=== PATIENT | male | born 1985 | race American Indian/Alaskan Native ===

== ENCOUNTER 2018-06-10 15:58 | Emergency (ER) | payer SELFPAY ==
[2018-06-10 16:53] VITALS: BP 135/105
[2018-06-10] MEDS ORDERED: ASPIRIN PO ONE (16:56)
--- NOTE | 2018-06-10 18:20 | Emergency Department Report ---
ED Chest Pain HPI - General Chief Complaint: Chest Pain Stated Complaint: CHEST PAIN Time Seen by Provider: 06/10/18 17:56 Source: family Mode of arrival: Ambulatory Limitations: No Limitations - History of Present Illness Initial Comments: Mr. Stockton is a 33 yo male with hx of tobacco and alcohol abuse who presents with palpitations, tremors and weight loss over 6 months. Has had intermittent palpitations. Has had LUQ pain wiht eating for the past few weeks. Now he weighs 144 pounds. Formerly weighed 192 pounds in high school. Drinks 6+ beers daily. -: Gradual, month(s) (6) Onset: during rest Pain Location: substernal Severity: moderate Quality: other (palpitations) Consistency: intermittent - Related Data Previous Rx's Medication Instructions Recorded Last Taken Type Famotidine 20 mg PO BID 30 Days #60 tablet 06/10/18 Unknown Rx Allergies Allergy/AdvReac Type Severity Reaction Status Date / Time No Known Allergies Allergy Unverified 06/10/18 16:56 Heart Score - HEART Score History: Slightly suspicious EKG: Normal Age: < 45 Risk factors: No known risk factors Troponin: < normal limit HEART Score: 0 ED Review of Systems ROS: Stated complaint: CHEST PAIN Other details as noted in HPI Comment: All other systems reviewed and negative Constitutional: malaise Cardiovascular: palpitations Gastrointestinal: abdominal pain, nausea ED Past Medical Hx - Past Medical History Previous Medical History?: No - Surgical History Past Surgical History?: No - Social History Smoking Status: Current Every Day Smoker Substance Use Type: Alcohol - Medications Home Medications: Home Medications Medication Instructions Recorded Confirmed Last Taken Type Famotidine 20 mg PO BID 30 Days #60 tablet 06/10/18 Unknown Rx ED Physical Exam - General Limitations: No Limitations General appearance: alert, in no apparent distress, other (appears chronically ill, much older than stated age) - Head Head exam: Present: atraumatic, normocephalic - Eye Eye exam: Present: normal appearance - ENT ENT exam: Present: mucous membranes moist - Neck Neck exam: Present: normal inspection. Absent: tenderness, meningismus - Respiratory Respiratory exam: Present: normal lung sounds bilaterally. Absent: respiratory distress, wheezes, rales, rhonchi - Cardiovascular Cardiovascular Exam: Present: regular rate, normal rhythm, normal heart sounds. Absent: bradycardia, tachycardia, systolic murmur, diastolic murmur, rubs, gallop - GI/Abdominal GI/Abdominal exam: Present: soft, normal bowel sounds. Absent: distended, tenderness, guarding, rebound - Rectal Rectal exam: Present: deferred - Extremities Exam Extremities exam: Present: normal inspection - Back Exam Back exam: Present: normal inspection - Neurological Exam Neurological exam: Present: alert, oriented X3 - Psychiatric Psychiatric exam: Present: depressed. Absent: suicidal ideation - Skin Skin exam: Present: warm, dry, intact, normal color. Absent: rash ED Course Vital Signs 06/10/18 16:47 Temperature 98.8 F Pulse Rate 80 Respiratory 16 Rate Blood Pressure 135/105 O2 Sat by Pulse 99 Oximetry ED Medical Decision Making - EKG Data EKG shows normal: sinus rhythm, axis, intervals, QRS complexes Rate: normal - EKG Data Interpretation: pericarditis, other (diffuse ST elevation SC depression) - Medical Decision Making Mr. Stockton presents with palpitations, weight loss. DDX: hyperthyroidism, sequalae of alcohol use disorder, electolyte abnormalities, PUD. he has started new job. He will have health insurance within 90 days. I suggested primary care full physical exam. EKG showed signs of pericarditis without stereotypical chest pain. I do not suspect acute pericarditis. rx: famotidine for presumed alcoholic gastritis for LUQ pain i strongly suggested cessation of alcohol intake, which patient resisted. He says that his alcohol use is an uncontrollable habit. Critical care attestation.: If time is entered above; I have spent that time in minutes in the direct care of this critically ill patient, excluding procedure time. ED Disposition Clinical Impression: Alcohol abuse, Palpitations, Weight loss, LUQ pain Disposition: DC-01 TO HOME OR SELFCARE Is pt being admited?: No Does the pt Need Aspirin: No Condition: Stable Instructions: Abuse of Alcohol (ED), Palpitations (ED), Gastritis (ED) Prescriptions: Famotidine 20 mg PO BID 30 Days #60 tablet Forms: Work/School Release Form(ED)
== END 2018-06-10 18:34 | disposition home or self-care (01) ==
LOC: ED 15:58
DX: R10.12 Left upper quadrant pain (principal); R00.2 Palpitations; R25.1 Tremor, unspecified; R63.4 Abnormal weight loss; F17.200 Nicotine dependence, unspecified, uncomplicated
CPT/HCPCS: 93005; 93010; 99282

== ENCOUNTER 2019-05-25 16:16 | Emergency (ER) | payer SELFPAY ==
--- NOTE | 2019-05-25 17:00 | Emergency Department Report ---
Blank Doc - Documentation Documentation: 34-year-old male that presents with bilateral ankle and feet swelling. Patient sclera is jaundice. This initial assessment/diagnostic orders/clinical plan/treatment(s) is/are subject to change based on patient's health status, clinical progression and re- assessment by fellow clinical providers in the ED. Further treatment and workup at subsequent clinical providers discretion. Patient/guardians urged not to elope from the ED as their condition may be serious if not clinically assessed and managed. Initial orders include: 1- Patient sent to [facility] for further evaluation and treatment 2- labs
[2019-05-25 18:32] LABS: Basophils % (Auto) 0.8 % (0.0-1.8); Eosinophils # (Auto) 0.1 K/mm3 (0.0-0.4); Eosinophils % (Auto) 0.9 % (0.0-4.3); Hematocrit 26.7 % (35.5-45.6); Lymphocytes # (Auto) 1.9 K/mm3 (1.2-5.4); Lymphocytes % (Auto) 29.2 % (13.4-35.0); Mean Corpuscular HGB Conc 34 % (32-34); Mean Corpuscular Volume 116 fl (84-94); Monocytes # (Auto) 0.6 K/mm3 (0.0-0.8); Monocytes % (Auto) 8.7 % (0.0-7.3); Platelet Count 214 K/mm3 (140-440); Red Cell Distribution Width 15.6 % (13.2-15.2)
[2019-05-25 18:54] LABS: Alanine Aminotransferase 86 units/L (7-56); Albumin 3.7 g/dL (3.9-5); BUN/Creatinine Ratio 8; Blood Urea Nitrogen 5 mg/dL (9-20); Calcium 8.8 mg/dL (8.4-10.2); Hemolysis Index 2
[2019-05-25 18:59] LABS: Hepatitis C Virus Antibody Non-Reactive (NonReactive)
[2019-05-25 19:16] LABS: Hepatitis B Surface Antigen Non-Reactive (Negative)
--- NOTE | 2019-05-25 20:52 | Emergency Department Report ---
HPI - General Chief Complaint: Extremity Injury, Lower Time Seen by Provider: 05/25/19 16:59 - HPI HPI: 34-year-old -[place] male presents to the emergency department with complaint of a two-week history of bilateral lower extremity swelling. Patient presents with some jaundiced eyes. He has a history of alcohol abuse but denies alcohol dependence. He says he last drank a few days ago but "I have slowed down a lot." He says he has been told that he could have liver problems if he continues drinking at the rate that he did. He does not have a primary care physician. He has not taken anything for her symptoms prior to presentation. Patient did have a trip to [place] about 2 weeks ago in which he flew there. He denies any significant abdominal pain, abdominal distention, fever, nausea, vomiting. ED Past Medical Hx - Past Medical History Previous Medical History?: No Additional medical history: cirrohsis of liver - Surgical History Past Surgical History?: No - Social History Smoking Status: Current Every Day Smoker Substance Use Type: None - Medications Home Medications: Home Medications Medication Instructions Recorded Confirmed Last Taken Type Famotidine 20 mg PO BID 30 Days #60 tablet 06/10/18 Unknown Rx ED Review of Systems ROS: Stated complaint: BI ANKLE SWOLLEN Other details as noted in HPI Comment: All other systems reviewed and negative Constitutional: denies: chills, fever Eyes: denies: eye pain, vision change ENT: denies: ear pain, throat pain Respiratory: denies: cough, shortness of breath Cardiovascular: palpitations, edema. denies: chest pain Gastrointestinal: denies: abdominal pain, vomiting Genitourinary: denies: dysuria, discharge Musculoskeletal: joint swelling, myalgia Skin: denies: rash, lesions Neurological: denies: headache, weakness Physical Exam - Physical Exam Vital Signs: Vital Signs 05/25/19 05/25/19 16:54 20:11 Temperature 98.9 F 98.5 F Pulse Rate 96 H 83 Respiratory 18 20 Rate Blood Pressure 137/79 Blood Pressure 146/82 [Right] O2 Sat by Pulse 99 100 Oximetry Physical Exam: GENERAL: The patient is well-developed well-nourished. HENT: Normocephalic. Atraumatic. Patient has moist mucous membranes. EYES: Extraocular motions are intact. Pupils equal reactive to light bilaterally. Scleral icterus. NECK: Supple. Trachea is midline. CHEST/LUNGS: Clear to auscultation. There is no respiratory distress noted. HEART/CARDIOVASCULAR: Regular. There is no tachycardia. There is no murmur. ABDOMEN: Abdomen is soft, nontender. Patient has normal bowel sounds. There is no abdominal distention. SKIN: Skin is warm and dry. 1+ pitting edema of the bilateral lower extremities from the knees down to the ankles. NEURO: The patient is awake, alert, and oriented. The patient is cooperative. The patient has no focal neurologic deficits. Normal speech. MUSCULOSKELETAL: There is no tenderness or deformity. There is no evidence of acute injury. ED Course Vital Signs 05/25/19 05/25/19 16:54 20:11 Temperature 98.9 F 98.5 F Pulse Rate 96 H 83 Respiratory 18 20 Rate Blood Pressure 137/79 Blood Pressure 146/82 [Right] O2 Sat by Pulse 99 100 Oximetry - Consultations Consultation #1: 05/26/19 03:05 I spoke to the retail presentation specialist on-call, Dr. Tracy, agrees that this appears consistent with alcoholic hepatitis and says that the patient can follow up outpatient. He recommends cessation of alcohol use. ED Medical Decision Making - Lab Data Result diagrams: 05/25/19 18:09 05/25/19 18:09 - Radiology Data Radiology results: report reviewed, image reviewed interpreted by me: Chest x-ray does not show any acute process. There are no pleural effusions, obvious pneumonia and there is no pneumothorax. ULTRASOUND ABDOMEN, LIMITED (RIGHT UPPER QUADRANT) INDICATION: Abnormal LFTs, scleral icterus, LE swelling. COMPARISON: None available. FINDINGS: Pancreas: Visualized portion shows no significant abnormality. Liver: Normal. Gallbladder: Gallstones. The wall is mildly thickened measuring 3.3 mm. Negative for wall edema. Bile ducts: Normal. Common Bile Duct measures 2.6 mm. Free fluid: None. Additional Findings: None. IMPRESSION: 1. Gallstones with mild wall thickening. 2. Negative for biliary dilatation. CTA CHEST WITH IV CONTRAST INDICATION: SOB, bilateral lower extremity edema CONTRAST: 100 cc Omnipaque 350 IV COMPARISON: Chest x-ray tonight Three-plane MIP reconstructions were produced. All CT scans at this location are performed using CT dose reduction for ALARA by means of automated exposure control. FINDINGS: No significant axillary or chest wall lesions are seen. No mediastinal or hilar masses are noted. Visualized portions of the upper abdomen show cholelithiasis without definite acute change. Mild fatty infiltration of the liver is noted. Mild chronic changes are seen in the lung baker with mild emphysematous change noted in the upper lobes, unusual at the patient's age. No areas of consolidation are seen. No pulmonary nodules or masses are noted. Aorta shows no aneurysmal dilatation or evidence of dissection. Adequate opacification of the pulmonary arterial system was achieved. I do not see evidence of pulmonary thromboembolism. IMPRESSION: 1. No acute abnormalities are seen. No evidence of pulmonary embolism. 2. Cholelithiasis without acute change seen 3. Mild upper lobe emphysematous changes - Medical Decision Making Patient presents to the emergency department with the complaint of bilateral lower extremity swelling and some discomfort that has been going on for the past 1-2 weeks. He does have some mild pitting edema of the bilateral lower extremities. The patient also has some visible scleral icterus. He has some alcohol abuse history. His labs show elevated LFTs with AST much greater than ALT, elevated total bilirubin and alkaline phosphatase. Abdominal ultrasound shows cholelithiasis without cholecystitis. The patient denies any current shortness of breath or palpitations he says that sometimes she will wake up with them in the morning. He also had a recent trip to [place]. A d-dimer was obtained that was slightly elevated an equivocal. For this reason, the patient had a CT angiography of the chest that did not show any pulmonary embolism, dissection or any other acute process and once again showed the cholelithiasis without cholecystitis. Vital signs stable throughout his ED course. The patient has been set up for an outpatient lower extremity bilateral venous Doppler ultrasound to rule out DVT as the source of the swelling. He was given a dose of Lasix to help with some diuresis. If the Doppler is positive he will be redirected to the emergency department. If negative, the patient has been given referrals for primary care and gastroenterology. He will return to the ER with any worsening of his symptoms or any acute distress. We had a long conversation regarding the need to quit drinking alcohol completely. - Differential Diagnosis liver cirrhosis, CHF, DVT, venous stasis, ascites Critical Care Time: No Critical care attestation.: If time is entered above; I have spent that time in minutes in the direct care of this critically ill patient, excluding procedure time. ED Disposition Clinical Impression: Elevated liver enzymes, Elevated bilirubin, Swelling of both lower extremities, Gallstones Anemia Qualifiers: Anemia type: unspecified type Qualified Code(s): D64.9 - Anemia, unspecified Alcoholic hepatitis Qualifiers: Ascites presence: without ascites Qualified Code(s): K70.10 - Alcoholic hepatitis without ascites Disposition: TO HOME OR SELFCARE Is pt being admited?: No Condition: Stable Instructions: Biliary Colic (ED), Abuse of Alcohol (ED), Leg Edema (ED) Additional Instructions: You would have been given an order form to return to the outpatient imaging portion of the hospital tomorrow to have a bilateral lower extremity ultrasound done to rule out blood clots as the source of your leg swelling and discomfort. If positive, you will be redirected to the emergency department. I am giving you a referral for a local retail presentation specialist, Dr. tracy, to follow up regarding your elevated liver enzymes and bilirubin consistent with your alcoholic hepatitis. Please avoid any further alcohol use. Please avoid any Tylenol/acetaminophen use. Return to the emergency Department with any worsening of your symptoms or any acute distress. Referrals: MOOK TRACY MD [Staff Physician] - 2-3 Days [facility] [Outside] - 2-3 Days Time of Disposition: 00:17
--- NOTE | 2019-05-25 21:04 | Ultrasound Report ---
ULTRASOUND ABDOMEN, LIMITED (RIGHT UPPER QUADRANT) INDICATION: Abnormal LFTs, scleral icterus, LE swelling. COMPARISON: None available. FINDINGS: Pancreas: Visualized portion shows no significant abnormality. Liver: Normal. Gallbladder: Gallstones. The wall is mildly thickened measuring 3.3 mm. Negative for wall edema. Bile ducts: Normal. Common Bile Duct measures 2.6 mm. Free fluid: None. Additional Findings: None. IMPRESSION: 1. Gallstones with mild wall thickening. 2. Negative for biliary dilatation. Signer Name: Sánchez Kemp MD Signed: 05/25/2019 9:00 PM Workstation Name: [id number]
--- NOTE | 2019-05-25 21:24 | XRay Report ---
CHEST 1 VIEW INDICATION: sob. COMPARISON: None. FINDINGS: Support devices: None. Heart: Within normal limits. Lungs/Pleura: No acute air space or interstitial disease. Additional findings: None. IMPRESSION: No acute abnormality. Signer Name: Sánchez Kemp MD Signed: 05/25/2019 9:20 PM Workstation Name: [id number]
[2019-05-25 21:32] LABS: INR 1.08 (0.87-1.13)
[2019-05-25 21:33] LABS: Partial Thromboplastin Time 30.9 Sec. (24.2-36.6)
--- NOTE | 2019-05-26 00:02 | Cat Scan Report ---
CTA CHEST WITH IV CONTRAST INDICATION: SOB, bilateral lower extremity edema CONTRAST: 100 cc Omnipaque 350 IV COMPARISON: Chest x-ray tonight Three-plane MIP reconstructions were produced. All CT scans at this location are performed using CT d ose reduction for ALARA by means of automated exposure control. FINDINGS: No significant axillary or chest wall lesions are seen. No mediastinal or hilar masses are noted. Visualized portions of the upper abdomen show cholelithiasis without definite acute change. Mi ld fatty infiltration of the liver is noted. Mild chronic changes are seen in the lung baker with mi ld emphysematous change noted in the upper lobes, unusual at the patient's age. No areas of consolida tion are seen. No pulmonary nodules or masses are noted. Aorta shows no aneurysmal dilatation or evidence of dissection. Adequate opacification of the pulmonary arterial system was achieved. I do not see evidence of pulmon teetee thromboembolism. IMPRESSION: 1. No acute abnormalities are seen. No evidence of pulmonary embolism. 2. Cholelithiasis without acute change seen 3. Mild upper lobe emphysematous changes Signer Name: Cordell Waldrop MD Signed: 05/25/2019 11:57 PM Workstation Name: [id number]
[2019-05-26] MEDS ORDERED: LASIX IV ONE (00:12)
[2019-05-26 01:40] VITALS: BP 137/82
== END 2019-05-26 00:45 | disposition home or self-care (01) ==
LOC: ED 16:16
DX: R94.5 Abnormal results of liver function studies (principal); E80.7 Disorder of bilirubin metabolism, unspecified; M79.89 Other specified soft tissue disorders; K80.20 Calculus of gallbladder without cholecystitis without obstruction; D64.9 Anemia, unspecified; K70.10 Alcoholic hepatitis without ascites; K74.60 Unspecified cirrhosis of liver; F17.200 Nicotine dependence, unspecified, uncomplicated; Z79.899 Other long term (current) drug therapy
CPT/HCPCS: 36415; 71045; 71275; 76705; 80053; 80074; 83735; 83880; 84443; 85025; 85379; 85610; 85730; 96374; 99284; J1940; Q9967

== ENCOUNTER 2019-05-26 15:26 | Emergency (ER) | payer OTHER ==
[2019-05-26 15:32] VITALS: BP 128/75
--- NOTE | 2019-05-26 15:35 | Event Note ---
ED Screening Note Date of service: 05/26/19 Time: 15:33 ED Screening Note: This is a 34 y.o. M. that presents to the ER with BLE pain and swelling. Patient seen yesterday and ordered outpatient duplex Doppler. Patient attempt to have study but unable due to insurance. States he felt better after receiving Lovenox last night. States cramping is returning. This initial assessment/diagnostic orders/clinical plan/treatment(s) is/are subject to change based on patients health status, clinical progression and re- assessment by fellow clinical providers in the ED. Further treatment and workup at subsequent clinical providers discretion. Patient/guardian urged not to elope from the ED as their condition may be serious if not clinically assessed and managed. Initial orders include: Bilateral duplex Doppler.
--- NOTE | 2019-05-26 17:42 | Vascular Lab Report ---
DUPLEX DOPPLER LOWER EXTREMITY VEINS, BILATERAL INDICATION: bilateral calf pain, r/o DVT. TECHNIQUE: Duplex doppler imaging was performed through the veins of both lower extremities using venous delores maryanne and other maneuvers. COMPARISON: None available. FINDINGS: Right Common Femoral vein: Negative. Right Superficial Femoral vein: Negative. Right Popliteal vein: Negative. Right Calf veins: Negative. Left Common Femoral vein: Negative. Left Superficial Femoral vein: Negative. Left Popliteal vein: Negative. Left Calf veins: Negative. Additional findings: None. IMPRESSION: 1. No sonographic evidence for DVT in either lower extremity. Signer Name: Toby Gardner MD Signed: 05/26/2019 5:38 PM Workstation Name: [id number]
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
== END 2019-05-26 18:43 | disposition home or self-care (01) ==
LOC: ED 15:26
DX: M79.605 Pain in left leg (principal); M79.604 Pain in right leg; F17.200 Nicotine dependence, unspecified, uncomplicated
CPT/HCPCS: 93970

== ENCOUNTER 2020-08-08 09:32 | Emergency (ER) | payer SELFPAY ==
[2020-08-08 10:35] LABS: Hematocrit 29.5 % (35.5-45.6); Hemoglobin 9.9 gm/dl (11.8-15.2); Mean Corpuscular HGB Conc 34 % (32-34); Platelet Count 259 K/mm3 (140-440); Red Blood Count 2.65 M/mm3 (3.65-5.03); Red Cell Distribution Width 14.7 % (13.2-15.2)
[2020-08-08 10:50] LABS: Mean Corpuscular Volume 111 fl (84-94)
[2020-08-08 11:06] LABS: Alanine Aminotransferase 57 units/L (7-56); Albumin 2.7 g/dL (3.9-5); Blood Urea Nitrogen 4 mg/dL (9-20); Calcium 8.1 mg/dL (8.4-10.2); Hemolysis Index 21
[2020-08-08 11:14] LABS: BUN/Creatinine Ratio 8
[2020-08-08 11:56] LABS: Basophils % (Manual) 0 % (0.0-1.8); Total Cells Counted 100
[2020-08-08 11:57] LABS: Macrocytosis 1+; Target Cells 1+
[2020-08-08 11:58] LABS: Platelet Estimate Consistent w Auto; Poikilocytosis Few
--- NOTE | 2020-08-08 13:08 | Event Note ---
ED Screening Note Date of service: 08/08/20 Time: 13:08 ED Screening Note: This initial assessment/diagnostic orders/clinical plan/treatment(s) is/are subject to change based on patients health status, clinical progression and re- assessment by fellow clinical providers in the ED. Further treatment and workup at subsequent clinical providers discretion. Patient/guardian urged not to elope from the ED as their condition may be serious if not clinically assessed and managed. Initial orders include: cbc, cmp, lipase, urinalysis
[2020-08-08] MEDS ORDERED: methylPREDNISolone Sod Succinate 125 MG/2 ML INJ IM ONE (13:49)
[2020-08-08] MEDS ORDERED: FAMOTIDINE 20 MG TAB PO ONE (13:51)
[2020-08-08] MEDS ORDERED: diphenhydrAMINE 25 MG CAP PO ONE (13:51)
--- NOTE | 2020-08-08 13:58 | Emergency Department Report ---
HPI - General Chief Complaint: Abdominal Pain Time Seen by Provider: 08/08/20 13:37 - HPI HPI: Room 19 Patient is a 35-year-old male present with a chief complaint of rash. Patient states for the past 3 weeks he has had a pruritic rash that started on bilateral lower extremities but now has progressed to all extremities and his waist and buttocks. Patient states she has used calamine lotion. The patient denies any new medications or new exposures that he is aware of including detergents. Patient states the rash is pruritic. ED Past Medical Hx - Past Medical History Previous Medical History?: Yes Hx Hypertension: Yes Hx Liver Disease: Yes (Alcohol heptitis) Additional medical history: cirrohsis of liver - Surgical History Past Surgical History?: No - Family History Family history: no significant - Social History Smoking Status: Current Every Day Smoker (1/3 pack/day) Substance Use Type: None (Denies illicit drug use) - Medications Home Medications: Home Medications Medication Instructions Recorded Confirmed Last Taken Type Famotidine [Pepcid] 40 mg PO QHS #30 tablet 04/12/20 Unknown Rx Folic Acid [Folvite] 1 mg PO QDAY #30 tablet 04/12/20 Unknown Rx Multivitamin Tab [Multiple Vitamin 1 each PO QDAY #30 tablet 04/12/20 Unknown Rx TAB (Theragran)] Thiamine [Vitamin B-1] 100 mg PO QDAY #30 tablet 04/12/20 Unknown Rx atenoloL [Tenormin] 25 mg PO QDAY #30 tablet 04/12/20 Unknown Rx Famotidine [Pepcid] 20 mg PO BID #6 tablet 08/08/20 Unknown Rx Prednisone [predniSONE 10 mg 10 mg PO .TAPER #1 tab.ds.pk 08/08/20 Unknown Rx (6-Day Pack, 21 Tabs)] diphenhydrAMINE [Benadryl CAP] 50 mg PO Q6HR #24 capsule 08/08/20 Unknown Rx ED Review of Systems ROS: Stated complaint: RASH Other details as noted in HPI Constitutional: no symptoms reported Eyes: denies: eye pain ENT: denies: throat pain Respiratory: no symptoms reported Cardiovascular: denies: chest pain Endocrine: no symptoms reported Gastrointestinal: other (Occasional loss of appetite) Genitourinary: denies: dysuria Skin: rash, pruritus Physical Exam - Physical Exam Vital Signs: Vital Signs 08/08/20 09:58 Temperature 98.4 F Pulse Rate 108 H Respiratory 18 Rate Blood Pressure 108/81 O2 Sat by Pulse 98 Oximetry Physical Exam: GENERAL: The patient is well-developed well-nourished male standing in room not appearing to be in acute distress HEENT: Normocephalic. Atraumatic. Extraocular motions are intact. Patient has moist mucous membranes. NECK: Supple. Trachea midline CHEST/LUNGS: Clear to auscultation. There is no respiratory distress noted. HEART/CARDIOVASCULAR: Regular. There is no tachycardia. There is no gallop rub or murmur. ABDOMEN: Abdomen is soft, nontender. Patient has normal bowel sounds. SKIN: There is a dry scaly rash covered with calamine lotion on the medial aspect of both legs and buttocks. There is a rash present under the left axilla and upper extremities. No petechia or purpura appreciated NEURO: The patient is awake, alert, and oriented. The patient is cooperative. The patient has no focal neurologic deficits. The patient has normal speech and gait. MUSCULOSKELETAL: There is no evidence of acute injury. ED Course Vital Signs 08/08/20 09:58 Temperature 98.4 F Pulse Rate 108 H Respiratory 18 Rate Blood Pressure 108/81 O2 Sat by Pulse 98 Oximetry ED Medical Decision Making - Lab Data Result diagrams: 08/08/20 10:18 08/08/20 10:18 Laboratory Tests 08/08/20 08/08/20 08/08/20 10:18 10:18 10:18 WBC 8.8 RBC 2.65 L Hgb 9.9 L Hct 29.5 L MCV 111 H MCH 37 H MCHC 34 RDW 14.7 Plt Count 259 Lymph # (Auto) Nanoelectronics Engineer Add Manual Diff Complete Total Counted 100 Seg Neutrophils % Nanoelectronics Engineer Seg Neuts % (Manual) 68.0 Band Neutrophils % 0 Lymphocytes % (Manual) 28.0 Reactive Lymphs % (Man) 0 Monocytes % (Manual) 2.0 Eosinophils % (Manual) 2.0 Basophils % (Manual) 0 Metamyelocytes % 0 Myelocytes % 0 Promyelocytes % 0 Blast Cells % 0 Nucleated RBC % Not Reportable Seg Neutrophils # Man 6.0 Band Neutrophils # 0.0 Lymphocytes # (Manual) 2.5 Abs React Lymphs (Man) 0.0 Monocytes # (Manual) 0.2 Eosinophils # (Manual) 0.2 Basophils # (Manual) 0.0 Metamyelocytes # 0.0 Myelocytes # 0.0 Promyelocytes # 0.0 Blast Cells # 0.0 WBC Morphology Not Reportable Hypersegmented Neuts Not Reportable Hyposegmented Neuts Not Reportable Hypogranular Neuts Not Reportable Smudge Cells Not Reportable Toxic Granulation Not Reportable Toxic Vacuolation Not Reportable Dohle Bodies Not Reportable Pelger-Huet Anomaly Not Reportable Farzad Rods Not Reportable Platelet Estimate Consistent w auto Clumped Platelets Not Reportable Plt Clumps, EDTA Not Reportable Large Platelets Not Reportable Giant Platelets Not Reportable Platelet Satelliting Not Reportable Plt Morphology Comment Not Reportable RBC Morphology Not Reportable Dimorphic RBCs Not Reportable Polychromasia 1+ Hypochromasia Not Reportable Poikilocytosis Few Anisocytosis Not Reportable Microcytosis Not Reportable Macrocytosis 1+ Spherocytes Not Reportable Pappenheimer Bodies Not Reportable Sickle Cells Not Reportable Target Cells 1+ Tear Drop Cells Not Reportable Ovalocytes Not Reportable Helmet Cells Not Reportable Singh-Haralson Bodies Not Reportable [place] Rings Not Reportable [place] Cells Not Reportable Bite Cells Not Reportable Crenated Cell Not Reportable Elliptocytes Not Reportable Acanthocytes (Spur) Not Reportable Rouleaux Not Reportable Hemoglobin C Crystals Not Reportable Schistocytes Not Reportable Malaria parasites Not Reportable Ortiz Bodies Not Reportable Hem Pathologist Commnt No Sodium 132 L Potassium 3.8 Chloride 98.8 Carbon Dioxide 24 Anion Gap 13 BUN 4 L Creatinine 0.5 L Estimated GFR > 60 BUN/Creatinine Ratio 8 Glucose 105 H Calcium 8.1 L Total Bilirubin 5.10 H AST 175 H ALT 57 H Alkaline Phosphatase 543 H Total Protein 6.4 Albumin 2.7 L Albumin/Globulin Ratio 0.7 Lipase 13 - Differential Diagnosis Allergic reaction, atopic dermatitis Critical care attestation.: If time is entered above; I have spent that time in minutes in the direct care of this critically ill patient, excluding procedure time. ED Disposition Clinical Impression: Allergic reaction Disposition: DC-01 TO HOME OR SELFCARE Is pt being admited?: No Does the pt Need Aspirin: No Condition: Stable Additional Instructions: Return to the emergency department should you develop worsening symptoms, inability to tolerate food or liquids, high fever or any other concerns Prescriptions: diphenhydrAMINE [Benadryl CAP] 50 mg PO Q6HR #24 capsule Famotidine [Pepcid] 20 mg PO BID #6 tablet Prednisone [predniSONE 10 mg (6-Day Pack, 21 Tabs)] 10 mg PO .TAPER #1 tab.ds.pk Referrals: [facility] [Provider Group] - 3-5 Days FANNY BARDALES MD [Referring] - 3-5 Days (Dr. Bardales is a bowling pin setters installer. Please follow-up with her for further evaluation) Time of Disposition: 14:03
[2020-08-08 14:35] VITALS: BP 126/91
== END 2020-08-08 14:35 | disposition home or self-care (01) ==
LOC: ED 09:32
DX: T78.40XA Allergy, unspecified, initial encounter (principal); I10 Essential (primary) hypertension; F17.200 Nicotine dependence, unspecified, uncomplicated; Z79.899 Other long term (current) drug therapy; X58.XXXA Exposure to other specified factors, initial encounter
CPT/HCPCS: 36415; 80053; 83690; 85007; 85025; 96372; 99283; J2930

== ENCOUNTER 2020-08-17 09:30 | Emergency (ER) | payer SELFPAY ==
[2020-08-17 10:59] LABS: Hematocrit 30.3 % (35.5-45.6); Hemoglobin 10.4 gm/dl (11.8-15.2); Mean Corpuscular HGB Conc 34 % (32-34); Mean Corpuscular Volume 110 fl (84-94); Platelet Count 235 K/mm3 (140-440); Red Blood Count 2.75 M/mm3 (3.65-5.03); Red Cell Distribution Width 15.9 % (13.2-15.2)
[2020-08-17 11:15] LABS: Alanine Aminotransferase 116 units/L (7-56); Albumin 2.9 g/dL (3.9-5); Blood Urea Nitrogen 15 mg/dL (9-20); Calcium 8.6 mg/dL (8.4-10.2); Hemolysis Index 0
[2020-08-17 11:20] LABS: BUN/Creatinine Ratio 21
[2020-08-17 17:49] VITALS: BP 133/85
[2020-08-17] MEDS ORDERED: PANTOPRAZOLE 40 MG INJ IV ONE (17:53)
[2020-08-17] MEDS ORDERED: SODIUM CHLORIDE 0.9% 1000 ML 1,000 ML IV ONE (17:54)
--- NOTE | 2020-08-17 18:50 | Emergency Department Report ---
HPI - General Chief Complaint: GI Bleed Time Seen by Provider: 08/17/20 17:25 - HPI HPI: This is a 35-year-old male who presents to the emergency department with a complaint of a 3-4 history of dark stool and some mild abdominal discomfort. He denies any fever, nausea, vomiting, diarrhea. Patient has a history of alcoholic cirrhosis and alcoholic hepatitis. He was here in March of this year and had an EGD that showed severe gastritis. The patient was placed on PPI and told to quit drinking alcohol, which the patient says he has done. He is a tob acco smoker. He also has a past medical history of GERD and hypertension. The patient has not been compliant with any outpatient follow-up with primary care or gastroenterology. No known aggravating or alleviating factors. He has not taken anything for his symptoms prior to presentation today. ED Past Medical Hx - Past Medical History Previous Medical History?: Yes Hx Hypertension: Yes Hx Liver Disease: Yes (Alcohol heptitis) Additional medical history: cirrohsis of liver - Social History Smoking Status: Current Every Day Smoker - Medications Home Medications: Home Medications Medication Instructions Recorded Confirmed Last Taken Type Famotidine [Pepcid] 40 mg PO QHS #30 tablet 04/12/20 Unknown Rx Folic Acid [Folvite] 1 mg PO QDAY #30 tablet 04/12/20 Unknown Rx Multivitamin Tab [Multiple Vitamin 1 each PO QDAY #30 tablet 04/12/20 Unknown Rx TAB (Theragran)] Thiamine [Vitamin B-1] 100 mg PO QDAY #30 tablet 04/12/20 Unknown Rx atenoloL [Tenormin] 25 mg PO QDAY #30 tablet 04/12/20 Unknown Rx Famotidine [Pepcid] 20 mg PO BID #6 tablet 08/08/20 Unknown Rx Prednisone [predniSONE 10 mg 10 mg PO .TAPER #1 tab.ds.pk 08/08/20 Unknown Rx (6-Day Pack, 21 Tabs)] diphenhydrAMINE [Benadryl CAP] 50 mg PO Q6HR #24 capsule 08/08/20 Unknown Rx ED Review of Systems ROS: Stated complaint: BLOOD IN STOOL, INFLAMMATION OF THE ABD Other details as noted in HPI Comment: All other systems reviewed and negative Constitutional: denies: chills, fever Eyes: denies: eye pain, vision change ENT: denies: ear pain, throat pain Respiratory: denies: cough, shortness of breath Cardiovascular: denies: chest pain, palpitations Gastrointestinal: abdominal pain, melena. denies: vomiting Genitourinary: denies: dysuria, discharge Musculoskeletal: denies: back pain, arthralgia Skin: denies: rash, lesions Neurological: denies: headache, weakness Physical Exam - Physical Exam Vital Signs: Vital Signs 08/17/20 08/17/20 08/17/20 09:48 17:42 17:46 Temperature 98.3 F Pulse Rate 85 70 Respiratory 18 17 Rate Blood Pressure 127/87 133/85 Blood Pressure [Right] O2 Sat by Pulse 98 100 99 Oximetry 08/17/20 17:48 Temperature 98.7 F Pulse Rate 77 Respiratory 17 Rate Blood Pressure Blood Pressure 133/85 [Right] O2 Sat by Pulse 100 Oximetry Physical Exam: GENERAL: The patient is well-developed well-nourished. HENT: Normocephalic. Atraumatic. Patient has moist mucous membranes. EYES: Extraocular motions are intact. Pupils equal reactive to light bilaterally. Patient has scleral icterus. NECK: Supple. Trachea is midline. CHEST/LUNGS: Clear to auscultation. There is no respiratory distress noted. HEART/CARDIOVASCULAR: Regular. There is no tachycardia. There is no murmur. ABDOMEN: Abdomen is soft, nontender. No guarding. Patient has normal bowel so unds. SKIN: Skin is warm and dry. NEURO: The patient is awake, alert, and oriented. The patient is cooperative. The patient has no focal neurologic deficits. Normal speech. MUSCULOSKELETAL: There is no tenderness or deformity. There is no limitation range of motion. ED Course Vital Signs 08/17/20 08/17/20 08/17/20 09:48 17:42 17:46 Temperature 98.3 F Pulse Rate 85 70 Respiratory 18 17 Rate Blood Pressure 127/87 133/85 Blood Pressure [Right] O2 Sat by Pulse 98 100 99 Oximetry 08/17/20 17:48 Temperature 98.7 F Pulse Rate 77 Respiratory 17 Rate Blood Pressure Blood Pressure 133/85 [Right] O2 Sat by Pulse 100 Oximetry - Consultations Consultation #1: 08/17/20 20:04 I spoke to the cell plasterer on-call, Dr. Hayes. We discussed the patient's symptoms, presentation, lab and imaging results. He agrees that the patient can be safely discharged at this time with close outpatient follow-up within the next week. The patient should continue on his PPI and avoid any alcohol or acetaminophen use. ED Medical Decision Making - Lab Data Result diagrams: 08/17/20 10:26 08/17/20 10:26 - Radiology Data Radiology results: report reviewed, image reviewed interpreted by me: Abdominal x-ray shows nonspecific nonobstructive bowel gas. ULTRASOUND ABDOMEN, LIMITED (RIGHT UPPER QUADRANT) INDICATION: abd pain, hx of alcoholic cirhosis, increased LFT. COMPARISON: CT scan dated 04/09/2020 and ultrasound dated 05/25/2019 FINDINGS: Pancreas: Visualized portion shows no significant abnormality. Liver: Normal. Gallbladder: There is cholelithiasis. The gallbladder is contracted. Bile ducts: Normal. Common Bile Duct measures 3 mm. Free fluid: None. Additional Findings: None. IMPRESSION: 1. Cholelithiasis is again noted. There is no bowel dilatation. - Medical Decision Making This patient presents to the emergency department with a complaint of a 3 to 4- day history of melanotic stools. He will occasionally have some mild abdominal discomfort but does not have any at the time of my examination with or without palpation. He does have scleral icterus. Patient's labs shows some anemia, but not at a level that requires transfusion, and it is consistent with previous visits. Patient does have elevated liver enzymes and bilirubin. Once again this is consistent with previous visits and most likely secondary to his previous alcohol abuse causing liver cirrhosis and alcoholic hepatitis. Abdominal ultrasound shows cholelithiasis without cholecystitis, choledocholithiasis, or any other acute processes. Abdominal x-ray shows nonspecific nonobstructive bowel gas. Vital signs have been reassuring throughout his ED course. I spoke with gastroenterology who agrees with the plan for discharge home and close outpatient follow-up with GI within the next week. The patient follows up with [facility] for primary care. He has been taking his medications as previously prescribed including a PPI. He has quit drinking alco hol. We discussed staying away from any acetaminophen/Tylenol and smoking cessation. He will return to the emergency department with any worsening of his symptoms or with any acute distress. Critical Care Time: No Critical care attestation.: If time is entered above; I have spent that time in minutes in the direct care of this critically ill patient, excluding procedure time. ED Disposition Clinical Impression: History of alcohol abuse, Elevated liver enzymes, Melena Alcoholic hepatitis Qualifiers: Ascites presence: without ascites Qualified Code(s): K70.10 - Alcoholic hepatitis without ascites Disposition: TO HOME OR SELFCARE Is pt being admited?: No Condition: Stable Instructions: Alcoholic Liver Disease, [id number], Gastrointestinal Bleeding, Alcoholic Hepatitis Additional Instructions: Please follow-up with gastroenterology within the next week. I have given you a referral for [facility]. Continue with your medications as previously prescribed. Do not drink any alcohol or use any acetaminophen/Tylenol. Return to the emergency department with any worsening of your symptoms, new or concerning symptoms not addressed during this current emergency department visit, or with any acute distress. Referrals: [facility] [Primary Care Provider] - 2-3 Days [facility] [Provider Group] - 3-5 Days Time of Disposition: 20:06
--- NOTE | 2020-08-17 19:25 | Ultrasound Report ---
ULTRASOUND ABDOMEN, LIMITED (RIGHT UPPER QUADRANT) INDICATION: abd pain, hx of alcoholic cirhosis, increased LFT. COMPARISON: CT scan dated 04/09/2020 and ultrasound dated 05/25/2019 FINDINGS: Pancreas: Visualized portion shows no significant abnormality. Liver: Normal. Gallbladder: There is cholelithiasis. The gallbladder is contracted. Bile ducts: Normal. Common Bile Duct measures 3 mm. Free fluid: None. Additional Findings: None. IMPRESSION: 1. Cholelithiasis is again noted. There is no bowel dilatation. Signer Name: Omega Guillen MD Signed: 08/17/2020 7:20 PM Workstation Name: [id number]
--- NOTE | 2020-08-17 20:16 | XRay Report ---
ABDOMEN 2 VIEW(S) INDICATION / CLINICAL INFORMATION: Abd pain. COMPARISON: None available. FINDINGS: TUBES / LINES: None. BOWEL GAS PATTERN/EXTRALUMINAL GAS: No significant abnormality. No free air. ADDITIONAL FINDINGS: No significant additional findings. IMPRESSION: 1. No acute abnormality. Signer Name: Omega Guillen MD Signed: 08/17/2020 8:12 PM Workstation Name: [id number]
== END 2020-08-17 22:00 | disposition home or self-care (01) ==
LOC: ED 09:30
DX: K70.10 Alcoholic hepatitis without ascites (principal); K92.1 Melena; R74.8 Abnormal levels of other serum enzymes; F10.11 Alcohol abuse, in remission; I10 Essential (primary) hypertension; F17.200 Nicotine dependence, unspecified, uncomplicated; Z79.899 Other long term (current) drug therapy
CPT/HCPCS: 36415; 74019; 76705; 80053; 85027; 86850; 86900; 86901; 96361; 96374; 99284; C9113; J7030

== ENCOUNTER 2020-08-24 22:10 | Inpatient (IN) | payer OTHER ==
[2020-08-24] MEDS ORDERED: SODIUM CHLORIDE 0.9% 1000 ML 1,000 ML IV ONE (23:51)
--- NOTE | 2020-08-24 23:52 | Emergency Department Report ---
ED Syncope HPI - General Chief Complaint: Syncope Stated Complaint: SYNCOPE Time Seen by Provider: 08/24/20 23:48 Source: patient, old records Exam Limitations: no limitations - History of Present Illness Initial Comments: Patient is a 35-year-old male who presents emergency room with complaints of syncopal episode x2 today, chills, jaundice, weakness, fatigue and melena. Ami ent states his symptoms are worsening. Patient states his symptoms started 5 days ago and are worsening. Patient states he was seen here recently. Patient brought directly from triage due to hypotension. Patient denies chest pain or shortness of breath. Patient states generally she is not feeling well. Patient denies recent travel. Patient denies recent international travel. Patient denies exposure to the novel coronavirus. Patient denies sick contacts. Patient denies fever and chills. Patient denies cough. Patient denies diarrhea. Patient denies coming in contact with anybody with symptoms of the novel coronavirus. Timing/Prior Episodes: multiple episodes today Precipitating Factors: Positive: lightheadedness Context: activity Loss of Consciousness: brief (seconds) Current Symptoms: lightheadedness, pale, weakness - Related Data Allergies/Adverse Reactions: Allergies No Known Allergies Allergy (Verified 03/29/20 23:38) Home Medications: Ambulatory Orders Famotidine [Pepcid] 40 mg PO QHS #30 tablet 04/12/20 Folic Acid [Folvite] 1 mg PO QDAY #30 tablet 04/12/20 Multivitamin Tab [Multiple Vitamin TAB (Theragran)] 1 each PO QDAY #30 tablet 04/12/20 Thiamine [Vitamin B-1] 100 mg PO QDAY #30 tablet 04/12/20 atenoloL [Tenormin] 25 mg PO QDAY #30 tablet 04/12/20 Famotidine [Pepcid] 20 mg PO BID #6 tablet 08/08/20 Prednisone [predniSONE 10 mg (6-Day Pack, 21 Tabs)] 10 mg PO .TAPER #1 tab.ds.pk 08/08/20 diphenhydrAMINE [Benadryl CAP] 50 mg PO Q6HR #24 capsule 08/08/20 ED Review of Systems ROS: Stated complaint: SYNCOPE Other details as noted in HPI Constitutional: chills, malaise, weakness. denies: fever Eyes: denies: eye pain, eye discharge, vision change ENT: denies: ear pain, throat pain Respiratory: denies: cough, shortness of breath, wheezing Cardiovascular: denies: chest pain, palpitations Endocrine: no symptoms reported Gastrointestinal: melena. denies: abdominal pain, nausea, diarrhea Genitourinary: denies: urgency, dysuria Musculoskeletal: denies: back pain, joint swelling, arthralgia Skin: as per HPI, change in color. denies: rash, lesions Neurological: weakness. denies: headache, paresthesias Psychiatric: denies: anxiety, depression Hematological/Lymphatic: denies: easy bleeding, easy bruising ED Past Medical Hx - Past Medical History Previous Medical History?: Yes Hx Hypertension: Yes Hx Liver Disease: Yes (Alcohol hepatitis) Additional medical history: cirrhosis of liver - Surgical History Past Surgical History?: No - Family History Family history: no significant - Social History Smoking Status: Current Every Day Smoker Substance Use Type: None - Medications Home Medications: Home Medications Medication Instructions Recorded Confirmed Last Taken Type Famotidine [Pepcid] 40 mg PO QHS #30 tablet 04/12/20 Unknown Rx Folic Acid [Folvite] 1 mg PO QDAY #30 tablet 04/12/20 Unknown Rx Multivitamin Tab [Multiple Vitamin 1 each PO QDAY #30 tablet 04/12/20 Unknown Rx TAB (Theragran)] Thiamine [Vitamin B-1] 100 mg PO QDAY #30 tablet 04/12/20 Unknown Rx atenoloL [Tenormin] 25 mg PO QDAY #30 tablet 04/12/20 Unknown Rx Famotidine [Pepcid] 20 mg PO BID #6 tablet 08/08/20 Unknown Rx Prednisone [predniSONE 10 mg 10 mg PO .TAPER #1 tab.ds.pk 08/08/20 Unknown Rx (6-Day Pack, 21 Tabs)] diphenhydrAMINE [Benadryl CAP] 50 mg PO Q6HR #24 capsule 08/08/20 Unknown Rx ED Physical Exam - General Limitations: Physical Limitation General appearance: alert, in no apparent distress - Head Head exam: Present: atraumatic, normocephalic - Eye Eye exam: Present: normal appearance - ENT ENT exam: Present: mucous membranes moist - Neck Neck exam: Present: normal inspection - Respiratory Respiratory exam: Present: normal lung sounds bilaterally. Absent: respiratory distress - Cardiovascular Cardiovascular Exam: Present: regular rate, normal rhythm. Absent: systolic murmur, diastolic murmur, rubs, gallop - GI/Abdominal GI/Abdominal exam: Present: soft, normal bowel sounds. Absent: tenderness - Rectal Rectal exam: Present: heme (+) stool - Extremities Exam Extremities exam: Present: normal inspection - Back Exam Back exam: Present: normal inspection - Neurological Exam Neurological exam: Present: alert, oriented X3 - Psychiatric Psychiatric exam: Present: normal affect, normal mood - Skin Skin exam: Present: warm, dry, intact, normal color. Absent: rash ED Course Vital Signs 08/24/20 08/25/20 08/25/20 23:33 00:21 00:30 Temperature 97.2 F L Pulse Rate 138 H 145 H 139 H Respiratory 22 17 15 Rate Blood Pressure 78/46 97/55 O2 Sat by Pulse 99 99 100 Oximetry 08/25/20 08/25/20 08/25/20 00:46 01:00 01:16 Temperature Pulse Rate 129 H 134 H 128 H Respiratory 16 16 17 Rate Blood Pressure 97/55 102/57 102/57 O2 Sat by Pulse 100 100 100 Oximetry 08/25/20 08/25/20 08/25/20 01:30 01:46 02:00 Temperature Pulse Rate 129 H 130 H 127 H Respiratory 18 21 20 Rate Blood Pressure 100/51 100/51 105/53 O2 Sat by Pulse 100 100 Oximetry - Reevaluation(s) Reevaluation #1: Patient is receiving fluids and his blood pressure and heart rate are improving. 08/25/20 00:20 Reevaluation #2: Patient states he is feeling a little bit better. Patient's blood pressure is improving. 08/25/20 00:50 Reevaluation #3: Patient's color is improving. Patient agrees to have transfusion. Patient will be given another liter of fluids while waiting on blood. 08/25/20 01:20 Reevaluation #4: I discussed all results with patient. I discussed plan of care with patient. Patient agrees with plan of care and admission. Patient to be admitted to the hospitalist service. 08/25/20 02:20 - Consultations Consultation #1: Hospitalist consulted for admission. Hospitalist to admit patient. 08/25/20 02:20 Consultation #2: GI paged 08/25/20 02:21 I discussed case with Dr. Hayes GI. Dr. Hayes wants patient n.p.o., octreotide drip and bolus and Protonix drip and a second unit of blood given. Dr. Hayes recommends if INR is over 1.5, patient to be given FFP. 08/25/20 02:35 ED Medical Decision Making - Lab Data Result diagrams: 08/25/20 00:22 08/25/20 00:22 - Radiology Data Radiology results: report reviewed CT head/brain wo con INDICATION: Pt complains of 2 syncopal episodes today with weakness. TECHNIQUE: Routine CT head without contrast. All CT scans at this location are performed using CT dose reduction for ALARA by means of automated exposure control. COMPARISON: None. FINDINGS: BRAIN / INTRACRANIAL CONTENTS: No acute hemorrhage, mass effect, midline shift, or hydrocephalus. No appreciable acute large territorial or lacunar infarct. There appears to be mild cerebral and cerebellar volume loss with prominent sulcal spaces, more than anticipated for patient's age. ORBITS: No significant abnormality of visualized orbits. SINUSES / MASTOIDS: No significant abnormality of visualized sinuses and mastoid air cells. ADDITIONAL FINDINGS: None. IMPRESSION: 1. No acute intracranial abnormality on noncontrast CT of the brain. 2. There appears to be mild parenchymal volume loss which appears slightly more prominent than expected for patient's age. - Medical Decision Making Patient is a 35-year-old male who presents emergency room with complaints of syncopal episode x2, weakness, jaundice, fatigue. Patient also complained of dark stool. Patient's guaiac was done and was positive for occult blood and melena noted. Patient was found to be hypotensive in triage and brought directly back and the patient was given a liter of fluid and his blood pressure responded well. Patient had labs done which shows severe anemia. Patient was typed and screened and transfused 1 unit. Patient had a head CT for the syncopal episodes and was negative for acute findings. Patient also found to have abnormal LFTs. Patient given fluids and his blood pressure dramatically improved. Patient admitted to the hospital service for further evaluation treatment. GI consulted. Recommendations from GI received. - Differential Diagnosis Anemia, melena, weakness, fatigue, hypotension, syncope Critical Care Time: Yes Critical care time in (mins) excluding proc time.: 45 Critical care attestation.: If time is entered above; I have spent that time in minutes in the direct care of this critically ill patient, excluding procedure time. Critical Care Time: 45 minutes ED Disposition Clinical Impression: Melena, Jaundice, Weakness, Abnormal LFTs (liver function tests), Upper GI bleeding, Hypovolemia, Hyperglycemia, Elevated liver enzymes GI bleed Qualifiers: GI bleed type/associated pathology: melena Qualified Code(s): K92.1 - Melena Syncope Qualifiers: Syncope type: unspecified Qualified Code(s): R55 - Syncope and collapse Hepatic failure Qualifiers: Liver failure chronicity: acute Hepatic coma status: without hepatic coma Qualified Code(s): K72.00 - Acute and subacute hepatic failure without coma Hypotension Qualifiers: Hypotension type: unspecified hypotension type Qualified Code(s): I95.9 - Hypotension, unspecified Anemia Qualifiers: Anemia type: unspecified type Qualified Code(s): D64.9 - Anemia, unspecified Disposition: DC-09 OP ADMIT IP TO THIS HOSP Is pt being admited?: Yes Does the pt Need Aspirin: No Condition: Critical Instructions: Syncope (ED) Time of Disposition: 02:22
--- NOTE | 2020-08-25 00:53 | Cat Scan Report ---
CT head/brain wo con INDICATION: Pt complains of 2 syncopal episodes today with weakness. TECHNIQUE: Routine CT head without contrast. All CT scans at this location are performed using CT dos e reduction for ALARA by means of automated exposure control. COMPARISON: None. FINDINGS: BRAIN / INTRACRANIAL CONTENTS: No acute hemorrhage, mass effect, midline shift, or hydrocephalus. No appreciable acute large territorial or lacunar infarct. There appears to be mild cerebral and cerebel lar volume loss with prominent sulcal spaces, more than anticipated for patient's age. ORBITS: No significant abnormality of visualized orbits. SINUSES / MASTOIDS: No significant abnormality of visualized sinuses and mastoid air cells. ADDITIONAL FINDINGS: None. IMPRESSION: 1. No acute intracranial abnormality on noncontrast CT of the brain. 2. There appears to be mild parenchymal volume loss which appears slightly more prominent than expect ed for patient's age. Signer Name: Valorie Thorne MD Signed: 08/25/2020 12:48 AM Workstation Name: [id number]
[2020-08-25 01:08] LABS: Mean Corpuscular HGB Conc 32 % (32-34); Platelet Count 132 K/mm3 (140-440); Red Blood Count 1.55 M/mm3 (3.65-5.03)
[2020-08-25] MEDS ORDERED: SODIUM CHLORIDE 0.9% 1000 ML 1,000 ML IV ONE (01:10)
[2020-08-25 01:14] LABS: Mean Corpuscular Volume 116 fl (84-94)
[2020-08-25 01:15] LABS: Hematocrit 17.9 % (35.5-45.6); Hemoglobin 5.7 gm/dl (11.8-15.2)
[2020-08-25 01:30] LABS: Alanine Aminotransferase 79 units/L (7-56); Albumin 2.2 g/dL (3.9-5); BUN/Creatinine Ratio 11; Blood Urea Nitrogen 9 mg/dL (9-20); Calcium 7.3 mg/dL (8.4-10.2); Hemolysis Index 0
[2020-08-25] MEDS ORDERED: SODIUM CHLORIDE 0.9% 500 ML 500 ML IV ONE ×3 (01:31→03:22)
[2020-08-25] MEDS ORDERED: OCTREOTIDE 50 MCG/1 ML INJ IV ONE (02:32)
[2020-08-25 02:51] LABS: Band Neutrophils # (Manual) 0.4 K/mm3; Basophils % (Manual) 0 % (0.0-1.8); Eosinophils % (Manual) 0 % (0.0-4.3); Macrocytosis 1+; Total Cells Counted 100
--- NOTE | 2020-08-25 02:51 | History and Physical Report ---
History of Present Illness Date of examination: 08/25/20 Date of admission: 08/25/20 Chief complaint: GI Bleed History of present illness: Patient is a 35-year-old male patient Patient seen in the ED at bedside. He has Bilateral eyes jaundiced and he admits alcohol use-but said he has quit. He reports bloody liquid stool. He presents emergency room with complaints of syncopal episode x2 today, chills, jaundice, weakness, fatigue and melena. Patient states his symptoms are worsening. Patient states his symptoms started 5 days ago and are worsening. Patient reports he was here recently and was referred to a GI doctor and when he called them out patient-he did not get help. His blood pressure was low on admission and he recieved total of 3 liters per ED record.. He denies chest pain or shortness of breath and he is on room at time of assessment. Patient appears sickly. Reviewed lab, mar, and v/s-low blood pressure improving post 3 liters of fluid and blood transfusion. ED work up Shows; INR 1.97, PLT 132, Sodium 133, potassium 4.0, C02 13, AST 206, ALT 79, serum glucose 249 CT of the head-no acute process Past History Past Medical History: other (alcohol use disorder) Past Surgical History: No surgical history Social history: smoking, alcohol abuse Family history: diabetes, hypertension Medications and Allergies Allergies Allergy/AdvReac Type Severity Reaction Status Date / Time No Known Allergies Allergy Verified 03/29/20 23:38 Home Medications Medication Instructions Recorded Confirmed Last Taken Type Famotidine [Pepcid] 40 mg PO QHS #30 tablet 04/12/20 Unknown Rx Folic Acid [Folvite] 1 mg PO QDAY #30 tablet 04/12/20 Unknown Rx Multivitamin Tab [Multiple Vitamin 1 each PO QDAY #30 tablet 04/12/20 Unknown Rx TAB (Theragran)] Thiamine [Vitamin B-1] 100 mg PO QDAY #30 tablet 04/12/20 Unknown Rx atenoloL [Tenormin] 25 mg PO QDAY #30 tablet 04/12/20 Unknown Rx Famotidine [Pepcid] 20 mg PO BID #6 tablet 08/08/20 Unknown Rx Prednisone [predniSONE 10 mg 10 mg PO .TAPER #1 tab.ds.pk 08/08/20 Unknown Rx (6-Day Pack, 21 Tabs)] diphenhydrAMINE [Benadryl CAP] 50 mg PO Q6HR #24 capsule 08/08/20 Unknown Rx Active Meds: Active Medications Octreotide Acetate 500 mcg/ (Sodium Chloride) 101 mls @ 5.05 mls/hr IV TITR JAYLON; Protocol Pantoprazole Sodium 80 mg/ (Sodium Chloride) 100 mls @ 10 mls/hr IV DIRECT JAYLON Review of Systems Constitutional: other (juandice) Ears, nose, mouth and throat: no epistaxis Cardiovascular: lightheadedness Gastrointestinal: melena, belching Genitourinary Male: no testicular pain, no testicular lump Rectal: no hemorrhoids Musculoskeletal: no neck stiffness Integumentary: no sores, no wounds Neurological: no head injury Psychiatric: anxiety, irritability, no suicidal ideation, no disorientation, no hallucinations Hematologic/Lymphatic: no lymphadenopathy Exam - Constitutional Vitals: Temp Pulse Resp BP Pulse Ox 98.9 F 126 H 17 87/45 100 08/25/20 02:35 08/25/20 02:40 08/25/20 02:40 08/25/20 02:40 08/25/20 02:40 General appearance: Present: mild distress, other (jaundice) - EENT Eyes: Present: scleral icterus (jaundice bilateral eyes) ENT: hearing intact, clear oral mucosa - Neck Neck: Present: supple, normal ROM - Respiratory Respiratory effort: normal, other (room air) Respiratory: bilateral: CTA - Cardiovascular Heart rate: 121 Heart Sounds: Present: S1 & S2. Absent: rub, click - Extremities Extremities: pulses symmetrical, No edema Peripheral Pulses: within normal limits - Abdominal General gastrointestinal: Present: soft, non-tender, non-distended, normal bowel sounds Male genitourinary: Present: normal - Rectal Rectal Exam: stool dark, stool bloody - Integumentary Integumentary: Present: clear, warm, dry - Musculoskeletal Musculoskeletal: strength equal bilaterally - Psychiatric Psychiatric: appropriate mood/affect, intact judgment & insight - Neurologic Neurologic: moves all extremities - Allied Health Allied health notes reviewed: nursing Results - Labs CBC & Chem 7: 08/25/20 00:22 08/25/20 00:22 Labs: Abnormal lab results 08/25/20 08/25/20 08/25/20 Range/Units 00:22 00:22 00:25 WBC 17.9 H (4.5-11.0) K/mm3 RBC 1.55 L (3.65-5.03) M/mm3 Hgb 5.7 L* (11.8-15.2) gm/dl Hct 17.9 L* (35.5-45.6) % MCV 116 H (84-94) fl MCH 37 H (28-32) pg RDW 19.0 H (13.2-15.2) % Plt Count 132 L (140-440) K/mm3 Sodium 133 L (137-145) mmol/L Carbon Dioxide 13 L (22-30) mmol/L Glucose 249 H (75-100) mg/dL Calcium 7.3 L (8.4-10.2) mg/dL Total Bilirubin 7.20 H (0.1-1.2) mg/dL AST 206 H (5-40) units/L ALT 79 H (7-56) units/L Alkaline Phosphatase 289 H (35-129) units/L Total Protein 4.2 L (6.3-8.2) g/dL Albumin 2.2 L (3.9-5) g/dL Crossmatch See Detail Assessment and Plan - Patient Problems (1) GI bleed Current Visit: No Status: Acute Qualifiers: GI bleed type/associated pathology: melena Qualified Code(s): K92.1 - Melena Plan to address problem: GI consult-f/u with recommendation Blood trasfusion times 2 units CBC inbetween transfusion Monitor H/h Protonix and octreotide gtt (2) Abnormal LFTs (liver function tests) Current Visit: No Status: Acute Plan to address problem: 2/2 to alcohol use disorder Moniotr liver function Discussed alcohol use cessation (3) Alcoholic hepatitis Current Visit: No Status: Acute Qualifiers: Ascites presence: without ascites Qualified Code(s): K70.10 - Alcoholic hepatitis without ascites Plan to address problem: discussed alcohol cessation Gi Consulted (4) Anemia Current Visit: No Status: Acute Qualifiers: Anemia type: unspecified type Qualified Code(s): D64.9 - Anemia, unspecified Plan to address problem: Transfuse PRBCs times 2 Moniotr H/H F/U GI recommendation (5) Elevated INR Current Visit: Yes Status: Acute Plan to address problem: INR 1.9 GI recommend to transfuse FFP if INR > 1.5 Transfuse 1 unit of FFP Monitor PT/INR (6) Hypotension Current Visit: Yes Status: Acute Plan to address problem: likely 2/2 to dehydration Pt given 3liters of fluid in ED 2 units PRBCs and 1 unit FFP ordered Moniotor BP level (7) DVT prophylaxis Current Visit: Yes Status: Acute Plan to address problem: scd
[2020-08-25 02:52] LABS: Ovalocytes Rare; Tear Drop Cells Rare
[2020-08-25 02:53] LABS: Anisocytosis Few; Platelet Estimate Consistent w Auto
[2020-08-25] MEDS: PANTOPRAZOLE 80 MG in SODIUM CHLORIDE 0.9% 100 ML IV SCH ×2 (02:57→21:23)
[2020-08-25] MEDS: OCTREOTIDE 500 MCG in SODIUM CHLORIDE 0.9% 100 ML IV SCH ×2 (02:57→21:22)
[2020-08-25 03:03] LABS: INR 1.97 (0.87-1.13)
[2020-08-25 03:15] LABS: Partial Thromboplastin Time 132.3 Sec. (24.2-36.6)
[2020-08-25] MEDS ORDERED: SODIUM CHLORIDE 0.9% 500 ML 500 ML ONE (07:38)
[2020-08-25] MEDS ORDERED: SODIUM CHLORIDE 0.9% 1000 ML 1,000 ML ONE (10:23)
[2020-08-25 10:39] LABS: Hematocrit 20.3 % (35.5-45.6); Mean Corpuscular HGB Conc 35 % (32-34); Mean Corpuscular Volume 97 fl (84-94)
[2020-08-25] MEDS: FERROUS SULFATE 325 MG TAB PO SCH ×2 (10:43→22:21)
[2020-08-25] MEDS: MULTIVITAMINS ,THERAPEUTIC TAB PO SCH (10:44)
[2020-08-25] MEDS: FOLIC ACID 1 MG TAB PO SCH (10:44)
[2020-08-25 10:48] LABS: Platelet Count 81 K/mm3 (140-440); Red Cell Distribution Width 21.8 % (13.2-15.2)
[2020-08-25 10:54] LABS: BUN/Creatinine Ratio 10; Blood Urea Nitrogen 10 mg/dL (9-20); Calcium 6.3 mg/dL (8.4-10.2); Hemolysis Index 0
[2020-08-25 11:35] LABS: Eosinophils % (Auto) 0.1 % (0.0-4.3); Monocytes # (Auto) 1.3 K/mm3 (0.0-0.8); Monocytes % (Auto) 9.3 % (0.0-7.3)
[2020-08-25 11:36] LABS: Basophils % (Auto) 0.2 % (0.0-1.8); Lymphocytes # (Auto) 2.8 K/mm3 (1.2-5.4); Lymphocytes % (Auto) 19.1 % (13.4-35.0)
--- NOTE | 2020-08-25 11:38 | Progress Note ---
Assessment and Plan Assessment and plan: GI bleed GI consult-f/u with recommendation Blood trasfusion times 2 units CBC inbetween transfusion Monitor H/h Protonix and octreotide gtt Abnormal LFTs (liver function tests) 2/2 to alcohol use disorder Moniotr liver function Discussed alcohol use cessation Alcoholic hepatitis discussed alcohol cessation Gi Consulted Anemia Transfuse PRBCs Moniotr H/H F/U GI recommendation Coagulopathy/elevated INR Etiology secondary to likely alcoholic liver disease/liver cirrhosis. INR 1.9 s/p 1 unit FFP vitamin k x 1 Monitor PT/INR Hypovolemia likely 2/2 to dehydration Pt given 3 liters of fluid in ED 2 units PRBCs and 1 unit FFP ordered Moniotor BP level DVT prophylaxis scd History Interval history: Pt with rectal bleeding Hospitalist Physical - Constitutional Vitals: Temp Pulse Resp BP Pulse Ox 98.8 F 112 H 28 H 108/57 100 08/25/20 07:26 08/25/20 10:30 08/25/20 10:30 08/25/20 10:30 08/25/20 10:30 General appearance: Present: mild distress, other (jaundice) - EENT Eyes: Present: PERRL, EOM intact ENT: hearing intact, clear oral mucosa, dentition normal - Neck Neck: Present: supple, normal ROM - Respiratory Respiratory effort: normal Respiratory: bilateral: CTA - Cardiovascular Rhythm: regular Heart Sounds: Present: S1 & S2. Absent: gallop, rub - Extremities Extremities: no ischemia, No edema, Full ROM - Abdominal General gastrointestinal: soft, non-tender, non-distended, normal bowel sounds - Integumentary Integumentary: Present: clear, warm, dry - Neurologic Neurologic: CNII-XII intact, moves all extremities Results - Labs CBC & Chem 7: 08/25/20 10:09 08/25/20 10:09 Labs: Laboratory Last Values WBC 14.1 K/mm3 (4.5-11.0) H 08/25/20 10:09 RBC 2.10 M/mm3 (3.65-5.03) L 08/25/20 10:09 Hgb 7.0 gm/dl (11.8-15.2) L 08/25/20 10:09 Hct 20.3 % (35.5-45.6) L 08/25/20 10:09 MCV 97 fl (84-94) H 08/25/20 10:09 MCH 33 pg (28-32) H 08/25/20 10:09 MCHC 35 % (32-34) H 08/25/20 10:09 RDW 21.8 % (13.2-15.2) H 08/25/20 10:09 Plt Count 81 K/mm3 (140-440) L 08/25/20 10:09 Lymph % (Auto) Forming Tube Selector 08/25/20 10:09 Lymph # (Auto) Forming Tube Selector 08/25/20 10:09 Add Manual Diff Complete 08/25/20 00:22 Total Counted 100 08/25/20 00:22 Seg Neuts % (Manual) 85.0 % (40.0-70.0) H 08/25/20 00:22 Band Neutrophils % 2.0 % 08/25/20 00:22 Lymphocytes % (Manual) 11.0 % (13.4-35.0) L 08/25/20 00:22 Reactive Lymphs % (Man) 0 % 08/25/20 00:22 Monocytes % (Manual) 2.0 % (0.0-7.3) 08/25/20 00:22 Eosinophils % (Manual) 0 % (0.0-4.3) 08/25/20 00:22 Basophils % (Manual) 0 % (0.0-1.8) 08/25/20 00:22 Metamyelocytes % 0 % 08/25/20 00:22 Myelocytes % 0 % 08/25/20 00:22 Promyelocytes % 0 % 08/25/20 00:22 Blast Cells % 0 % 08/25/20 00:22 Nucleated RBC % Not Reportable 08/25/20 00:22 Seg Neutrophils # Man 15.2 K/mm3 (1.8-7.7) H 08/25/20 00:22 Band Neutrophils # 0.4 K/mm3 08/25/20 00:22 Lymphocytes # (Manual) 2.0 K/mm3 (1.2-5.4) 08/25/20 00:22 Abs React Lymphs (Man) 0.0 K/mm3 08/25/20 00:22 Monocytes # (Manual) 0.4 K/mm3 (0.0-0.8) 08/25/20 00:22 Eosinophils # (Manual) 0.0 K/mm3 (0.0-0.4) 08/25/20 00:22 Basophils # (Manual) 0.0 K/mm3 (0.0-0.1) 08/25/20 00:22 Metamyelocytes # 0.0 K/mm3 08/25/20 00:22 Myelocytes # 0.0 K/mm3 08/25/20 00:22 Promyelocytes # 0.0 K/mm3 08/25/20 00:22 Blast Cells # 0.0 K/mm3 08/25/20 00:22 WBC Morphology Not Reportable 08/25/20 00:22 Hypersegmented Neuts Not Reportable 08/25/20 00:22 Hyposegmented Neuts Not Reportable 08/25/20 00:22 Hypogranular Neuts Not Reportable 08/25/20 00:22 Smudge Cells Not Reportable 08/25/20 00:22 Toxic Granulation Not Reportable 08/25/20 00:22 Toxic Vacuolation Not Reportable 08/25/20 00:22 Dohle Bodies Not Reportable 08/25/20 00:22 Pelger-Huet Anomaly Not Reportable 08/25/20 00:22 Farzad Rods Not Reportable 08/25/20 00:22 Platelet Estimate Consistent w auto 08/25/20 00:22 Clumped Platelets Not Reportable 08/25/20 00:22 Plt Clumps, EDTA Not Reportable 08/25/20 00:22 Large Platelets Not Reportable 08/25/20 00:22 Giant Platelets Not Reportable 08/25/20 00:22 Platelet Satelliting Not Reportable 08/25/20 00:22 Plt Morphology Comment Not Reportable 08/25/20 00:22 RBC Morphology Not Reportable 08/25/20 00:22 Dimorphic RBCs Not Reportable 08/25/20 00:22 Polychromasia Rare 08/25/20 00:22 Hypochromasia Not Reportable 08/25/20 00:22 Poikilocytosis Not Reportable 08/25/20 00:22 Anisocytosis Few 08/25/20 00:22 Microcytosis Not Reportable 08/25/20 00:22 Macrocytosis 1+ 08/25/20 00:22 Spherocytes Not Reportable 08/25/20 00:22 Pappenheimer Bodies Not Reportable 08/25/20 00:22 Sickle Cells Not Reportable 08/25/20 00:22 Target Cells Not Reportable 08/25/20 00:22 Tear Drop Cells Rare 08/25/20 00:22 Ovalocytes Rare 08/25/20 00:22 Helmet Cells Not Reportable 08/25/20 00:22 Singh-[place] Bodies Not Reportable 08/25/20 00:22 [place] Rings Not Reportable 08/25/20 00:22 Register Cells Not Reportable 08/25/20 00:22 Bite Cells Not Reportable 08/25/20 00:22 Crenated Cell Not Reportable 08/25/20 00:22 Elliptocytes Not Reportable 08/25/20 00:22 Acanthocytes (Spur) Not Reportable 08/25/20 00:22 Rouleaux Not Reportable 08/25/20 00:22 Hemoglobin C Crystals Not Reportable 08/25/20 00:22 Schistocytes Not Reportable 08/25/20 00:22 Malaria parasites Not Reportable 08/25/20 00:22 Ortiz Bodies Not Reportable 08/25/20 00:22 Hem Pathologist Commnt No 08/25/20 00:22 PT 22.5 Sec. (12.2-14.9) H 08/25/20 02:36 INR 1.97 (0.87-1.13) H 08/25/20 02:36 APTT 132.3 Sec. (24.2-36.6) H* 08/25/20 02:36 Sodium 137 mmol/L (137-145) 08/25/20 10:09 Potassium 4.5 mmol/L (3.6-5.0) 08/25/20 10:09 Chloride 108.0 mmol/L (98-107) H 08/25/20 10:09 Carbon Dioxide 21 mmol/L (22-30) L D 08/25/20 10:09 Anion Gap 13 mmol/L 08/25/20 10:09 BUN 10 mg/dL (9-20) 08/25/20 10:09 Creatinine 1.0 mg/dL (0.8-1.3) 08/25/20 10:09 Estimated GFR > 60 ml/min 08/25/20 10:09 BUN/Creatinine Ratio 10 % 08/25/20 10:09 Glucose 171 mg/dL (75-100) H 08/25/20 10:09 Calcium 6.3 mg/dL (8.4-10.2) L 08/25/20 10:09 Total Bilirubin 7.20 mg/dL (0.1-1.2) H 08/25/20 00:22 AST 206 units/L (5-40) H 08/25/20 00:22 ALT 79 units/L (7-56) H 08/25/20 00:22 Alkaline Phosphatase 289 units/L (35-129) H 08/25/20 00:22 Ammonia 40.0 umol/L (25-60) 08/25/20 02:28 Total Protein 4.2 g/dL (6.3-8.2) L 08/25/20 00:22 Albumin 2.2 g/dL (3.9-5) L 08/25/20 00:22 Albumin/Globulin Ratio 1.1 % 08/25/20 00:22 Blood Type A POSITIVE 08/25/20 00:25 Antibody Screen Negative 08/25/20 00:25 Crossmatch See Detail 08/25/20 00:25 Pelayo/IV: IV Catheter Type [right hand] Peripheral IV IV Catheter Type [right wrist] Peripheral IV Active Medications - Current Medications Current Medications: Generic Name Dose Route Start Last Admin Trade Name Dmitry PRN Reason Stop Dose Admin Ferrous Sulfate 325 mg 08/25/20 10:00 08/25/20 10:43 Feosol PO 325 mg BID JAYLON Administration Folic Acid 1 mg 08/25/20 10:00 08/25/20 10:44 Folvite PO 1 mg QDAY JAYLON Administration Octreotide Acetate 500 mcg/ 101 mls @ 5.05 mls/hr 08/25/20 03:00 08/25/20 02:57 Sodium Chloride IV 25 mcg/hr TITR JAYLON 5.05 mls/hr Administration Protocol 25 MCG/HR Pantoprazole Sodium 80 mg/ 100 mls @ 10 mls/hr 08/25/20 03:00 08/25/20 02:57 Sodium Chloride IV 8 mg/hr DIRECT JAYLON 10 mls/hr Administration 8 MG/HR Multivitamins 1 each 08/25/20 10:00 08/25/20 10:44 Theragran Tab PO 1 each QDAY JAYLON Administration
[2020-08-25] MEDS ORDERED: PHYTONADIONE(ADULT ONLY) 10 MG in SODIUM CHLORIDE 0.9% 50 ML IV ONE (12:00)
--- NOTE | 2020-08-25 17:21 | Consultation ---
History of Present Illness Consult date: 08/25/20 Requesting physician: YANCY ARIAS Past History Past Medical History: other (alcohol use disorder) Past Surgical History: No surgical history Social history: smoking, alcohol abuse Family history: diabetes, hypertension Medications and Allergies Allergies Allergy/AdvReac Type Severity Reaction Status Date / Time No Known Allergies Allergy Verified 03/29/20 23:38 Home Medications Medication Instructions Recorded Confirmed Last Taken Type Famotidine [Pepcid] 40 mg PO QHS #30 tablet 04/12/20 Unknown Rx Folic Acid [Folvite] 1 mg PO QDAY #30 tablet 04/12/20 Unknown Rx Multivitamin Tab [Multiple Vitamin 1 each PO QDAY #30 tablet 04/12/20 Unknown Rx TAB (Theragran)] Thiamine [Vitamin B-1] 100 mg PO QDAY #30 tablet 04/12/20 Unknown Rx atenoloL [Tenormin] 25 mg PO QDAY #30 tablet 04/12/20 Unknown Rx Famotidine [Pepcid] 20 mg PO BID #6 tablet 08/08/20 Unknown Rx Prednisone [predniSONE 10 mg 10 mg PO .TAPER #1 tab.ds.pk 08/08/20 Unknown Rx (6-Day Pack, 21 Tabs)] diphenhydrAMINE [Benadryl CAP] 50 mg PO Q6HR #24 capsule 08/08/20 Unknown Rx Active Meds: Active Medications Ferrous Sulfate (Feosol) 325 mg PO BID [facility] Last Admin: 08/25/20 10:43 Dose: 325 mg Documented by: Folic Acid (Folvite) 1 mg PO QDAY JAYLON Last Admin: 08/25/20 10:44 Dose: 1 mg Documented by: Octreotide Acetate 500 mcg/ (Sodium Chloride) 101 mls @ 5.05 mls/hr IV TITR JAYLON; Protocol Last Admin: 08/25/20 02:57 Dose: 25 mcg/hr, 5.05 mls/hr Documented by: Pantoprazole Sodium 80 mg/ (Sodium Chloride) 100 mls @ 10 mls/hr IV DIRECT JAYLON Last Admin: 08/25/20 02:57 Dose: 8 mg/hr, 10 mls/hr Documented by: Multivitamins (Theragran Tab) 1 each PO QDAY JAYLON Last Admin: 08/25/20 10:44 Dose: 1 each Documented by: Physical Examination Vital signs: Vital Signs Temp Pulse Resp BP Pulse Ox 97.2 F L 138 H 22 78/46 99 08/24/20 23:33 08/24/20 23:33 08/24/20 23:33 08/24/20 23:33 08/24/20 23:33 Results - Laboratory Findings CBC and BMP: 08/25/20 10:09 08/25/20 10:09 PT/INR, D-dimer PT 22.5 Sec. (12.2-14.9) H 08/25/20 02:36 INR 1.97 (0.87-1.13) H 08/25/20 02:36 Abnormal lab findings: Abnormal Labs 08/25/20 08/25/20 08/25/20 00:22 00:22 00:25 WBC 17.9 H RBC 1.55 L Hgb 5.7 L* Hct 17.9 L* MCV 116 H MCH 37 H MCHC RDW 19.0 H Plt Count 132 L [place] % (Auto) [place] # (Auto) Seg Neutrophils % Seg Neuts % (Manual) 85.0 H Lymphocytes % (Manual) 11.0 L Seg Neutrophils # Seg Neutrophils # Man 15.2 H PT INR APTT Sodium 133 L Chloride Carbon Dioxide 13 L Glucose 249 H Calcium 7.3 L Total Bilirubin 7.20 H AST 206 H ALT 79 H Alkaline Phosphatase 289 H Total Protein 4.2 L Albumin 2.2 L Crossmatch See Detail 08/25/20 08/25/20 08/25/20 02:36 10:09 10:09 WBC 14.1 H RBC 2.10 L Hgb 7.0 L Hct 20.3 L MCV 97 H MCH 33 H MCHC 35 H RDW 21.8 H Plt Count 81 L [place] % (Auto) 9.3 H [place] # (Auto) 1.3 H Seg Neutrophils % 71.3 H Seg Neuts % (Manual) Lymphocytes % (Manual) Seg Neutrophils # 10.3 H Seg Neutrophils # Man PT 22.5 H INR 1.97 H APTT 132.3 H* Sodium Chloride 108.0 H Carbon Dioxide 21 L D Glucose 171 H Calcium 6.3 L Total Bilirubin AST ALT Alkaline Phosphatase Total Protein Albumin Crossmatch
[2020-08-25] MEDS ORDERED: MORPHINE 2 MG/1 ML INJ IV ONE (23:50)
[2020-08-26] MEDS: PANTOPRAZOLE 80 MG in SODIUM CHLORIDE 0.9% 100 ML IV SCH (05:03)
[2020-08-26] MEDS: FERROUS SULFATE 325 MG TAB PO SCH ×2 (10:00→22:40)
[2020-08-26] MEDS: MULTIVITAMINS ,THERAPEUTIC TAB PO SCH (10:00)
[2020-08-26] MEDS: FOLIC ACID 1 MG TAB PO SCH (10:00)
[2020-08-26] MEDS ORDERED: SODIUM CHLORIDE 0.9% 500 ML 500 ML IV NR (10:21)
[2020-08-26] MEDS ORDERED: SODIUM CHLORIDE 0.9% 500 ML 500 ML IV ONE (10:23)
--- NOTE | 2020-08-26 10:25 | Progress Note ---
Assessment and Plan Assessment and plan: GI bleed GI consult-f/u with recommendation Blood trasfusion times 2 units CBC inbetween transfusion Monitor H/h Protonix and octreotide gtt Abnormal LFTs (liver function tests) 2/2 to alcohol use disorder Moniotr liver function Discussed alcohol use cessation EtOH abuse [facility] protocol alcoholic hepatitis discussed alcohol cessation Gi Consulted Anemia Transfuse PRBCs Moniotr H/H F/U GI recommendation Coagulopathy/elevated INR Etiology secondary to likely alcoholic liver disease/liver cirrhosis. INR 1.9 s/p 1 unit FFP vitamin k x 1 Monitor PT/INR Hypovolemia likely 2/2 to dehydration Pt given 3 liters of fluid in ED 2 units PRBCs and 1 unit FFP ordered Moniotor BP level DVT prophylaxis scd 08/26/2020. Continue octreotide and Protonix drip. Await GI consultation. [facility] protocol. Check CBC and INR. Transfuse FFP and PRBCs as needed. History Interval history: Pt with rectal bleeding Hospitalist Physical - Constitutional Vitals: Temp Pulse Resp BP Pulse Ox 98.5 F 119 H 18 98/51 100 08/26/20 08:31 08/26/20 08:31 08/26/20 08:31 08/26/20 08:31 08/26/20 08:31 General appearance: Present: mild distress, other (jaundice) - EENT Eyes: Present: PERRL, EOM intact ENT: hearing intact, clear oral mucosa, dentition normal - Neck Neck: Present: supple, normal ROM - Respiratory Respiratory effort: normal Respiratory: bilateral: CTA - Cardiovascular Rhythm: regular Heart Sounds: Present: S1 & S2. Absent: gallop, rub - Extremities Extremities: no ischemia, No edema, Full ROM - Abdominal General gastrointestinal: soft, non-tender, non-distended, normal bowel sounds - Integumentary Integumentary: Present: clear, warm, dry - Neurologic Neurologic: CNII-XII intact, moves all extremities Results - Labs CBC & Chem 7: 08/25/20 10:09 08/25/20 10:09 Labs: Laboratory Last Values WBC 14.1 K/mm3 (4.5-11.0) H 08/25/20 10:09 RBC 2.10 M/mm3 (3.65-5.03) L 08/25/20 10:09 Hgb 7.0 gm/dl (11.8-15.2) L 08/25/20 10:09 Hct 20.3 % (35.5-45.6) L 08/25/20 10:09 MCV 97 fl (84-94) H 08/25/20 10:09 MCH 33 pg (28-32) H 08/25/20 10:09 MCHC 35 % (32-34) H 08/25/20 10:09 RDW 21.8 % (13.2-15.2) H 08/25/20 10:09 Plt Count 81 K/mm3 (140-440) L 08/25/20 10:09 Lymph % (Auto) 19.1 % (13.4-35.0) 08/25/20 10:09 [place] % (Auto) 9.3 % (0.0-7.3) H 08/25/20 10:09 Eos % (Auto) 0.1 % (0.0-4.3) 08/25/20 10:09 Baso % (Auto) 0.2 % (0.0-1.8) 08/25/20 10:09 Lymph # (Auto) 2.8 K/mm3 (1.2-5.4) 08/25/20 10:09 [place] # (Auto) 1.3 K/mm3 (0.0-0.8) H 08/25/20 10:09 Eos # (Auto) 0.0 K/mm3 (0.0-0.4) 08/25/20 10:09 Baso # (Auto) 0.0 K/mm3 (0.0-0.1) 08/25/20 10:09 Add Manual Diff Complete 08/25/20 10:09 Total Counted 100 08/25/20 00:22 Seg Neutrophils % 71.3 % (40.0-70.0) H 08/25/20 10:09 Seg Neuts % (Manual) 85.0 % (40.0-70.0) H 08/25/20 00:22 Band Neutrophils % 2.0 % 08/25/20 00:22 Lymphocytes % (Manual) 11.0 % (13.4-35.0) L 08/25/20 00:22 Reactive Lymphs % (Man) 0 % 08/25/20 00:22 Monocytes % (Manual) 2.0 % (0.0-7.3) 08/25/20 00:22 Eosinophils % (Manual) 0 % (0.0-4.3) 08/25/20 00:22 Basophils % (Manual) 0 % (0.0-1.8) 08/25/20 00:22 Metamyelocytes % 0 % 08/25/20 00:22 Myelocytes % 0 % 08/25/20 00:22 Promyelocytes % 0 % 08/25/20 00:22 Blast Cells % 0 % 08/25/20 00:22 Nucleated RBC % Not Reportable 08/25/20 10:09 Seg Neutrophils # 10.3 K/mm3 (1.8-7.7) H 08/25/20 10:09 Seg Neutrophils # Man 15.2 K/mm3 (1.8-7.7) H 08/25/20 00:22 Band Neutrophils # 0.4 K/mm3 08/25/20 00:22 Lymphocytes # (Manual) 2.0 K/mm3 (1.2-5.4) 08/25/20 00:22 Abs React Lymphs (Man) 0.0 K/mm3 08/25/20 00:22 Monocytes # (Manual) 0.4 K/mm3 (0.0-0.8) 08/25/20 00:22 Eosinophils # (Manual) 0.0 K/mm3 (0.0-0.4) 08/25/20 00:22 Basophils # (Manual) 0.0 K/mm3 (0.0-0.1) 08/25/20 00:22 Metamyelocytes # 0.0 K/mm3 08/25/20 00:22 Myelocytes # 0.0 K/mm3 08/25/20 00:22 Promyelocytes # 0.0 K/mm3 08/25/20 00:22 Blast Cells # 0.0 K/mm3 08/25/20 00:22 WBC Morphology Not Reportable 08/25/20 10:09 Hypersegmented Neuts Not Reportable 08/25/20 10:09 Hyposegmented Neuts Not Reportable 08/25/20 10:09 Hypogranular Neuts Not Reportable 08/25/20 10:09 Smudge Cells Not Reportable 08/25/20 10:09 Toxic Granulation Not Reportable 08/25/20 10:09 Toxic Vacuolation Not Reportable 08/25/20 10:09 Dohle Bodies Not Reportable 08/25/20 10:09 Pelger-Huet Anomaly Not Reportable 08/25/20 10:09 Farzad Rods Not Reportable 08/25/20 10:09 Platelet Estimate Not Reportable 08/25/20 10:09 Clumped Platelets Not Reportable 08/25/20 10:09 Plt Clumps, EDTA Not Reportable 08/25/20 10:09 Large Platelets Not Reportable 08/25/20 10:09 Giant Platelets Not Reportable 08/25/20 10:09 Platelet Satelliting Not Reportable 08/25/20 10:09 Plt Morphology Comment Not Reportable 08/25/20 10:09 RBC Morphology Not Reportable 08/25/20 10:09 Dimorphic RBCs Not Reportable 08/25/20 10:09 Polychromasia Not Reportable 08/25/20 10:09 Hypochromasia Not Reportable 08/25/20 10:09 Poikilocytosis Not Reportable 08/25/20 10:09 Anisocytosis Not Reportable 08/25/20 10:09 Microcytosis Not Reportable 08/25/20 10:09 Macrocytosis Not Reportable 08/25/20 10:09 Spherocytes Not Reportable 08/25/20 10:09 Pappenheimer Bodies Not Reportable 08/25/20 10:09 Sickle Cells Not Reportable 08/25/20 10:09 Target Cells Not Reportable 08/25/20 10:09 Tear Drop Cells Not Reportable 08/25/20 10:09 Ovalocytes Not Reportable 08/25/20 10:09 Helmet Cells Not Reportable 08/25/20 10:09 Singh-[place] Bodies Not Reportable 08/25/20 10:09 [place] Rings Not Reportable 08/25/20 10:09 Nathen Cells Not Reportable 08/25/20 10:09 Bite Cells Not Reportable 08/25/20 10:09 Crenated Cell Not Reportable 08/25/20 10:09 Elliptocytes Not Reportable 08/25/20 10:09 Acanthocytes (Spur) Not Reportable 08/25/20 10:09 Rouleaux Not Reportable 08/25/20 10:09 Hemoglobin C Crystals Not Reportable 08/25/20 10:09 Schistocytes Not Reportable 08/25/20 10:09 Malaria parasites Not Reportable 08/25/20 10:09 Ortiz Bodies Not Reportable 08/25/20 10:09 Hem Pathologist Commnt Not Reportable 08/25/20 10:09 PT 22.5 Sec. (12.2-14.9) H 08/25/20 02:36 INR 1.97 (0.87-1.13) H 08/25/20 02:36 APTT 132.3 Sec. (24.2-36.6) H* 08/25/20 02:36 Sodium 137 mmol/L (137-145) 08/25/20 10:09 Potassium 4.5 mmol/L (3.6-5.0) 08/25/20 10:09 Chloride 108.0 mmol/L (98-107) H 08/25/20 10:09 Carbon Dioxide 21 mmol/L (22-30) L D 08/25/20 10:09 Anion Gap 13 mmol/L 08/25/20 10:09 BUN 10 mg/dL (9-20) 08/25/20 10:09 Creatinine 1.0 mg/dL (0.8-1.3) 08/25/20 10:09 Estimated GFR > 60 ml/min 08/25/20 10:09 BUN/Creatinine Ratio 10 % 08/25/20 10:09 Glucose 171 mg/dL (75-100) H 08/25/20 10:09 Calcium 6.3 mg/dL (8.4-10.2) L 08/25/20 10:09 Total Bilirubin 7.20 mg/dL (0.1-1.2) H 08/25/20 00:22 AST 206 units/L (5-40) H 08/25/20 00:22 ALT 79 units/L (7-56) H 08/25/20 00:22 Alkaline Phosphatase 289 units/L (35-129) H 08/25/20 00:22 Ammonia 40.0 umol/L (25-60) 08/25/20 02:28 Total Protein 4.2 g/dL (6.3-8.2) L 08/25/20 00:22 Albumin 2.2 g/dL (3.9-5) L 08/25/20 00:22 Albumin/Globulin Ratio 1.1 % 08/25/20 00:22 Blood Type A POSITIVE 08/25/20 00:25 Antibody Screen Negative 08/25/20 00:25 Crossmatch See Detail 08/25/20 00:25 Pelayo/IV: IV Catheter Type [right hand] Peripheral IV IV Catheter Type [right wrist] Peripheral IV Active Medications - Current Medications Current Medications: Generic Name Dose Route Start Last Admin Trade Name Wmq PRN Reason Stop Dose Admin Ferrous Sulfate 325 mg 08/25/20 10:00 08/25/20 22:21 Feosol PO 325 mg BID JAYLON Administration Folic Acid 1 mg 08/25/20 10:00 08/25/20 10:44 Folvite PO 1 mg QDAY JAYLON Administration Octreotide Acetate 500 mcg/ 101 mls @ 5.05 mls/hr 08/25/20 03:00 08/25/20 21:22 Sodium Chloride IV 25 mcg/hr TITR JAYLON 5.05 mls/hr Administration Protocol 25 MCG/HR Pantoprazole Sodium 80 mg/ 100 mls @ 10 mls/hr 08/25/20 03:00 08/26/20 05:03 Sodium Chloride IV 8 mg/hr DIRECT JAYLON 10 mls/hr Administration 8 MG/HR Multivitamins 1 each 08/25/20 10:00 08/25/20 10:44 Theragran Tab PO 1 each QDAY JAYLON Administration
[2020-08-26] MEDS ORDERED: LORazepam 2 MG/ML VIAL IV PRN ×3 (11:00)
--- NOTE | 2020-08-26 14:01 | Progress Note ---
Subjective Date of service: 08/26/20 Objective Vital Signs - 12hr 08/26/20 08/26/20 08/26/20 03:51 08:31 11:38 Temperature 99.5 F 98.5 F 98.7 F Pulse Rate 127 H 119 H 116 H Respiratory 20 18 Rate Blood Pressure 94/64 98/51 100/44 O2 Sat by Pulse 100 100 96 Oximetry CBC and BMP: 08/25/20 10:09 08/25/20 10:09 ABG, PT/INR, D-dimer: PT/INR, D-dimer PT 22.5 Sec. (12.2-14.9) H 08/25/20 02:36 INR 1.97 (0.87-1.13) H 08/25/20 02:36 Abnormal lab findings: Abnormal Labs 08/25/20 08/25/20 08/25/20 00:22 00:22 00:25 WBC 17.9 H RBC 1.55 L Hgb 5.7 L* Hct 17.9 L* MCV 116 H MCH 37 H MCHC RDW 19.0 H Plt Count 132 L [place] % (Auto) [place] # (Auto) Seg Neutrophils % Seg Neuts % (Manual) 85.0 H Lymphocytes % (Manual) 11.0 L Seg Neutrophils # Seg Neutrophils # Man 15.2 H PT INR APTT Sodium 133 L Chloride Carbon Dioxide 13 L Glucose 249 H Calcium 7.3 L Total Bilirubin 7.20 H AST 206 H ALT 79 H Alkaline Phosphatase 289 H Total Protein 4.2 L Albumin 2.2 L Crossmatch See Detail 08/25/20 08/25/20 08/25/20 02:36 10:09 10:09 WBC 14.1 H RBC 2.10 L Hgb 7.0 L Hct 20.3 L MCV 97 H MCH 33 H MCHC 35 H RDW 21.8 H Plt Count 81 L [place] % (Auto) 9.3 H [place] # (Auto) 1.3 H Seg Neutrophils % 71.3 H Seg Neuts % (Manual) Lymphocytes % (Manual) Seg Neutrophils # 10.3 H Seg Neutrophils # Man PT 22.5 H INR 1.97 H APTT 132.3 H* Sodium Chloride 108.0 H Carbon Dioxide 21 L D Glucose 171 H Calcium 6.3 L Total Bilirubin AST ALT Alkaline Phosphatase Total Protein Albumin Crossmatch
--- NOTE | 2020-08-26 14:46 | Anesthesia Consultation ---
Anesthesia Consult and Med Hx Date of service: 08/26/20 - Airway Anesthetic Teeth Evaluation: Good ROM Head & Neck: Adequate Mental/Hyoid Distance: Adequate Mallampati Class: Class II Intubation Access Assessment: Probably Good - Pre-Operative Health Status ASA Pre-Surgery Classification: ASA3 Proposed Anesthetic Plan: MAC - Pulmonary Hx Smoking: Yes (3-4 Cigs/day) Hx Asthma: No Hx Respiratory Symptoms: No SOB: No COPD: No Home Oxygen Therapy: No Hx Pneumonia: No Hx Sleep Apnea: No - Cardiovascular System Hx Hypertension: Yes Hx Coronary Artery Disease: No Hx Heart Attack/AMI: No Hx Angina: Yes Hx Percutaneous Transluminal Coronary Angioplasty (PTCA): No Hx Cardia Arrhythmia: No Hx Pacemaker: No Hx Internal Defibrillator: No Hx Valvular Heart Disease: No Hx Heart Murmur: No Hx Peripheral Vascular Disease: No - Central Nervous System Hx Neuromuscular Disorder: No Hx Seizures: Yes (08/24/20) CVA: No Hx Back Pain: Yes Hx Psychiatric Problems: No - Gastrointestinal Hx Ulcer: Yes Hx Gastroesophageal Reflux Disease: No - Endocrine Hx Renal Disease: No Hx End Stage Renal Disease: No Hx Cirrhosis: Yes Hx Liver Disease: Yes (Alcohol hepatitis) Hx Insulin Dependent Diabetes: No (pre-diabetic) Hx Non-Insulin Dependent Diabetes: No Hx Thyroid Disease: No Hx Hypothyroidism: No Hx Hyperthyroidism: No - Hematic Hx Anemia: Yes Hx Sickle Cell Disease: No - Other Systems Hx Alcohol Use: Yes Hx Substance Use: No Hx Cancer: No Hx Obesity: No
--- NOTE | 2020-08-26 14:47 | Anesthesia Day of Surgery ---
Anesthesia Day of Surgery - Day of Surgery Patient Examined: Yes Patient H&P Reviewed: Yes Patient is NPO: Yes
[2020-08-26] MEDS ORDERED: propofoL 200 MG/20 ML VIAL IV ONE ×3 (15:26→15:48)
[2020-08-26] MEDS ORDERED: EPINEPHrine 1 MG/10 ML SYRINGE ONE (16:12)
--- NOTE | 2020-08-26 16:48 | Post Anesthesia Evaluation ---
- Post Anesthesia Evaluation Patient Participated: Yes Airway Patent: Yes Stable Respiratory Function: Yes Nausea/Vomiting: No Temp > 96.8F: Yes Pain Manageable: Yes Adequeate Hydration: Yes Anesthesia Complications: No
--- NOTE | 2020-08-26 17:34 | Post Operative Note ---
Pre-op diagnosis: gi bleed Post-op diagnosis: same Findings: EGD: old blood stomach and proximal small bowel - noted clot w/in probable ulcer 2-3rd portion (Epi :5 cc/heater probe applied with good results) - negative varices - negative other Procedure: EGD Anesthesia: MAC Surgeon: ANGELLA CARMICHAEL Estimated blood loss: none Pathology: list Specimen disposition: to lab Condition: stable Disposition: floor
--- NOTE | 2020-08-26 18:44 | Operative Report ---
PROCEDURE: EGD with bleeding therapy. INDICATIONS: 1. Anemia. 2. Upper gastrointestinal bleed. MEDICATIONS: Propofol per MARKETING PROJECT SPECIALIST. COMPLICATIONS: None. DESCRIPTION OF PROCEDURE: The patient brought to procedure suite. The patient had the procedure discussed with him at length. All risks, complications, and benefits discussed after which the patient signed for the procedure performed. The patient was placed in left lateral decubitus position. Mouth block was placed in the patient's oral cavity. After adequate sedation with medication as above, endoscope placed in the mouth and brought to level of the second portion of duodenum. Retroflexion view performed. The patient's vital signs remained stable throughout the procedure. FINDINGS: There were no obvious varices noted along the length of the esophagus. Small hiatal hernia at GE junction at 38 cm from the gums. Esophagus otherwise appeared to be normal. There was old blood that was suctioned and removed from the stomach. No significant stigmata was noted in the stomach. It otherwise appeared normal. There was noted in the second to third portion of duodenum a clot, which was indented into an ulcer-like area. There was mild oozing noted from that area. Epinephrine 1:10,000 dilution total of 5 mL and heater probe was applied to that area with good result. No other interventions were performed. The patient otherwise tolerated the procedure well. No complications during the procedure. IMPRESSION: 1. No significant varices. 2. Benign esophagus. 3. Old blood in the stomach suctioned and removed. 4. Old blood in the proximal duodenum suctioned and removed. 5. Clot within what was felt to be an ulcer, status post bleeding therapy as noted above. 6. Negative workup. RECOMMENDATIONS: 1. Follow hematocrit and transfuse as needed. 2. PPI IV drip. 3. Okay to discontinue octreotide. 4. Clear liquid diet. 5. Watch for signs of withdrawal from alcohol. 6. We will follow up in a.m. JOB# [id number] [facility]
--- NOTE | 2020-08-26 23:22 | Consultation ---
REFERRING PHYSICIAN: Nish Waldrop MD INDICATIONS: 1. Anemia. 2. Gastrointestinal bleed. HISTORY OF PRESENT ILLNESS: The patient is a 35-year-old male being seen for possible GI bleed. The patient reports history of chronic alcohol abuse, though he reports he has stopped recently. The patient reports over recent days, he has had bloody liquid stools, which were dark. Also, reports some yellowing of his eyes. The patient subsequently came to the Emergency Room with that complaint. He was noted to be anemic, heme positive. Subsequently, admitted and GI consulted. The patient reports he has not had a GI evaluation in the past. He denies significant NSAID use. Denies any other lower or upper GI symptoms. No other specific complaints. PAST MEDICAL HISTORY: Alcohol abuse. MEDICATIONS: Reviewed and updated in chart. ALLERGIES: No known drug allergies. SOCIAL HISTORY: Reports positive alcohol, positive smoker. FAMILY HISTORY: Negative for colon cancer, IBD, or liver disease. REVIEW OF SYSTEMS: GENERAL: Reports some weakness. HEENT: No visual complaints or tinnitus. PULMONARY: No shortness of breath. No cough. No chest pain. GASTROINTESTINAL: Reports rectal bleeding. All points of 13-point review of systems otherwise negative. PHYSICAL EXAMINATION: VITAL SIGNS: Temperature of 98.5, pulse 116, respirations 18, blood pressure 105/70. GENERAL: Fairly nourished male in no acute distress. HEENT: Pupils equal, round and reactive. PULMONARY: Clear to auscultation bilaterally. CARDIOVASCULAR: Regular rhythm. Normal S1, S2. ABDOMEN: Positive bowel sounds, soft. SKIN: No obvious rashes. LABORATORY DATA: Pertinent for white count of 14.1, hemoglobin and hematocrit of 7 and 20.3 with platelet count of 81. Chem-7 within normal limits. LFTs: AST and ALT of 206 and 79 with a total bilirubin of 7.2 and ammonia of 40. ASSESSMENT: A 35-year-old male with a chronic history of alcohol abuse, now presents with anemia and signs of upper gastrointestinal bleed. Possibility of varices versus other. Of note, the patient was admitted on 08/25/2020, but GI was only consulted today. PLAN: 1. Follow hematocrit and transfuse as needed. 2. Reverse coagulopathy. I discussed with primary team. 3. N.p.o. 4. PPI IV b.i.d. and recommend octreotide at this time. 5. We will plan for EGD today with further recommendation based on the above. 6. It should be noted that the patient's labs are consistent with acute alcoholic hepatitis and would watch for signs of withdrawal. 7. We will follow. JOB# [id number] [facility]/NTS
[2020-08-27] MEDS: SODIUM CHLORIDE 0.9% 1000 ML 1,000 ML IV SCH ×3 (01:52→22:32)
--- NOTE | 2020-08-27 02:46 | Cat Scan Report ---
Examination: CT of the head without contrast Clinical information: Fall. Trauma. Comparison: CT of the head without contrast, 08/25/2020 Technical: Multiple axial CT images of the head were obtained without intravenous contrast. Sagittal and coronal reformats were obtained. All CTs at this facility utilize dose reduction techniques inc luding automated exposure control, iterative reconstruction and weight based dosing when appropriate to reduce patient radiation dose to as low as reasonable achievable. Findings: Intracranial contents: There is no CT evidence of acute intracranial hemorrhage or large territorial infarct. Mild generalized parenchymal volume loss is again noted. There is no evidence of extra-axial fluid collection. ORBITS: The bilateral orbits and globes appear normal SOFT TISSUES: No significant abnormality. SKULL: No significant abnormality. PARANASAL SINUSES / MASTOID AIR CELLS: Paranasal sinuses and mastoid air cells appear clear. Impression: 1. No CT evidence of acute intracranial process. 2. Mild generalized parenchymal atrophy. Signer Name: Daxa Alas MD Signed: 08/27/2020 2:42 AM Workstation Name: [id number]
[2020-08-27] MEDS: FERROUS SULFATE 325 MG TAB PO SCH ×2 (10:23→22:32)
[2020-08-27] MEDS: FOLIC ACID 1 MG TAB PO SCH (10:23)
[2020-08-27] MEDS: MULTIVITAMINS ,THERAPEUTIC TAB PO SCH (10:23)
--- NOTE | 2020-08-27 10:37 | Progress Note ---
Assessment and Plan Assessment and plan: GI bleed GI consult-f/u with recommendation Blood trasfusion times 2 units CBC inbetween transfusion Monitor H/h Protonix and octreotide gtt Abnormal LFTs (liver function tests) 2/2 to alcohol use disorder Moniotr liver function Discussed alcohol use cessation EtOH abuse CIWY protocol alcoholic hepatitis discussed alcohol cessation Gi Consulted Anemia Transfuse PRBCs Moniotr H/H F/U GI recommendation Coagulopathy/elevated INR Etiology secondary to likely alcoholic liver disease/liver cirrhosis. INR 1.9 s/p 1 unit FFP vitamin k x 1 Monitor PT/INR Hypovolemia likely 2/2 to dehydration Pt given 3 liters of fluid in ED 2 units PRBCs and 1 unit FFP ordered Moniotor BP level DVT prophylaxis scd 08/26/2020. Continue octreotide and Protonix drip. Await GI consultation. [facility] protocol. Check CBC and INR. Transfuse FFP and PRBCs as needed. 08/27/2020. Patient is s/p EGD which revealed old blood in stomach and proximal small bowel. A clot was noted with an probable ulcer 23rd portion s/p epi/heater probe. No evidence of varices. Octreotide discontinued. Follow-up H&H and transfuse for hemoglobin less than 7. Continue Protonix drip. Continue CIWA protocol. History Interval history: Pt with rectal bleeding Hospitalist Physical - Constitutional Vitals: Temp Pulse Resp BP Pulse Ox 100.6 F H 121 H 20 99/41 99 08/27/20 07:52 08/27/20 07:52 08/27/20 07:52 08/27/20 07:52 08/27/20 07:52 General appearance: Present: no acute distress, other (jaundice) - EENT Eyes: Present: PERRL, EOM intact ENT: hearing intact, clear oral mucosa, dentition normal - Neck Neck: Present: supple, normal ROM - Respiratory Respiratory effort: normal Respiratory: bilateral: CTA - Cardiovascular Rhythm: regular Heart Sounds: Present: S1 & S2. Absent: gallop, rub - Extremities Extremities: no ischemia, No edema, Full ROM - Abdominal General gastrointestinal: soft, non-tender, non-distended, normal bowel sounds - Integumentary Integumentary: Present: clear, warm, dry - Neurologic Neurologic: CNII-XII intact, moves all extremities Results - Labs CBC & Chem 7: 08/25/20 10:09 08/25/20 10:09 Labs: Laboratory Last Values WBC 14.1 K/mm3 (4.5-11.0) H 08/25/20 10:09 RBC 2.10 M/mm3 (3.65-5.03) L 08/25/20 10:09 Hgb 7.0 gm/dl (11.8-15.2) L 08/25/20 10:09 Hct 20.3 % (35.5-45.6) L 08/25/20 10:09 MCV 97 fl (84-94) H 08/25/20 10:09 MCH 33 pg (28-32) H 08/25/20 10:09 MCHC 35 % (32-34) H 08/25/20 10:09 RDW 21.8 % (13.2-15.2) H 08/25/20 10:09 Plt Count 81 K/mm3 (140-440) L 08/25/20 10:09 Lymph % (Auto) 19.1 % (13.4-35.0) 08/25/20 10:09 [place] % (Auto) 9.3 % (0.0-7.3) H 08/25/20 10:09 Eos % (Auto) 0.1 % (0.0-4.3) 08/25/20 10:09 Baso % (Auto) 0.2 % (0.0-1.8) 08/25/20 10:09 Lymph # (Auto) 2.8 K/mm3 (1.2-5.4) 08/25/20 10:09 [place] # (Auto) 1.3 K/mm3 (0.0-0.8) H 08/25/20 10:09 Eos # (Auto) 0.0 K/mm3 (0.0-0.4) 08/25/20 10:09 Baso # (Auto) 0.0 K/mm3 (0.0-0.1) 08/25/20 10:09 Add Manual Diff Complete 08/25/20 10:09 Total Counted 100 08/25/20 00:22 Seg Neutrophils % 71.3 % (40.0-70.0) H 08/25/20 10:09 Seg Neuts % (Manual) 85.0 % (40.0-70.0) H 08/25/20 00:22 Band Neutrophils % 2.0 % 08/25/20 00:22 Lymphocytes % (Manual) 11.0 % (13.4-35.0) L 08/25/20 00:22 Reactive Lymphs % (Man) 0 % 08/25/20 00:22 Monocytes % (Manual) 2.0 % (0.0-7.3) 08/25/20 00:22 Eosinophils % (Manual) 0 % (0.0-4.3) 08/25/20 00:22 Basophils % (Manual) 0 % (0.0-1.8) 08/25/20 00:22 Metamyelocytes % 0 % 08/25/20 00:22 Myelocytes % 0 % 08/25/20 00:22 Promyelocytes % 0 % 08/25/20 00:22 Blast Cells % 0 % 08/25/20 00:22 Nucleated RBC % Not Reportable 08/25/20 10:09 Seg Neutrophils # 10.3 K/mm3 (1.8-7.7) H 08/25/20 10:09 Seg Neutrophils # Man 15.2 K/mm3 (1.8-7.7) H 08/25/20 00:22 Band Neutrophils # 0.4 K/mm3 08/25/20 00:22 Lymphocytes # (Manual) 2.0 K/mm3 (1.2-5.4) 08/25/20 00:22 Abs React Lymphs (Man) 0.0 K/mm3 08/25/20 00:22 Monocytes # (Manual) 0.4 K/mm3 (0.0-0.8) 08/25/20 00:22 Eosinophils # (Manual) 0.0 K/mm3 (0.0-0.4) 08/25/20 00:22 Basophils # (Manual) 0.0 K/mm3 (0.0-0.1) 08/25/20 00:22 Metamyelocytes # 0.0 K/mm3 08/25/20 00:22 Myelocytes # 0.0 K/mm3 08/25/20 00:22 Promyelocytes # 0.0 K/mm3 08/25/20 00:22 Blast Cells # 0.0 K/mm3 08/25/20 00:22 WBC Morphology Not Reportable 08/25/20 10:09 Hypersegmented Neuts Not Reportable 08/25/20 10:09 Hyposegmented Neuts Not Reportable 08/25/20 10:09 Hypogranular Neuts Not Reportable 08/25/20 10:09 Smudge Cells Not Reportable 08/25/20 10:09 Toxic Granulation Not Reportable 08/25/20 10:09 Toxic Vacuolation Not Reportable 08/25/20 10:09 Dohle Bodies Not Reportable 08/25/20 10:09 Pelger-Huet Anomaly Not Reportable 08/25/20 10:09 Farzad Rods Not Reportable 08/25/20 10:09 Platelet Estimate Not Reportable 08/25/20 10:09 Clumped Platelets Not Reportable 08/25/20 10:09 Plt Clumps, EDTA Not Reportable 08/25/20 10:09 Large Platelets Not Reportable 08/25/20 10:09 Giant Platelets Not Reportable 08/25/20 10:09 Platelet Satelliting Not Reportable 08/25/20 10:09 Plt Morphology Comment Not Reportable 08/25/20 10:09 RBC Morphology Not Reportable 08/25/20 10:09 Dimorphic RBCs Not Reportable 08/25/20 10:09 Polychromasia Not Reportable 08/25/20 10:09 Hypochromasia Not Reportable 08/25/20 10:09 Poikilocytosis Not Reportable 08/25/20 10:09 Anisocytosis Not Reportable 08/25/20 10:09 Microcytosis Not Reportable 08/25/20 10:09 Macrocytosis Not Reportable 08/25/20 10:09 Spherocytes Not Reportable 08/25/20 10:09 Pappenheimer Bodies Not Reportable 08/25/20 10:09 Sickle Cells Not Reportable 08/25/20 10:09 Target Cells Not Reportable 08/25/20 10:09 Tear Drop Cells Not Reportable 08/25/20 10:09 Ovalocytes Not Reportable 08/25/20 10:09 Helmet Cells Not Reportable 08/25/20 10:09 [place] Bodies Not Reportable 08/25/20 10:09 [place] Rings Not Reportable 08/25/20 10:09 Nathen Cells Not Reportable 08/25/20 10:09 Bite Cells Not Reportable 08/25/20 10:09 Crenated Cell Not Reportable 08/25/20 10:09 Elliptocytes Not Reportable 08/25/20 10:09 Acanthocytes (Spur) Not Reportable 08/25/20 10:09 Rouleaux Not Reportable 08/25/20 10:09 Hemoglobin C Crystals Not Reportable 08/25/20 10:09 Schistocytes Not Reportable 08/25/20 10:09 Malaria parasites Not Reportable 08/25/20 10:09 Ortiz Bodies Not Reportable 08/25/20 10:09 Hem Pathologist Commnt Not Reportable 08/25/20 10:09 PT 22.5 Sec. (12.2-14.9) H 08/25/20 02:36 INR 1.97 (0.87-1.13) H 08/25/20 02:36 APTT 132.3 Sec. (24.2-36.6) H* 08/25/20 02:36 Sodium 137 mmol/L (137-145) 08/25/20 10:09 Potassium 4.5 mmol/L (3.6-5.0) 08/25/20 10:09 Chloride 108.0 mmol/L (98-107) H 08/25/20 10:09 Carbon Dioxide 21 mmol/L (22-30) L D 08/25/20 10:09 Anion Gap 13 mmol/L 08/25/20 10:09 BUN 10 mg/dL (9-20) 08/25/20 10:09 Creatinine 1.0 mg/dL (0.8-1.3) 08/25/20 10:09 Estimated GFR > 60 ml/min 08/25/20 10:09 BUN/Creatinine Ratio 10 % 08/25/20 10:09 Glucose 171 mg/dL (75-100) H 08/25/20 10:09 POC Glucose 122 mg/dL (70-105) H 08/27/20 01:26 Calcium 6.3 mg/dL (8.4-10.2) L 08/25/20 10:09 Total Bilirubin 7.20 mg/dL (0.1-1.2) H 08/25/20 00:22 AST 206 units/L (5-40) H 08/25/20 00:22 ALT 79 units/L (7-56) H 08/25/20 00:22 Alkaline Phosphatase 289 units/L (35-129) H 08/25/20 00:22 Ammonia 40.0 umol/L (25-60) 08/25/20 02:28 Total Protein 4.2 g/dL (6.3-8.2) L 08/25/20 00:22 Albumin 2.2 g/dL (3.9-5) L 08/25/20 00:22 Albumin/Globulin Ratio 1.1 % 08/25/20 00:22 Blood Type A POSITIVE 08/25/20 00:25 Antibody Screen Negative 08/25/20 00:25 Crossmatch See Detail 08/25/20 00:25 Pelayo/IV: Voiding Method Bedside Commode IV Catheter Type [Left] Peripheral IV IV Catheter Type [right hand] Peripheral IV IV Catheter Type [right wrist] Peripheral IV Active Medications - Current Medications Current Medications: Generic Name Dose Route Start Last Admin Trade Name Freq PRN Reason Stop Dose Admin Ferrous Sulfate 325 mg 08/25/20 10:00 08/27/20 10:23 Feosol PO 325 mg BID JAYLON Administration Folic Acid 1 mg 08/25/20 10:00 08/27/20 10:23 Folvite PO 1 mg QDAY JAYLON Administration Pantoprazole Sodium 80 mg/ 100 mls @ 10 mls/hr 08/25/20 03:00 08/26/20 05:03 Sodium Chloride IV 8 mg/hr DIRECT JAYLON 10 mls/hr Administration 8 MG/HR Sodium Chloride 1,000 mls @ 50 mls/hr 08/26/20 13:45 08/27/20 01:52 Nacl 0.9% 1000 Ml IV 50 mls/hr DIRECT JAYLON Administration Lorazepam 2 mg 08/26/20 11:00 08/26/20 22:57 Lorazepam 2 Mg/Ml Vial IV 2 mg Q1H PRN Administration CIWA-Ar 8-15 Lorazepam 4 mg 08/26/20 11:00 Lorazepam 2 Mg/Ml Vial IV Q1H PRN CIWA-Ar 16-25 Lorazepam 4 mg 08/26/20 11:00 Lorazepam 2 Mg/Ml Vial IV Q15MIN PRN CIWA-Ar >25 Multivitamins 1 each 08/25/20 10:00 08/27/20 10:23 Theragran Tab PO 1 each QDAY JAYLON Administration
[2020-08-27 11:17] LABS: INR 1.44 (0.87-1.13)
[2020-08-27 11:18] LABS: Mean Corpuscular HGB Conc 33 % (32-34); Mean Corpuscular Volume 109 fl (84-94); Platelet Count 114 K/mm3 (140-440); Red Blood Count 0.89 M/mm3 (3.65-5.03)
[2020-08-27 11:21] LABS: Hemoglobin 3.2 gm/dl (11.8-15.2)
[2020-08-27 11:22] LABS: Hematocrit 9.7 % (35.5-45.6); Red Cell Distribution Width 27.3 % (13.2-15.2)
[2020-08-27] MEDS ORDERED: SODIUM CHLORIDE 0.9% 500 ML 500 ML IV ONE (13:00)
[2020-08-27 13:31] LABS: Band Neutrophils # (Manual) 0.5 K/mm3; Total Cells Counted 100
[2020-08-27] MEDS: PANTOPRAZOLE 80 MG in SODIUM CHLORIDE 0.9% 100 ML IV SCH ×2 (13:31→22:53)
[2020-08-27 13:34] LABS: Anisocytosis 3+
[2020-08-27 13:35] LABS: Platelet Estimate Consistent w Auto; Target Cells Few
--- NOTE | 2020-08-27 17:19 | Progress Note ---
Assessment and Plan 1. UGI bleed - likely duodenal ulcer with clot, treated with Heater probe and Epi injection. Pt had Hgb down to 3.2 this AM, and has been given blood. Hemodynamically stable. No evidence of severe ongoing bleed. - continue PPI drip - monitor H/H and transfuse as needed - if acute rebleed, IR evaluation Subjective Date of service: 08/27/20 Interval history: Pt denies complaints. States he had no BM, but RN relates that pt had melena today on cleaning him up x 1. History disjointed, but o/w seems oriented. RN states he is confused at times. Objective - Constitutional Vitals: Vital Signs - 12hr 08/27/20 08/27/20 08/27/20 07:47 07:52 10:00 Temperature 100.6 F H 100.6 F H Pulse Rate 136 H 121 H 127 H Respiratory 20 20 Rate Blood Pressure 86/30 99/41 O2 Sat by Pulse 100 99 Oximetry 08/27/20 08/27/20 08/27/20 11:26 12:00 12:04 Temperature 99.4 F Pulse Rate 114 H 109 H 114 H Respiratory 16 17 Rate Blood Pressure 99/48 101/52 101/52 O2 Sat by Pulse 96 100 100 Oximetry 08/27/20 08/27/20 08/27/20 12:15 12:16 12:45 Temperature 98.6 F 98.6 F Pulse Rate 104 H 104 H 112 H Respiratory 17 17 17 Rate Blood Pressure 102/52 102/52 86/46 O2 Sat by Pulse 100 100 100 Oximetry 08/27/20 08/27/20 08/27/20 12:50 13:15 13:45 Temperature 96.5 F L 98.6 F Pulse Rate 109 H 105 H 103 H Respiratory 17 17 17 Rate Blood Pressure 86/46 97/52 104/53 O2 Sat by Pulse 100 Oximetry 08/27/20 08/27/20 08/27/20 14:00 14:27 14:30 Temperature 98.6 F 98.1 F 98 F Pulse Rate 100 H 96 H 98 H Respiratory 17 16 17 Rate Blood Pressure 101/60 105/58 104/50 O2 Sat by Pulse 100 100 100 Oximetry 08/27/20 15:30 Temperature Pulse Rate 97 H Respiratory 16 Rate Blood Pressure 108/63 O2 Sat by Pulse 100 Oximetry General appearance: Present: no acute distress - EENT Eyes: PERRL, EOM intact ENT: hearing intact - Respiratory Respiratory effort: normal - Gastrointestinal General gastrointestinal: Present: soft, non-tender - Labs CBC & Chem 7: 08/27/20 10:39 08/25/20 10:09 Labs: Abnormal lab results 08/25/20 08/27/20 08/27/20 Range/Units 00:25 01:26 10:39 RBC 0.89 L (3.65-5.03) M/mm3 Hgb 3.2 L* D (11.8-15.2) gm/dl Hct 9.7 L* D (35.5-45.6) % MCV 109 H (84-94) fl MCH 36 H (28-32) pg RDW 27.3 H (13.2-15.2) % Plt Count 114 L (140-440) K/mm3 Seg Neuts % (Manual) 71.0 H (40.0-70.0) % Nucleated RBC % 11.0 H (0.0-0.9) % Seg Neutrophils # Man 8.4 H (1.8-7.7) K/mm3 PT (12.2-14.9) Sec. INR (0.87-1.13) POC Glucose 122 H (70-105) mg/dL Crossmatch See Detail 08/27/20 Range/Units 10:39 RBC (3.65-5.03) M/mm3 Hgb (11.8-15.2) gm/dl Hct (35.5-45.6) % MCV (84-94) fl MCH (28-32) pg RDW (13.2-15.2) % Plt Count (140-440) K/mm3 Seg Neuts % (Manual) (40.0-70.0) % Nucleated RBC % (0.0-0.9) % Seg Neutrophils # Man (1.8-7.7) K/mm3 PT 17.4 H (12.2-14.9) Sec. INR 1.44 H (0.87-1.13) POC Glucose (70-105) mg/dL Crossmatch Medications & Allergies - Medications Allergies/Adverse Reactions: Allergies No Known Allergies Allergy (Verified 03/29/20 23:38) Home Medications: Home Medications Medication Instructions Recorded Confirmed Last Taken Type Folic Acid [Folvite] 1 mg PO QDAY #30 tablet 04/12/20 08/25/20 Unknown Rx Multivitamin Tab [Multiple Vitamin 1 each PO QDAY #30 tablet 04/12/20 08/25/20 Unknown Rx TAB (Theragran)] Thiamine [Vitamin B-1] 100 mg PO QDAY #30 tablet 04/12/20 08/25/20 Unknown Rx atenoloL [Tenormin] 25 mg PO QDAY #30 tablet 04/12/20 08/25/20 Unknown Rx Famotidine [Pepcid] 20 mg PO BID #6 tablet 08/08/20 08/25/20 Unknown Rx diphenhydrAMINE [Benadryl CAP] 50 mg PO Q6HR #24 capsule 08/08/20 08/25/20 Unknown Rx Active Medications: Generic Name Dose Route Start Last Admin Trade Name Freq PRN Reason Stop Dose Admin Ferrous Sulfate 325 mg 08/25/20 10:00 08/27/20 10:23 Feosol PO 325 mg BID JAYLON Administration Folic Acid 1 mg 08/25/20 10:00 08/27/20 10:23 Folvite PO 1 mg QDAY JAYLON Administration Pantoprazole Sodium 80 mg/ 100 mls @ 10 mls/hr 08/25/20 03:00 08/27/20 13:31 Sodium Chloride IV 8 mg/hr DIRECT JAYLON 10 mls/hr Administration 8 MG/HR Sodium Chloride 1,000 mls @ 50 mls/hr 08/26/20 13:45 08/27/20 01:52 Nacl 0.9% 1000 Ml IV 50 mls/hr DIRECT JAYLON Administration Lorazepam 2 mg 08/26/20 11:00 08/26/20 22:57 Lorazepam 2 Mg/Ml Vial IV 2 mg Q1H PRN Administration CIWA-Ar 8-15 Lorazepam 4 mg 08/26/20 11:00 Lorazepam 2 Mg/Ml Vial IV Q1H PRN CIWA-Ar 16-25 Lorazepam 4 mg 08/26/20 11:00 Lorazepam 2 Mg/Ml Vial IV Q15MIN PRN CIWA-Ar >25 Multivitamins 1 each 08/25/20 10:00 08/27/20 10:23 Theragran Tab PO 1 each QDAY JAYLON Administration
[2020-08-27 17:51] LABS: Hemoglobin 6.7 gm/dl (11.8-15.2); Mean Corpuscular HGB Conc 34 % (32-34); Mean Corpuscular Volume 103 fl (84-94); Platelet Count 100 K/mm3 (140-440); Red Blood Count 1.91 M/mm3 (3.65-5.03); Red Cell Distribution Width 16.8 % (13.2-15.2)
[2020-08-27 17:55] LABS: Hematocrit 19.7 % (35.5-45.6)
[2020-08-27 18:49] LABS: Anisocytosis 3+; Total Cells Counted 100
[2020-08-27 18:50] LABS: Target Cells Few
--- NOTE | 2020-08-27 21:59 | Progress Note ---
Assessment and Plan - Patient Problems (1) Hypotension Current Visit: Yes Status: Acute (2) Alcoholic hepatitis Current Visit: No Status: Acute Qualifiers: Ascites presence: without ascites Qualified Code(s): K70.10 - Alcoholic hepatitis without ascites (3) GI bleed Current Visit: No Status: Acute Qualifiers: GI bleed type/associated pathology: melena Qualified Code(s): K92.1 - Melena (4) History of alcohol abuse Current Visit: No Status: Acute Subjective Date of service: 08/27/20 Interval history: Not seen the patient to day. Objective Vital Signs - 12hr 08/27/20 08/27/20 08/27/20 10:00 11:26 12:00 Temperature 99.4 F Pulse Rate 127 H 114 H 109 H Respiratory 16 17 Rate Blood Pressure 99/48 101/52 Blood Pressure [Left] O2 Sat by Pulse 96 100 Oximetry 08/27/20 08/27/20 08/27/20 12:04 12:15 12:16 Temperature 98.6 F Pulse Rate 114 H 104 H 104 H Respiratory 17 17 Rate Blood Pressure 101/52 102/52 102/52 Blood Pressure [Left] O2 Sat by Pulse 100 100 100 Oximetry 08/27/20 08/27/20 08/27/20 12:45 12:50 13:15 Temperature 98.6 F 96.5 F L Pulse Rate 112 H 109 H 105 H Respiratory 17 17 17 Rate Blood Pressure 86/46 86/46 97/52 Blood Pressure [Left] O2 Sat by Pulse 100 100 Oximetry 08/27/20 08/27/20 08/27/20 13:18 13:45 13:47 Temperature 98.6 F Pulse Rate 107 H 103 H 102 H Respiratory 17 17 17 Rate Blood Pressure 97/52 104/53 104/53 Blood Pressure [Left] O2 Sat by Pulse 100 100 Oximetry 08/27/20 08/27/20 08/27/20 14:00 14:02 14:25 Temperature 98.6 F Pulse Rate 100 H 104 H 95 H Respiratory 17 17 Rate Blood Pressure 101/60 101/60 Blood Pressure [Left] O2 Sat by Pulse 100 100 100 Oximetry 08/27/20 08/27/20 08/27/20 14:27 14:30 15:30 Temperature 98.1 F 98 F Pulse Rate 96 H 98 H 97 H Respiratory 16 17 16 Rate Blood Pressure 105/58 104/50 108/63 Blood Pressure [Left] O2 Sat by Pulse 100 100 100 Oximetry 08/27/20 08/27/20 08/27/20 15:40 16:10 18:44 Temperature Pulse Rate 92 H 97 H Respiratory 17 17 Rate Blood Pressure 102/49 102/60 102/49 Blood Pressure [Left] O2 Sat by Pulse 100 100 Oximetry 08/27/20 08/27/20 08/27/20 18:45 19:19 19:42 Temperature 98.2 F 98.2 F Pulse Rate 92 H 92 H 92 H Respiratory 17 20 16 Rate Blood Pressure 102/49 92/47 97/47 Blood Pressure [Left] O2 Sat by Pulse 99 99 100 Oximetry 08/27/20 08/27/20 08/27/20 20:00 20:15 20:17 Temperature 98.9 F 98.6 F 98.6 F Pulse Rate 82 83 84 Respiratory 18 18 18 Rate Blood Pressure 106/68 96/59 Blood Pressure 96/59 [Left] O2 Sat by Pulse 100 100 100 Oximetry 08/27/20 08/27/20 08/27/20 20:30 21:07 21:30 Temperature 98.4 F 98.6 F Pulse Rate 85 85 82 Respiratory 18 20 Rate Blood Pressure 100/55 99/65 Blood Pressure 96/60 [Left] O2 Sat by Pulse 100 100 100 Oximetry 08/27/20 21:53 Temperature 98.6 F Pulse Rate 83 Respiratory 20 Rate Blood Pressure 104/65 Blood Pressure [Left] O2 Sat by Pulse 100 Oximetry CBC and BMP: 08/28/20 16:19 08/25/20 10:09 ABG, PT/INR, D-dimer: PT/INR, D-dimer PT 17.4 Sec. (12.2-14.9) H 08/27/20 10:39 INR 1.44 (0.87-1.13) H 08/27/20 10:39 Abnormal lab findings: Abnormal Labs 08/25/20 08/25/20 08/25/20 00:22 00:22 00:25 WBC 17.9 H RBC 1.55 L Hgb 5.7 L* Hct 17.9 L* MCV 116 H MCH 37 H MCHC RDW 19.0 H Plt Count 132 L [place] % (Auto) [place] # (Auto) Seg Neutrophils % Seg Neuts % (Manual) 85.0 H Lymphocytes % (Manual) 11.0 L Monocytes % (Manual) Nucleated RBC % Seg Neutrophils # Seg Neutrophils # Man 15.2 H Monocytes # (Manual) PT INR APTT Sodium 133 L Chloride Carbon Dioxide 13 L Glucose 249 H POC Glucose Calcium 7.3 L Total Bilirubin 7.20 H AST 206 H ALT 79 H Alkaline Phosphatase 289 H Total Protein 4.2 L Albumin 2.2 L Crossmatch See Detail 08/25/20 08/25/20 08/25/20 02:36 10:09 10:09 WBC 14.1 H RBC 2.10 L Hgb 7.0 L Hct 20.3 L MCV 97 H MCH 33 H MCHC 35 H RDW 21.8 H Plt Count 81 L [place] % (Auto) 9.3 H [place] # (Auto) 1.3 H Seg Neutrophils % 71.3 H Seg Neuts % (Manual) Lymphocytes % (Manual) Monocytes % (Manual) Nucleated RBC % Seg Neutrophils # 10.3 H Seg Neutrophils # Man Monocytes # (Manual) PT 22.5 H INR 1.97 H APTT 132.3 H* Sodium Chloride 108.0 H Carbon Dioxide 21 L D Glucose 171 H POC Glucose Calcium 6.3 L Total Bilirubin AST ALT Alkaline Phosphatase Total Protein Albumin Crossmatch 08/27/20 08/27/20 08/27/20 01:26 10:39 10:39 WBC RBC 0.89 L Hgb 3.2 L* D Hct 9.7 L* D MCV 109 H MCH 36 H MCHC RDW 27.3 H Plt Count 114 L [place] % (Auto) [place] # (Auto) Seg Neutrophils % Seg Neuts % (Manual) 71.0 H Lymphocytes % (Manual) Monocytes % (Manual) Nucleated RBC % 11.0 H Seg Neutrophils # Seg Neutrophils # Man 8.4 H Monocytes # (Manual) PT 17.4 H INR 1.44 H APTT Sodium Chloride Carbon Dioxide Glucose POC Glucose 122 H Calcium Total Bilirubin AST ALT Alkaline Phosphatase Total Protein Albumin Crossmatch 08/27/20 17:31 WBC 11.7 H RBC 1.91 L Hgb 6.7 L D Hct 19.7 L* D MCV 103 H MCH 35 H MCHC RDW 16.8 H Plt Count 100 L [place] % (Auto) [place] # (Auto) Seg Neutrophils % Seg Neuts % (Manual) Lymphocytes % (Manual) Monocytes % (Manual) 15.0 H Nucleated RBC % Seg Neutrophils # Seg Neutrophils # Man Monocytes # (Manual) 1.8 H PT INR APTT Sodium Chloride Carbon Dioxide Glucose POC Glucose Calcium Total Bilirubin AST ALT Alkaline Phosphatase Total Protein Albumin Crossmatch
[2020-08-27] MEDS ORDERED: SODIUM CHLORIDE 0.9% 500 ML 500 ML IV SCH (23:00)
[2020-08-28] MEDS ORDERED: SODIUM CHLORIDE 0.9% 500 ML 500 ML IV SCH (08:00)
[2020-08-28] MEDS: MULTIVITAMINS ,THERAPEUTIC TAB PO SCH (09:39)
[2020-08-28] MEDS: FOLIC ACID 1 MG TAB PO SCH (09:39)
[2020-08-28] MEDS: FERROUS SULFATE 325 MG TAB PO SCH ×2 (09:39→21:24)
[2020-08-28] MEDS: PANTOPRAZOLE 80 MG in SODIUM CHLORIDE 0.9% 100 ML IV SCH ×2 (09:39→18:33)
--- NOTE | 2020-08-28 09:51 | Progress Note ---
Assessment and Plan Assessment and plan: GI bleed GI consult-f/u with recommendation Blood trasfusion times 2 units CBC inbetween transfusion Monitor H/h Protonix and octreotide gtt Abnormal LFTs (liver function tests) 2/2 to alcohol use disorder Moniotr liver function Discussed alcohol use cessation EtOH abuse [facility] protocol alcoholic hepatitis discussed alcohol cessation Gi Consulted Anemia Transfuse PRBCs Moniotr H/H F/U GI recommendation Coagulopathy/elevated INR Etiology secondary to likely alcoholic liver disease/liver cirrhosis. INR 1.9 s/p 1 unit FFP vitamin k x 1 Monitor PT/INR Hypovolemia likely 2/2 to dehydration Pt given 3 liters of fluid in ED 2 units PRBCs and 1 unit FFP ordered Moniotor BP level DVT prophylaxis scd 08/26/2020. Continue octreotide and Protonix drip. Await GI consultation. [facility] protocol. Check CBC and INR. Transfuse FFP and PRBCs as needed. 08/27/2020. Patient is s/p EGD which revealed old blood in stomach and proximal small bowel. A clot was noted with an probable ulcer 23rd portion s/p epi/heater probe. No evidence of varices. Octreotide discontinued. Follow-up H&H and transfuse for hemoglobin less than 7. Continue Protonix drip. Continue CIWA protocol. 08/28/2020. Patient remains anemic with hemoglobin of 6.7 after total of 6 units of PRBCs transfused. Continue with PRBCs to maintain hemoglobin greater than 7. Patient continues to have melena. Await GI decision to perform endoscopy. Continue PPI drip. History Interval history: Pt with rectal bleeding Hospitalist Physical - Constitutional Vitals: Temp Pulse Resp BP Pulse Ox 98.6 F 88 18 115/71 100 08/28/20 07:16 08/28/20 07:16 08/28/20 07:16 08/28/20 07:16 08/28/20 07:16 General appearance: Present: no acute distress - EENT Eyes: Present: PERRL, EOM intact ENT: hearing intact, clear oral mucosa, dentition normal - Neck Neck: Present: supple, normal ROM - Respiratory Respiratory effort: normal Respiratory: bilateral: CTA - Cardiovascular Rhythm: regular Heart Sounds: Present: S1 & S2. Absent: gallop, rub - Extremities Extremities: no ischemia, No edema, Full ROM - Abdominal General gastrointestinal: soft, non-tender, non-distended, normal bowel sounds - Integumentary Integumentary: Present: clear, warm, dry - Neurologic Neurologic: CNII-XII intact, moves all extremities Results - Labs CBC & Chem 7: 08/27/20 17:31 08/25/20 10:09 Labs: Laboratory Last Values WBC 11.7 K/mm3 (4.5-11.0) H 08/27/20 17:31 RBC 1.91 M/mm3 (3.65-5.03) L 08/27/20 17:31 Hgb 6.7 gm/dl (11.8-15.2) L D 08/27/20 17:31 Hct 19.7 % (35.5-45.6) L* D 08/27/20 17: MCV 103 fl (84-94) H 08/27/20 17:31 MCH 35 pg (28-32) H 08/27/20 17:31 MCHC 34 % (32-34) 08/27/20 17:31 RDW 16.8 % (13.2-15.2) H 08/27/20 17:31 Plt Count 100 K/mm3 (140-440) L 08/27/20 17:31 Lymph % (Auto) 19.1 % (13.4-35.0) 08/25/20 10:09 [place] % (Auto) 9.3 % (0.0-7.3) H 08/25/20 10:09 Eos % (Auto) 0.1 % (0.0-4.3) 08/25/20 10:09 Baso % (Auto) 0.2 % (0.0-1.8) 08/25/20 10:09 Lymph # (Auto) 2.8 K/mm3 (1.2-5.4) 08/25/20 10:09 [place] # (Auto) 1.3 K/mm3 (0.0-0.8) H 08/25/20 10:09 Eos # (Auto) 0.0 K/mm3 (0.0-0.4) 08/25/20 10:09 Baso # (Auto) 0.0 K/mm3 (0.0-0.1) 08/25/20 10:09 Add Manual Diff Complete 08/27/20 17:31 Total Counted 100 12/12/20 17:31 Seg Neutrophils % 71.3 % (40.0-70.0) H 08/25/20 10:09 Seg Neuts % (Manual) 57.0 % (40.0-70.0) 08/27/20 17:31 Band Neutrophils % 4.0 % 08/27/20 10:39 Lymphocytes % (Manual) 26.0 % (13.4-35.0) 08/27/20 17:31 Reactive Lymphs % (Man) 0 % 08/25/20 00:22 Monocytes % (Manual) 15.0 % (0.0-7.3) H 08/27/20 17:31 Eosinophils % (Manual) 1.0 % (0.0-4.3) 08/27/20 17:31 Basophils % (Manual) 1.0 % (0.0-1.8) 08/27/20 17:31 Metamyelocytes % 1.0 % 08/27/20 10:39 Myelocytes % 0 % 08/25/20 00:22 Promyelocytes % 0 % 08/25/20 00:22 Blast Cells % 0 % 08/25/20 00:22 Nucleated RBC % Not Reportable 08/27/20 17:31 Seg Neutrophils # 10.3 K/mm3 (1.8-7.7) H 08/25/20 10:09 Seg Neutrophils # Man 6.7 K/mm3 (1.8-7.7) 08/27/20 17:31 Band Neutrophils # 0.0 K/mm3 08/27/20 17:31 Lymphocytes # (Manual) 3.0 K/mm3 (1.2-5.4) 08/27/20 17:31 Abs React Lymphs (Man) 0.0 K/mm3 08/27/20 17:31 Monocytes # (Manual) 1.8 K/mm3 (0.0-0.8) H 08/27/20 17:31 Eosinophils # (Manual) 0.1 K/mm3 (0.0-0.4) 08/27/20 17:31 Basophils # (Manual) 0.1 K/mm3 (0.0-0.1) 08/27/20 17:31 Metamyelocytes # 0.0 K/mm3 08/27/20 17:31 Myelocytes # 0.0 K/mm3 08/27/20 17:31 Promyelocytes # 0.0 K/mm3 08/27/20 17:31 Blast Cells # 0.0 K/mm3 08/27/20 17:31 WBC Morphology Not Reportable 08/27/20 17:31 Hypersegmented Neuts Not Reportable 08/27/20 17:31 Hyposegmented Neuts Not Reportable 08/27/20 17:31 Hypogranular Neuts Not Reportable 08/27/20 17:31 Smudge Cells Not Reportable 08/27/20 17:31 Toxic Granulation Not Reportable 08/27/20 17:31 Toxic Vacuolation Not Reportable 08/27/20 17:31 Dohle Bodies Not Reportable 08/27/20 17:31 Pelger-Huet Anomaly Not Reportable 08/27/20 17:31 Farzad Rods Not Reportable 08/27/20 17:31 Platelet Estimate Not Reportable 08/27/20 17:31 Clumped Platelets Not Reportable 08/27/20 17:31 Plt Clumps, EDTA Not Reportable 08/27/20 17:31 Large Platelets Not Reportable 08/27/20 17:31 Giant Platelets Not Reportable 08/27/20 17:31 Platelet Satelliting Not Reportable 08/27/20 17:31 Plt Morphology Comment Not Reportable 08/27/20 17:31 RBC Morphology Not Reportable 08/27/20 17:31 Dimorphic RBCs Not Reportable 08/27/20 17:31 Polychromasia 1+ 08/27/20 17:31 Hypochromasia Not Reportable 08/27/20 17:31 Poikilocytosis Not Reportable 08/27/20 17:31 Anisocytosis 3+ 08/27/20 17:31 Microcytosis Few 08/27/20 17:31 Macrocytosis Not Reportable 08/27/20 17:31 Spherocytes Not Reportable 08/27/20 17:31 Pappenheimer Bodies Not Reportable 08/27/20 17:31 Sickle Cells Not Reportable 08/27/20 17:31 Target Cells Few 08/27/20 17:31 Tear Drop Cells Not Reportable 08/27/20 17:31 Ovalocytes Not Reportable 08/27/20 17:31 Helmet Cells Not Reportable 08/27/20 17:31 [place] Bodies Not Reportable 08/27/20 17:31 [place] Rings Not Reportable 08/27/20 17:31 Bradford Cells Not Reportable 08/27/20 17:31 Bite Cells Not Reportable 08/27/20 17:31 Crenated Cell Not Reportable 08/27/20 17:31 Elliptocytes Not Reportable 08/27/20 17:31 Acanthocytes (Spur) Not Reportable 08/27/20 17:31 Rouleaux Not Reportable 08/27/20 17:31 Hemoglobin C Crystals Not Reportable 08/27/20 17:31 Schistocytes Not Reportable 08/27/20 17:31 Malaria parasites Not Reportable 08/27/20 17:31 Ortiz Bodies Not Reportable 08/27/20 17:31 Hem Pathologist Commnt No 08/27/20 17:31 PT 17.4 Sec. (12.2-14.9) H 08/27/20 10:39 INR 1.44 (0.87-1.13) H 08/27/20 10:39 APTT 132.3 Sec. (24.2-36.6) H* 08/25/20 02:36 Sodium 137 mmol/L (137-145) 08/25/20 10:09 Potassium 4.5 mmol/L (3.6-5.0) 08/25/20 10:09 Chloride 108.0 mmol/L (98-107) H 08/25/20 10:09 Carbon Dioxide 21 mmol/L (22-30) L D 08/25/20 10:09 Anion Gap 13 mmol/L 08/25/20 10:09 BUN 10 mg/dL (9-20) 08/25/20 10:09 Creatinine 1.0 mg/dL (0.8-1.3) 08/25/20 10:09 Estimated GFR > 60 ml/min 08/25/20 10:09 BUN/Creatinine Ratio 10 % 08/25/20 10:09 Glucose 171 mg/dL (75-100) H 08/25/20 10:09 POC Glucose 122 mg/dL (70-105) H 08/27/20 01:26 Calcium 6.3 mg/dL (8.4-10.2) L 08/25/20 10:09 Total Bilirubin 7.20 mg/dL (0.1-1.2) H 08/25/20 00:22 AST 206 units/L (5-40) H 08/25/20 00:22 ALT 79 units/L (7-56) H 08/25/20 00:22 Alkaline Phosphatase 289 units/L (35-129) H 08/25/20 00:22 Ammonia 40.0 umol/L (25-60) 08/25/20 02:28 Total Protein 4.2 g/dL (6.3-8.2) L 08/25/20 00:22 Albumin 2.2 g/dL (3.9-5) L 08/25/20 00:22 Albumin/Globulin Ratio 1.1 % 08/25/20 00:22 Blood Type A POSITIVE 08/25/20 00:25 Antibody Screen Negative 08/25/20 00:25 Crossmatch See Detail 08/25/20 00:25 [place]/IV: Voiding Method Incontinent IV Catheter Type [Left] Peripheral IV IV Catheter Type [right hand] Peripheral IV IV Catheter Type [right wrist] Peripheral IV IV Catheter Type [Right INT / Saline Lock Forearm] Active Medications - Current Medications Current Medications: Generic Name Dose Route Start Last Admin Trade Name Freq PRN Reason Stop Dose Admin Ferrous Sulfate 325 mg 08/25/20 10:00 08/28/20 09:39 Feosol PO 325 mg BID JAYLON Administration Folic Acid 1 mg 08/25/20 10:00 08/28/20 09:39 Folvite PO 1 mg QDAY JAYLON Administration Pantoprazole Sodium 80 mg/ 100 mls @ 10 mls/hr 08/25/20 03:00 08/28/20 09:39 Sodium Chloride IV 8 mg/hr DIRECT JAYLON 10 mls/hr Administration 8 MG/HR Sodium Chloride 1,000 mls @ 50 mls/hr 08/26/20 13:45 08/27/20 22:32 Nacl 0.9% 1000 Ml IV 50 mls/hr DIRECT JAYLON Administration Sodium Chloride 500 mls @ 0 mls/hr 08/28/20 08:00 Nacl 0.9% 500 Ml IV 08/28/20 16:00 ONCE JAYLON As Directed Lorazepam 2 mg 08/26/20 11:00 08/26/20 22:57 Lorazepam 2 Mg/Ml Vial IV 2 mg Q1H PRN Administration CIWA-Ar 8-15 Lorazepam 4 mg 08/26/20 11:00 Lorazepam 2 Mg/Ml Vial IV Q1H PRN CIWA-Ar 16-25 Lorazepam 4 mg 08/26/20 11:00 Lorazepam 2 Mg/Ml Vial IV Q15MIN PRN CIWA-Ar >25 Multivitamins 1 each 08/25/20 10:00 08/28/20 09:39 Theragran Tab PO 1 each QDAY JAYLON Administration
--- NOTE | 2020-08-28 15:44 | Progress Note ---
Assessment and Plan 1. UGI bleed - likely duodenal ulcer with clot, treated with Heater probe and Epi injection. Pt had Hgb up to 6.7 yesterday, after 2 units of blood. Since then, got 2 more units pRBC as well as FFP. Labs pending. Hemodynamically stable. No evidence of severe ongoing bleed. - continue PPI drip - monitor H/H and transfuse as needed - if acute rebleed, IR evaluation Subjective Date of service: 08/28/20 Interval history: Pt denies complaints. He had 1 black BM today. Otherwise, doing better than yesterday. Objective - Constitutional Vitals: Vital Signs - 12hr 08/28/20 08/28/20 08/28/20 04:00 04:30 04:49 Temperature 99.6 F 98.8 F 98.5 F Pulse Rate 85 72 86 Respiratory 16 16 18 Rate Blood Pressure 107/64 Blood Pressure 112/73 113/72 [Left] O2 Sat by Pulse 100 100 100 Oximetry 08/28/20 08/28/20 08/28/20 07:16 10:00 12:20 Temperature 98.6 F 98.9 F Pulse Rate 88 90 91 H Respiratory 18 18 Rate Blood Pressure 115/71 Blood Pressure 105/63 [Left] O2 Sat by Pulse 100 99 Oximetry General appearance: Present: no acute distress - EENT Eyes: PERRL, EOM intact - Gastrointestinal General gastrointestinal: Present: soft, non-tender - Labs CBC & Chem 7: 08/27/20 17:31 08/25/20 10:09 Labs: Abnormal lab results 08/25/20 08/27/20 Range/Units 00:25 17:31 WBC 11.7 H (4.5-11.0) K/mm3 RBC 1.91 L (3.65-5.03) M/mm3 Hgb 6.7 L D (11.8-15.2) gm/dl Hct 19.7 L* D (35.5-45.6) % MCV 103 H (84-94) fl MCH 35 H (28-32) pg RDW 16.8 H (13.2-15.2) % Plt Count 100 L (140-440) K/mm3 Monocytes % (Manual) 15.0 H (0.0-7.3) % Monocytes # (Manual) 1.8 H (0.0-0.8) K/mm3 Crossmatch See Detail Medications & Allergies - Medications Allergies/Adverse Reactions: Allergies No Known Allergies Allergy (Verified 03/29/20 23:38) Home Medications: Home Medications Medication Instructions Recorded Confirmed Last Taken Type Folic Acid [Folvite] 1 mg PO QDAY #30 tablet 04/12/20 08/25/20 Unknown Rx Multivitamin Tab [Multiple Vitamin 1 each PO QDAY #30 tablet 04/12/20 08/25/20 Unknown Rx TAB (Theragran)] Thiamine [Vitamin B-1] 100 mg PO QDAY #30 tablet 04/12/20 08/25/20 Unknown Rx atenoloL [Tenormin] 25 mg PO QDAY #30 tablet 04/12/20 08/25/20 Unknown Rx Famotidine [Pepcid] 20 mg PO BID #6 tablet 08/08/20 08/25/20 Unknown Rx diphenhydrAMINE [Benadryl CAP] 50 mg PO Q6HR #24 capsule 08/08/20 08/25/20 Unknown Rx Active Medications: Generic Name Dose Route Start Last Admin Trade Name Freq PRN Reason Stop Dose Admin Ferrous Sulfate 325 mg 08/25/20 10:00 08/28/20 09:39 Feosol PO 325 mg BID JAYLON Administration Folic Acid 1 mg 08/25/20 10:00 08/28/20 09:39 Folvite PO 1 mg QDAY JAYLON Administration Pantoprazole Sodium 80 mg/ 100 mls @ 10 mls/hr 08/25/20 03:00 08/28/20 09:39 Sodium Chloride IV 8 mg/hr DIRECT JAYLON 10 mls/hr Administration 8 MG/HR Sodium Chloride 1,000 mls @ 50 mls/hr 08/26/20 13:45 08/27/20 22:32 Nacl 0.9% 1000 Ml IV 50 mls/hr DIRECT JAYLON Administration Sodium Chloride 500 mls @ 0 mls/hr 08/28/20 08:00 Nacl 0.9% 500 Ml IV 08/28/20 16:00 ONCE JAYLON As Directed Lorazepam 2 mg 08/26/20 11:00 08/26/20 22:57 Lorazepam 2 Mg/Ml Vial IV 2 mg Q1H PRN Administration [facility] 8-15 Lorazepam 4 mg 12/11/20 11:00 Lorazepam 2 Mg/Ml Vial IV Q1H PRN CIWA-Ar 16-25 Lorazepam 4 mg 08/26/20 11:00 Lorazepam 2 Mg/Ml Vial IV Q15MIN PRN CIWA-Ar >25 Multivitamins 1 each 08/25/20 10:00 08/28/20 09:39 Theragran Tab PO 1 each QDAY JAYLON Administration
[2020-08-28 16:51] LABS: Hematocrit 26.5 % (35.5-45.6); Hemoglobin 9.4 gm/dl (11.8-15.2); Mean Corpuscular HGB Conc 35 % (32-34); Mean Corpuscular Volume 95 fl (84-94); Red Blood Count 2.78 M/mm3 (3.65-5.03); Red Cell Distribution Width 17.7 % (13.2-15.2)
[2020-08-28 16:54] LABS: Platelet Count 94 K/mm3 (140-440)
[2020-08-28 17:09] LABS: INR 1.11 (0.87-1.13)
[2020-08-28 18:15] LABS: Anisocytosis Few; Total Cells Counted 100
[2020-08-28] MEDS: SODIUM CHLORIDE 0.9% 1000 ML 1,000 ML IV SCH (18:22)
--- NOTE | 2020-08-28 19:02 | Progress Note ---
Assessment and Plan Patient alert, awake. Resting on room air. O2 saturation 100%. No complaint of chest pain or shortness of breath.Patient anemic. Corrected to days HGB 9.7. Patient afebrile. No leukocytosis. No chest xray done. Obtaining chest xray. - Patient Problems (1) Hypotension Current Visit: Yes Status: Acute Plan to address problem: Patients blood pressure improved. Recent blood pressure 118/76. (2) Alcoholic hepatitis Current Visit: No Status: Acute Qualifiers: Ascites presence: without ascites Qualified Code(s): K70.10 - Alcoholic hepatitis without ascites Plan to address problem: Management as per gastroenterology. (3) GI bleed Current Visit: No Status: Acute Qualifiers: GI bleed type/associated pathology: melena Qualified Code(s): K92.1 - Melen a Plan to address problem: Management as per gastroenterology. (4) History of alcohol abuse Current Visit: No Status: Acute Plan to address problem: Counseled to stop drinking alcohol. Subjective Date of service: 08/28/20 Interval history: Patient alert, awake. Resting on room air. O2 saturation 100%. No complaint of chest pain or shortness of breath.Patient anemic. Corrected to days HGB 9.7. Patient afebrile. No leukocytosis. No chest xray done. Obtaining chest xray. Objective Vital Signs - 12hr 08/28/20 08/28/20 08/28/20 07:16 10:00 12:02 Temperature 98.6 F Pulse Rate 88 90 87 Respiratory 18 Rate Blood Pressure 115/71 Blood Pressure [Left] O2 Sat by Pulse 100 100 Oximetry 08/28/20 08/28/20 12:20 16:41 Temperature 98.9 F 98.4 F Pulse Rate 91 H 86 Respiratory 18 18 Rate Blood Pressure Blood Pressure 105/63 118/76 [Left] O2 Sat by Pulse 99 99 Oximetry Constitutional: no acute distress, alert Eyes: non-icteric Neck: supple Effort: normal Ascultation: Bilateral: clear Cardiovascular: regular rate and rhythm Gastrointestinal: normoactive bowel sounds, soft, non-tender Integumentary: normal Extremities: no cyanosis, no edema Neurologic: normal mental status, non-focal exam, pupils equal and round Psychiatric: mood appropriate CBC and BMP: 08/28/20 19:01 08/25/20 10:09 ABG, PT/INR, D-dimer: PT/INR, D-dimer PT 14.2 Sec. (12.2-14.9) 08/28/20 16:19 INR 1.11 (0.87-1.13) 08/28/20 16:19 Abnormal lab findings: Abnormal Labs 08/25/20 08/25/20 08/25/20 00:22 00:22 00:25 WBC 17.9 H RBC 1.55 L Hgb 5.7 L* Hct 17.9 L* MCV 116 H MCH 37 H MCHC RDW 19.0 H Plt Count 132 L [place] % (Auto) [place] # (Auto) Seg Neutrophils % Seg Neuts % (Manual) 85.0 H Lymphocytes % (Manual) 11.0 L Monocytes % (Manual) Nucleated RBC % Seg Neutrophils # Seg Neutrophils # Man 15.2 H Lymphocytes # (Manual) Monocytes # (Manual) PT INR APTT Sodium 133 L Chloride Carbon Dioxide 13 L Glucose 249 H POC Glucose Calcium 7.3 L Total Bilirubin 7.20 H AST 206 H ALT 79 H Alkaline Phosphatase 289 H Total Protein 4.2 L Albumin 2.2 L Crossmatch See Detail 08/25/20 08/25/20 08/25/20 02:36 10:09 10:09 WBC 14.1 H RBC 2.10 L Hgb 7.0 L Hct 20.3 L MCV 97 H MCH 33 H MCHC 35 H RDW 21.8 H Plt Count 81 L [place] % (Auto) 9.3 H [place] # (Auto) 1.3 H Seg Neutrophils % 71.3 H Seg Neuts % (Manual) Lymphocytes % (Manual) Monocytes % (Manual) Nucleated RBC % Seg Neutrophils # 10.3 H Seg Neutrophils # Man Lymphocytes # (Manual) Monocytes # (Manual) PT 22.5 H INR 1.97 H APTT 132.3 H* Sodium Chloride 108.0 H Carbon Dioxide 21 L D Glucose 171 H POC Glucose Calcium 6.3 L Total Bilirubin AST ALT Alkaline Phosphatase Total Protein Albumin Crossmatch 08/27/20 08/27/20 08/27/20 01:26 10:39 10:39 WBC RBC 0.89 L Hgb 3.2 L* D Hct 9.7 L* D MCV 109 H MCH 36 H MCHC RDW 27.3 H Plt Count 114 L [place] % (Auto) [place] # (Auto) Seg Neutrophils % Seg Neuts % (Manual) 71.0 H Lymphocytes % (Manual) Monocytes % (Manual) Nucleated RBC % 11.0 H Seg Neutrophils # Seg Neutrophils # Man 8.4 H Lymphocytes # (Manual) Monocytes # (Manual) PT 17.4 H INR 1.44 H APTT Sodium Chloride Carbon Dioxide Glucose POC Glucose 122 H Calcium Total Bilirubin AST ALT Alkaline Phosphatase Total Protein Albumin Crossmatch 08/27/20 08/28/20 08/28/20 17:31 16:19 16:19 WBC 11.7 H RBC 1.91 L 2.78 L Hgb 6.7 L D 9.4 L Hct 19.7 L* D 26.5 L D MCV 103 H 95 H MCH 35 H 34 H MCHC 35 H RDW 16.8 H 17.7 H Plt Count 100 L 94 L [place] % (Auto) [place] # (Auto) Seg Neutrophils % Seg Neuts % (Manual) 75.0 H Lymphocytes % (Manual) Monocytes % (Manual) 15.0 H 9.0 H Nucleated RBC % Seg Neutrophils # Seg Neutrophils # Man Lymphocytes # (Manual) 1.1 L Monocytes # (Manual) 1.8 H PT INR APTT Sodium Chloride Carbon Dioxide Glucose POC Glucose Calcium Total Bilirubin AST ALT Alkaline Phosphatase Total Protein Albumin Crossmatch See Detail
[2020-08-28 20:36] LABS: Hematocrit 26.3 % (35.5-45.6); Hemoglobin 9.1 gm/dl (11.8-15.2); Mean Corpuscular HGB Conc 35 % (32-34); Mean Corpuscular Volume 98 fl (84-94); Red Blood Count 2.69 M/mm3 (3.65-5.03); Red Cell Distribution Width 18.4 % (13.2-15.2)
[2020-08-28 20:57] LABS: Platelet Count 91 K/mm3 (140-440)
[2020-08-28 22:09] LABS: Anisocytosis Few; Hypochromasia Rare; Total Cells Counted 100
[2020-08-29] MEDS: PANTOPRAZOLE 80 MG in SODIUM CHLORIDE 0.9% 100 ML IV SCH (05:04)
[2020-08-29 06:18] LABS: Basophils % (Auto) 0.6 % (0.0-1.8); Eosinophils # (Auto) 0.1 K/mm3 (0.0-0.4); Eosinophils % (Auto) 1.8 % (0.0-4.3); Hematocrit 24.8 % (35.5-45.6); Hemoglobin 8.7 gm/dl (11.8-15.2); Lymphocytes # (Auto) 1.4 K/mm3 (1.2-5.4); Lymphocytes % (Auto) 17.4 % (13.4-35.0); Mean Corpuscular HGB Conc 35 % (32-34); Mean Corpuscular Volume 98 fl (84-94); Monocytes # (Auto) 0.8 K/mm3 (0.0-0.8); Monocytes % (Auto) 9.8 % (0.0-7.3); Platelet Count 100 K/mm3 (140-440); Red Blood Count 2.54 M/mm3 (3.65-5.03); Red Cell Distribution Width 17.7 % (13.2-15.2)
--- NOTE | 2020-08-29 08:34 | XRay Report ---
XR chest routine 2V INDICATION / CLINICAL INFORMATION: Possible aspiration COMPARISON: None available. FINDINGS: SUPPORT DEVICES: None. HEART / MEDIASTINUM: No significant abnormality. LUNGS / PLEURA: Lungs are clear. Costophrenic sulci are sharp. No pneumothorax. ADDITIONAL FINDINGS: No significant additional findings. IMPRESSION: 1. No acute findings. Signer Name: Pete Bhatti MD Signed: 08/29/2020 8:29 AM Workstation Name: [id number]
--- NOTE | 2020-08-29 09:16 | Progress Note ---
Assessment and Plan Assessment and plan: GI bleed GI consult-f/u with recommendation Blood trasfusion times 2 units CBC inbetween transfusion Monitor H/h Protonix and octreotide gtt Abnormal LFTs (liver function tests) 2/2 to alcohol use disorder Moniotr liver function Discussed alcohol use cessation EtOH abuse [facility] protocol alcoholic hepatitis discussed alcohol cessation Gi Consulted Anemia Transfuse PRBCs Moniotr H/H F/U GI recommendation Coagulopathy/elevated INR Etiology secondary to likely alcoholic liver disease/liver cirrhosis. INR 1.9 s/p 1 unit FFP vitamin k x 1 Monitor PT/INR Hypovolemia likely 2/2 to dehydration Pt given 3 liters of fluid in ED 2 units PRBCs and 1 unit FFP ordered Moniotor BP level DVT prophylaxis scd 08/26/2020. Continue octreotide and Protonix drip. Await GI consultation. [facility] protocol. Check CBC and INR. Transfuse FFP and PRBCs as needed. 08/27/2020. Patient is s/p EGD which revealed old blood in stomach and proximal small bowel. A clot was noted with an probable ulcer 23rd portion s/p epi/heater probe. No evidence of varices. Octreotide discontinued. Follow-up H&H and transfuse for hemoglobin less than 7. Continue Protonix drip. Continue CIWA protocol. 08/28/2020. Patient remains anemic with hemoglobin of 6.7 after total of 6 units of PRBCs transfused. Continue with PRBCs to maintain hemoglobin greater than 7. Patient continues to have melena. Await GI decision to perform endoscopy. Continue PPI drip. 08/29/2020. Patient with no active signs of bleeding. Hemoglobin is stable at 8.7. We will continue to monitor x24 hours and anticipate discharge in a.m. if hemodynamically stable and no bleeding. Continue Protonix drip. Consider further endoscopy per GI. History Interval history: No active bleeding. Hospitalist Physical - Constitutional Vitals: Temp Pulse Resp BP Pulse Ox 99.8 F H 104 H 17 104/53 99 08/29/20 03:30 08/29/20 03:30 08/29/20 03:30 08/29/20 03:30 08/29/20 03:30 General appearance: Present: no acute distress - EENT Eyes: Present: PERRL, EOM intact ENT: hearing intact, clear oral mucosa, dentition normal - Neck Neck: Present: supple, normal ROM - Respiratory Respiratory effort: normal Respiratory: bilateral: CTA - Cardiovascular Rhythm: regular Heart Sounds: Present: S1 & S2. Absent: gallop, rub - Extremities Extremities: no ischemia, No edema, Full ROM - Abdominal General gastrointestinal: soft, non-tender, non-distended, normal bowel sounds - Integumentary Integumentary: Present: clear, warm, dry - Neurologic Neurologic: CNII-XII intact, moves all extremities Results - Labs CBC & Chem 7: 08/29/20 05:37 08/25/20 10:09 Labs: Laboratory Last Values WBC 8.2 K/mm3 (4.5-11.0) 08/29/20 05:37 RBC 2.54 M/mm3 (3.65-5.03) L 08/29/20 05:37 Hgb 8.7 gm/dl (11.8-15.2) L 08/29/20 05:37 Hct 24.8 % (35.5-45.6) L 08/29/20 05:37 MCV 98 fl (84-94) H 08/29/20 05:37 MCH 34 pg (28-32) H 08/29/20 05:37 MCHC 35 % (32-34) H 08/29/20 05:37 RDW 17.7 % (13.2-15.2) H 08/29/20 05:37 Plt Count 100 K/mm3 (140-440) L 08/29/20 05:37 Lymph % (Auto) 17.4 % (13.4-35.0) 08/29/20 05:37 [place] % (Auto) 9.8 % (0.0-7.3) H 08/29/20 05:37 Eos % (Auto) 1.8 % (0.0-4.3) 08/29/20 05:37 Baso % (Auto) 0.6 % (0.0-1.8) 08/29/20 05:37 Lymph # (Auto) 1.4 K/mm3 (1.2-5.4) 08/29/20 05:37 [place] # (Auto) 0.8 K/mm3 (0.0-0.8) 08/29/20 05:37 Eos # (Auto) 0.1 K/mm3 (0.0-0.4) 08/29/20 05:37 Baso # (Auto) 0.0 K/mm3 (0.0-0.1) 08/29/20 05:37 Add Manual Diff Complete 08/28/20 19:01 Total Counted 100 08/28/20 19:01 Seg Neutrophils % 70.4 % (40.0-70.0) H 08/29/20 05:37 Seg Neuts % (Manual) 72.0 % (40.0-70.0) H 08/28/20 19:01 Band Neutrophils % 4.0 % 08/27/20 10:39 Lymphocytes % (Manual) 18.0 % (13.4-35.0) 08/28/20 19:01 Reactive Lymphs % (Man) 0 % 08/25/20 00:22 Monocytes % (Manual) 10.0 % (0.0-7.3) H 08/28/20 19:01 Eosinophils % (Manual) 1.0 % (0.0-4.3) 08/28/20 16:19 Basophils % (Manual) 1.0 % (0.0-1.8) 08/28/20 16:19 Metamyelocytes % 1.0 % 08/27/20 10:39 Myelocytes % 0 % 08/25/20 00:22 Promyelocytes % 0 % 08/25/20 00:22 Blast Cells % 0 % 08/25/20 00:22 Nucleated RBC % Not Reportable 08/28/20 19:01 Seg Neutrophils # 5.8 K/mm3 (1.8-7.7) 08/29/20 05:37 Seg Neutrophils # Man 6.0 K/mm3 (1.8-7.7) 08/28/20 19:01 Band Neutrophils # 0.0 K/mm3 08/28/20 19:01 Lymphocytes # (Manual) 1.5 K/mm3 (1.2-5.4) 08/28/20 19:01 Abs React Lymphs (Man) 0.0 K/mm3 08/28/20 19:01 Monocytes # (Manual) 0.8 K/mm3 (0.0-0.8) 08/28/20 19:01 Eosinophils # (Manual) 0.0 K/mm3 (0.0-0.4) 08/28/20 19:01 Basophils # (Manual) 0.0 K/mm3 (0.0-0.1) 08/28/20 19:01 Metamyelocytes # 0.0 K/mm3 08/28/20 19:01 Myelocytes # 0.0 K/mm3 08/28/20 19:01 Promyelocytes # 0.0 K/mm3 08/28/20 19:01 Blast Cells # 0.0 K/mm3 08/28/20 19:01 WBC Morphology Not Reportable 08/28/20 19:01 Hypersegmented Neuts Not Reportable 08/28/20 19:01 Hyposegmented Neuts Not Reportable 08/28/20 19:01 Hypogranular Neuts Not Reportable 08/28/20 19:01 Smudge Cells Not Reportable 08/28/20 19:01 Toxic Granulation Not Reportable 08/28/20 19:01 Toxic Vacuolation Not Reportable 08/28/20 19:01 Dohle Bodies Not Reportable 08/28/20 19:01 Pelger-Huet Anomaly Not Reportable 08/28/20 19:01 Farzad Rods Not Reportable 08/28/20 19:01 Platelet Estimate Not Reportable 08/28/20 19:01 Clumped Platelets Not Reportable 08/28/20 19:01 Plt Clumps, EDTA Not Reportable 08/28/20 19:01 Large Platelets Not Reportable 08/28/20 19:01 Giant Platelets Not Reportable 08/28/20 19:01 Platelet Satelliting Not Reportable 08/28/20 19:01 Plt Morphology Comment Not Reportable 08/28/20 19:01 RBC Morphology Not Reportable 08/28/20 19:01 Dimorphic RBCs Not Reportable 08/28/20 19:01 Polychromasia Not Reportable 08/28/20 19:01 Hypochromasia Rare 08/28/20 19:01 Poikilocytosis Not Reportable 08/28/20 19:01 Anisocytosis Few 08/28/20 19:01 Microcytosis Few 08/28/20 19:01 Macrocytosis Not Reportable 08/28/20 19:01 Spherocytes Not Reportable 08/28/20 19:01 Pappenheimer Bodies Not Reportable 08/28/20 19:01 Sickle Cells Not Reportable 08/28/20 19:01 Target Cells Not Reportable 08/28/20 19:01 Tear Drop Cells Not Reportable 08/28/20 19:01 Ovalocytes Not Reportable 08/28/20 19:01 Helmet Cells Not Reportable 08/28/20 19:01 Singh-Christiana Bodies Not Reportable 08/28/20 19:01 Lyons Rings Not Reportable 08/28/20 19:01 [place] Cells Not Reportable 08/28/20 19:01 Bite Cells Not Reportable 08/28/20 19:01 Crenated Cell Not Reportable 08/28/20 19:01 Elliptocytes Not Reportable 08/28/20 19:01 Acanthocytes (Spur) Not Reportable 08/28/20 19:01 Rouleaux Not Reportable 08/28/20 19:01 Hemoglobin C Crystals Not Reportable 08/28/20 19:01 Schistocytes Not Reportable 08/28/20 19:01 Malaria parasites Not Reportable 08/28/20 19:01 Ortiz Bodies Not Reportable 08/28/20 19:01 Hem Pathologist Commnt No 08/28/20 19:01 PT 14.2 Sec. (12.2-14.9) 08/28/20 16:19 INR 1.11 (0.87-1.13) 08/28/20 16:19 APTT 132.3 Sec. (24.2-36.6) H* 08/25/20 02:36 Sodium 137 mmol/L (137-145) 08/25/20 10:09 Potassium 4.5 mmol/L (3.6-5.0) 08/25/20 10:09 Chloride 108.0 mmol/L (98-107) H 08/25/20 10:09 Carbon Dioxide 21 mmol/L (22-30) L D 08/25/20 10:09 Anion Gap 13 mmol/L 08/25/20 10:09 BUN 10 mg/dL (9-20) 08/25/20 10:09 Creatinine 1.0 mg/dL (0.8-1.3) 08/25/20 10:09 Estimated GFR > 60 ml/min 08/25/20 10:09 BUN/Creatinine Ratio 10 % 08/25/20 10:09 Glucose 171 mg/dL (75-100) H 08/25/20 10:09 POC Glucose 122 mg/dL (70-105) H 08/27/20 01:26 Calcium 6.3 mg/dL (8.4-10.2) L 08/25/20 10:09 Total Bilirubin 7.20 mg/dL (0.1-1.2) H 08/25/20 00:22 AST 206 units/L (5-40) H 08/25/20 00:22 ALT 79 units/L (7-56) H 08/25/20 00:22 Alkaline Phosphatase 289 units/L (35-129) H 08/25/20 00:22 Ammonia 40.0 umol/L (25-60) 08/25/20 02:28 Total Protein 4.2 g/dL (6.3-8.2) L 08/25/20 00:22 Albumin 2.2 g/dL (3.9-5) L 08/25/20 00:22 Albumin/Globulin Ratio 1.1 % 08/25/20 00:22 Blood Type A POSITIVE 08/28/20 16:19 Antibody Screen Negative 08/28/20 16:19 Crossmatch See Detail 08/28/20 16:19 Pelayo/IV: Voiding Method Incontinent IV Catheter Type [Left] Peripheral IV IV Catheter Type [right hand] Peripheral IV IV Catheter Type [right wrist] Peripheral IV IV Catheter Type [Right INT / Saline Lock Forearm] Active Medications - Current Medications Current Medications: Generic Name Dose Route Start Last Admin Trade Name Freq PRN Reason Stop Dose Admin Ferrous Sulfate 325 mg 08/25/20 10:00 08/28/20 21:24 Feosol PO 325 mg BID JAYLON Administration Folic Acid 1 mg 08/25/20 10:00 08/28/20 09:39 Folvite PO 1 mg QDAY JAYLON Administration Pantoprazole Sodium 80 mg/ 100 mls @ 10 mls/hr 08/25/20 03:00 08/29/20 05:04 Sodium Chloride IV 8 mg/hr DIRECT JAYLON 10 mls/hr Administration 8 MG/HR Sodium Chloride 1,000 mls @ 50 mls/hr 08/26/20 13:45 08/28/20 18:22 Nacl 0.9% 1000 Ml IV 50 mls/hr DIRECT JAYLON Administration Lorazepam 2 mg 08/26/20 11:00 08/26/20 22:57 Lorazepam 2 Mg/Ml Vial IV 2 mg Q1H PRN Administration CIWA-Ar 8-15 Lorazepam 4 mg 08/26/20 11:00 Lorazepam 2 Mg/Ml Vial IV Q1H PRN CIWA-Ar 16-25 Lorazepam 4 mg 08/26/20 11:00 Lorazepam 2 Mg/Ml Vial IV Q15MIN PRN CIWA-Ar >25 Multivitamins 1 each 08/25/20 10:00 08/28/20 09:39 Theragran Tab PO 1 each QDAY JAYLON Administration
[2020-08-29] MEDS: FERROUS SULFATE 325 MG TAB PO SCH (11:07)
[2020-08-29] MEDS: MULTIVITAMINS ,THERAPEUTIC TAB PO SCH (11:07)
[2020-08-29] MEDS: FOLIC ACID 1 MG TAB PO SCH (11:07)
[2020-08-29 12:50] VITALS: BP 104/58
--- NOTE | 2020-08-29 13:18 | Progress Note ---
Assessment and Plan 1. UGI bleed - likely duodenal ulcer with clot, treated with Heater probe and Epi injection. Pt had Hgb up to 8.7 yesterday, after total of 4 units of blood. Hemodynamically stable. No evidence of ongoing bleed. - okay to D/C on chronic PPI - f/u as outpatient. Will sign off. Thanks. Subjective Date of service: 08/29/20 Interval history: Pt denies complaints. He had 1 small black BM today. Objective - Constitutional Vitals: Vital Signs - 12hr 08/29/20 08/29/20 08/29/20 03:30 08:37 12:28 Temperature 99.8 F H 98.9 F 98.6 F Pulse Rate 104 H 94 H 94 H Respiratory 17 20 Rate Blood Pressure 104/53 113/64 104/58 O2 Sat by Pulse 99 99 100 Oximetry General appearance: Present: no acute distress - EENT Eyes: PERRL, EOM intact ENT: hearing intact - Respiratory Respiratory effort: normal - Gastrointestinal General gastrointestinal: Present: soft, non-tender - Labs CBC & Chem 7: 08/29/20 05:37 08/25/20 10:09 Labs: Abnormal lab results 08/28/20 08/28/20 08/28/20 Range/Units 16:19 16:19 19:01 RBC 2.78 L 2.69 L (3.65-5.03) M/mm3 Hgb 9.4 L 9.1 L (11.8-15.2) gm/dl Hct 26.5 L D 26.3 L (35.5-45.6) % MCV 95 H 98 H (84-94) fl MCH 34 H 34 H (28-32) pg MCHC 35 H 35 H (32-34) % RDW 17.7 H 18.4 H (13.2-15.2) % Plt Count 94 L 91 L (140-440) K/mm3 [place] % (Auto) (0.0-7.3) % Seg Neutrophils % (40.0-70.0) % Seg Neuts % (Manual) 75.0 H 72.0 H (40.0-70.0) % Monocytes % (Manual) 9.0 H 10.0 H (0.0-7.3) % Lymphocytes # (Manual) 1.1 L (1.2-5.4) K/mm3 Crossmatch See Detail 08/29/20 Range/Units 05:37 RBC 2.54 L (3.65-5.03) M/mm3 Hgb 8.7 L (11.8-15.2) gm/dl Hct 24.8 L (35.5-45.6) % MCV 98 H (84-94) fl MCH 34 H (28-32) pg MCHC 35 H (32-34) % RDW 17.7 H (13.2-15.2) % Plt Count 100 L (140-440) K/mm3 [place] % (Auto) 9.8 H (0.0-7.3) % Seg Neutrophils % 70.4 H (40.0-70.0) % Seg Neuts % (Manual) (40.0-70.0) % Monocytes % (Manual) (0.0-7.3) % Lymphocytes # (Manual) (1.2-5.4) K/mm3 Crossmatch Medications & Allergies - Medications Allergies/Adverse Reactions: Allergies No Known Allergies Allergy (Verified 03/29/20 23:38) Home Medications: Home Medications Medication Instructions Recorded Confirmed Last Taken Type Folic Acid [Folvite] 1 mg PO QDAY #30 tablet 04/12/20 08/25/20 Unknown Rx Multivitamin Tab [Multiple Vitamin 1 each PO QDAY #30 tablet 04/12/20 08/25/20 Unknown Rx TAB (Theragran)] Thiamine [Vitamin B-1] 100 mg PO QDAY #30 tablet 04/12/20 08/25/20 Unknown Rx atenoloL [Tenormin] 25 mg PO QDAY #30 tablet 04/12/20 08/25/20 Unknown Rx Famotidine [Pepcid] 20 mg PO BID #6 tablet 08/08/20 08/25/20 Unknown Rx diphenhydrAMINE [Benadryl CAP] 50 mg PO Q6HR #24 capsule 08/08/20 08/25/20 Unknown Rx Active Medications: Generic Name Dose Route Start Last Admin Trade Name Freq PRN Reason Stop Dose Admin Ferrous Sulfate 325 mg 08/25/20 10:00 08/29/20 11:07 Feosol PO 325 mg BID JAYLON Administration Folic Acid 1 mg 08/25/20 10:00 08/29/20 11:07 Folvite PO 1 mg QDAY JAYLON Administration Pantoprazole Sodium 80 mg/ 100 mls @ 10 mls/hr 08/25/20 03:00 08/29/20 05:04 Sodium Chloride IV 8 mg/hr DIRECT JAYLON 10 mls/hr Administration 8 MG/HR Sodium Chloride 1,000 mls @ 50 mls/hr 08/26/20 13:45 08/28/20 18:22 Nacl 0.9% 1000 Ml IV 50 mls/hr DIRECT JAYLON Administration Lorazepam 2 mg 08/26/20 11:00 08/26/20 22:57 Lorazepam 2 Mg/Ml Vial IV 2 mg Q1H PRN Administration CIWA-Ar 8-15 Lorazepam 4 mg 08/26/20 11:00 Lorazepam 2 Mg/Ml Vial IV Q1H PRN CIWA-Ar 16-25 Lorazepam 4 mg 08/26/20 11:00 Lorazepam 2 Mg/Ml Vial IV Q15MIN PRN CIWA-Ar >25 Multivitamins 1 each 08/25/20 10:00 08/29/20 11:07 Theragran Tab PO 1 each QDAY JAYLON Administration
== END 2020-08-29 13:12 | disposition left against medical advice (07) | DRG 377 ==
LOC: ED 22:10 → CC1 08-25 02:36 → 4A 08-25 20:03
PROVIDERS: ADMIT Internal Medicine Geriatric Medicine; ATTEND Hospitalist
PROC: 30233N1 Transfusion of Nonautologous Red Blood Cells into Peripheral Vein, Percutaneous Approach (ICD-10-PCS; principal; 2020-08-25)
PROC: 0W3P8ZZ Control Bleeding in Gastrointestinal Tract, Via Natural or Artificial Opening Endoscopic (ICD-10-PCS; 2020-08-26)
PROC: 30233K1 Transfusion of Nonautologous Frozen Plasma into Peripheral Vein, Percutaneous Approach (ICD-10-PCS; 2020-08-27)
DX: K26.4 Chronic or unspecified duodenal ulcer with hemorrhage (principal); K72.00 Acute and subacute hepatic failure without coma; D68.9 Coagulation defect, unspecified; K70.10 Alcoholic hepatitis without ascites; D64.9 Anemia, unspecified; I95.9 Hypotension, unspecified; E86.1 Hypovolemia; K74.60 Unspecified cirrhosis of liver; I10 Essential (primary) hypertension; R73.9 Hyperglycemia, unspecified; F10.10 Alcohol abuse, uncomplicated; F17.210 Nicotine dependence, cigarettes, uncomplicated
CPT/HCPCS: 36415; 70450; 71046; 80048; 80053; 82140; 82962; 85007; 85025; 85610; 85730; 86850; 86900; 86901; 86920; 96365; 96375; 99406; G0378; C9113; J0171; J2060; J2354; J2704; J3430; J7030; J7040; P9016; P9017

== ENCOUNTER 2021-11-15 12:44 | Emergency (ER) | payer OTHER, SELFPAY ==
[2021-11-15 14:14] LABS: Basophils % (Auto) 0.9 % (0.0-1.8); Eosinophils % (Auto) 0.7 % (0.0-4.3); Hemoglobin 13.8 gm/dl (11.8-15.2); Lymphocytes # (Auto) 1.2 K/mm3 (1.2-5.4); Lymphocytes % (Auto) 28.9 % (13.4-35.0); Mean Corpuscular HGB Conc 35 % (32-34); Mean Corpuscular Volume 111 fl (84-94); Monocytes # (Auto) 0.2 K/mm3 (0.0-0.8); Monocytes % (Auto) 4.9 % (0.0-7.3); Platelet Count 190 K/mm3 (140-440); Red Blood Count 3.61 M/mm3 (3.65-5.03); Red Cell Distribution Width 15.1 % (13.2-15.2)
[2021-11-15 14:30] LABS: INR 0.96 (0.87-1.13)
[2021-11-15 14:31] LABS: Partial Thromboplastin Time 29.4 Sec. (24.2-36.6)
[2021-11-15 14:40] LABS: Alanine Aminotransferase 47 units/L (7-56); Albumin 4.5 g/dL (3.9-5); Blood Urea Nitrogen 6 mg/dL (9-20); Hemolysis Index 19
[2021-11-15 15:44] LABS: BUN/Creatinine Ratio 10
--- NOTE | 2021-11-15 16:40 | Emergency Department Report ---
ED Chest Pain HPI - General Chief Complaint: Chest Pain Stated Complaint: HEART RACING/CP Time Seen by Provider: 11/15/21 16:07 Source: patient Mode of arrival: Ambulatory Limitations: No Limitations - History of Present Illness Initial Comments: 36-year-old -[place] male presents to the emergency department with complaint of a 5-day history of "my left side just feels weird." At first he started saying that it was a numbness, but it seems more consistent with the complaint of some weakness. He denies any headache, vision change, slurred s peech, facial asymmetry. The patient also complains of a 3-day history of some intermittent palpitations. He denies any actual chest pain, shortness of breath, lower extremity swelling. He has not taken anything for symptoms prior to presentation. He has a past medical history of hypertension, gastritis, GERD, ulcers causing GI bleeding and requiring blood transfusions. He is a tobacco smoker. No recent travel or sick contacts at home. He has an appointment in a few days for [facility]. - Related Data Previous Rx's Medication Instructions Recorded Last Taken Type Folic Acid [Folvite] 1 mg PO QDAY #30 tablet 04/12/20 Unknown Rx Multivitamin Tab [Multiple Vitamin 1 each PO QDAY #30 tablet 04/12/20 Unknown Rx TAB (Theragran)] Thiamine [Vitamin B-1] 100 mg PO QDAY #30 tablet 04/12/20 Unknown Rx atenoloL [Tenormin] 25 mg PO QDAY #30 tablet 04/12/20 Unknown Rx Famotidine [Pepcid] 20 mg PO BID #6 tablet 08/08/20 Unknown Rx diphenhydrAMINE [Benadryl CAP] 50 mg PO Q6HR #24 capsule 08/08/20 Unknown Rx Allergies Allergy/AdvReac Type Severity Reaction Status Date / Time No Known Allergies Allergy Verified 03/29/20 23:38 Heart Score - HEART Score History: Slightly suspicious EKG: Normal Age: < 45 Risk factors: 1-2 risk factors Troponin: < normal limit HEART Score: 1 - EKG Read Time Time EKG Completed: 13:12 EKG Read Time: 13:13 - Critical Actions Critical Actions: 0-3 pts:0.9-1.7%risk of adverse cardiac event.Candidate for discharge ED Review of Systems ROS: Stated complaint: HEART RACING/CP Other details as noted in HPI Comment: All other systems reviewed and negative Constitutional: denies: chills, fever Eyes: denies: eye pain, vision change ENT: denies: ear pain, throat pain Respiratory: denies: cough, shortness of breath Cardiovascular: palpitations. denies: chest pain, edema Gastrointestinal: denies: abdominal pain, vomiting Genitourinary: denies: dysuria, discharge Musculoskeletal: denies: back pain, arthralgia Skin: denies: rash, lesions Neurological: weakness. denies: headache ED Past Medical Hx - Past Medical History Hx Hypertension: Yes Hx Heart Attack/AMI: No Hx GERD: Yes Hx Liver Disease: Yes (Alcohol hepatitis) Hx Renal Disease: No Hx Sickle Cell Disease: No Hx Seizures: Yes (08/24/20) Hx Asthma: No Hx COPD: No Additional medical history: cirrhosis of liver - Surgical History Hx Pacemaker: No Hx Internal Defibrillator: No - Social History Smoking Status: Current Every Day Smoker - Medications Home Medications: Home Medications Medication Instructions Recorded Confirmed Last Taken Type Folic Acid [Folvite] 1 mg PO QDAY #30 tablet 04/12/20 08/25/20 Unknown Rx Multivitamin Tab [Multiple Vitamin 1 each PO QDAY #30 tablet 04/12/20 08/25/20 Unknown Rx TAB (Theragran)] Thiamine [Vitamin B-1] 100 mg PO QDAY #30 tablet 04/12/20 08/25/20 Unknown Rx atenoloL [Tenormin] 25 mg PO QDAY #30 tablet 04/12/20 08/25/20 Unknown Rx Famotidine [Pepcid] 20 mg PO BID #6 tablet 08/08/20 08/25/20 Unknown Rx diphenhydrAMINE [Benadryl CAP] 50 mg PO Q6HR #24 capsule 08/08/20 08/25/20 Unknown Rx ED Physical Exam - General Limitations: No Limitations - Other Other exam information: GENERAL: The patient is well-developed well-nourished. HENT: Normocephalic. Atraumatic. Patient has moist mucous membranes. EYES: Extraocular motions are intact. Pupils equal reactive to light bilaterally. No nystagmus. NECK: Supple. Trachea is midline. CHEST/LUNGS: Clear to auscultation. There is no respiratory distress noted. HEART/CARDIOVASCULAR: Regular. There is no tachycardia. There is no murmur. ABDOMEN: Abdomen is soft, nontender. Patient has normal bowel sounds. There is no abdominal distention. SKIN: Skin is warm and dry. NEURO: The patient is awake, alert, and oriented. The patient is cooperative. The patient has no focal neurologic deficits. Normal speech. Cranial nerves II through XII grossly intact. No facial asymmetry. No pronator drift or dy smetria. MUSCULOSKELETAL: There is no tenderness or deformity. There is no limitation range of motion. ED Course Vital Signs 11/15/21 11/15/21 13:07 17:32 Temperature 98.4 F Pulse Rate 121 H 85 Respiratory 16 16 Rate Blood Pressure 154/95 126/86 [Left] O2 Sat by Pulse 95 100 Oximetry YANIRA score - Yanira Score Age > 65: (0) No Aspirin use within the Past 7 Days: (0) No 3 or more CAD Risk Factors: (0) No 2 or more Angina events in past 24 hrs: (0) No Known CAD with more than 50% Stenosis: (0) No Elevated Cardiac Markers: (0) No ST Deviation Greater than 0.5mm: (0) No YANIRA Score: 0 ED Medical Decision Making - Lab Data Result diagrams: 11/15/21 13:50 11/15/21 13:50 Lab Results 11/15/21 11/15/21 11/15/21 Range/Units 13:50 13:50 13:50 WBC 4.1 L (4.5-11.0) K/mm3 RBC 3.61 L (3.65-5.03) M/mm3 Hgb 13.8 (11.8-15.2) gm/dl Hct 40.0 (35.5-45.6) % MCV 111 H (84-94) fl MCH 38 H (28-32) pg MCHC 35 H (32-34) % RDW 15.1 (13.2-15.2) % Plt Count 190 (140-440) K/mm3 Lymph % (Auto) 28.9 (13.4-35.0) % [place] % (Auto) 4.9 (0.0-7.3) % Eos % (Auto) 0.7 (0.0-4.3) % Baso % (Auto) 0.9 (0.0-1.8) % Lymph # (Auto) 1.2 (1.2-5.4) K/mm3 [place] # (Auto) 0.2 (0.0-0.8) K/mm3 Eos # (Auto) 0.0 (0.0-0.4) K/mm3 Baso # (Auto) 0.0 (0.0-0.1) K/mm3 Seg Neutrophils % 64.6 (40.0-70.0) % Seg Neutrophils # 2.7 (1.8-7.7) K/mm3 PT 13.8 (12.2-14.9) Sec. INR 0.96 (0.87-1.13) APTT 29.4 (24.2-36.6) Sec. Sodium 139 (137-145) mmol/L Potassium 4.2 (3.6-5.0) mmol/L Chloride 99.9 (98-107) mmol/L Carbon Dioxide 22 (22-30) mmol/L Anion Gap 21 mmol/L BUN 6 L (9-20) mg/dL Creatinine 0.6 L (0.8-1.3) mg/dL Estimated GFR > 60 ml/min BUN/Creatinine Ratio 10 % Glucose 123 H (75-100) mg/dL Calcium 9.0 (8.4-10.2) mg/dL Phosphorus (2.5-4.5) mg/dL Magnesium (1.7-2.3) mg/dL Total Bilirubin 0.90 (0.1-1.2) mg/dL AST 210 H (5-40) units/L ALT 47 (7-56) units/L Alkaline Phosphatase 112 (35-129) units/L Troponin T < 0.010 (0.00-0.029) ng/mL Total Protein 7.5 (6.3-8.2) g/dL Albumin 4.5 (3.9-5) g/dL Albumin/Globulin Ratio 1.5 % Lipase 35 (13-60) units/L /11/07 Range/Units 13:50 WBC (4.5-11.0) K/mm3 RBC (3.65-5.03) M/mm3 Hgb (11.8-15.2) gm/dl Hct (35.5-45.6) % MCV (84-94) fl MCH (28-32) pg MCHC (32-34) % RDW (13.2-15.2) % Plt Count (140-440) K/mm3 Lymph % (Auto) (13.4-35.0) % [place] % (Auto) (0.0-7.3) % Eos % (Auto) (0.0-4.3) % Baso % (Auto) (0.0-1.8) % Lymph # (Auto) (1.2-5.4) K/mm3 [place] # (Auto) (0.0-0.8) K/mm3 Eos # (Auto) (0.0-0.4) K/mm3 Baso # (Auto) (0.0-0.1) K/mm3 Seg Neutrophils % (40.0-70.0) % Seg Neutrophils # (1.8-7.7) K/mm3 PT (12.2-14.9) Sec. INR (0.87-1.13) APTT (24.2-36.6) Sec. Sodium (137-145) mmol/L Potassium (3.6-5.0) mmol/L Chloride (98-107) mmol/L Carbon Dioxide (22-30) mmol/L Anion Gap mmol/L BUN (9-20) mg/dL Creatinine (0.8-1.3) mg/dL Estimated GFR ml/min BUN/Creatinine Ratio % Glucose (75-100) mg/dL Calcium (8.4-10.2) mg/dL Phosphorus 3.70 (2.5-4.5) mg/dL Magnesium 2.30 (1.7-2.3) mg/dL Total Bilirubin (0.1-1.2) mg/dL AST (5-40) units/L ALT (7-56) units/L Alkaline Phosphatase (35-129) units/L Troponin T (0.00-0.029) ng/mL Total Protein (6.3-8.2) g/dL Albumin (3.9-5) g/dL Albumin/Globulin Ratio % Lipase (13-60) units/L - EKG Data -: EKG Interpreted by Mi EKG shows normal: sinus rhythm, axis, intervals, QRS complexes, ST-T waves Rate: normal - EKG Data When compared to previous EKG there are: previous EKG unavailable Interpretation: normal EKG - Radiology Data Radiology results: image reviewed interpreted by me: Chest x-ray does not show any acute process. There are no pleural effusions, obvious pneumonia and there is no pneumothorax. No widened mediastinum. - Medical Decision Making This patient presents to the emergency department with a complaint of a few days of his left side "feeling weird." At first he describes it as numbness, but it seems that he is trying to express that he has some subjective weakness as if his arm and leg will "give out." On examination he does not have any focal, motor or sensory deficits and his cranial nerves are intact. He has bilateral upper and lower extremity 5 out of 5 muscle strength. He has a 0 on the NIH stroke scale. He also complains of some intermittent palpitations. Heart and lung sounds are normal to auscultation and the patient does not appear in any respiratory or acute distress. Labs have been unremarkable including CBC, metabolic panel, negative troponin, other than an elevated AST level. This is consistent with previous visits. Chest x-ray does not show any pneumonia, pleural effusions, pneumothorax, focal consolidation, widened mediastinum, or any other acute process. Vital signs reassuring throughout his ED course incl uding being afebrile. For all these reasons he appears safe for discharge home at this time. He has been given an outpatient referral for cardiology for the palpitations, and gastroenterology for the elevated AST level. We discussed avoiding Tylenol and alcohol. He will return to the emergency department with any worsening of his symptoms or with any acute distress. Critical Care Time: No Critical care attestation.: If time is entered above; I have spent that time in minutes in the direct care of this critically ill patient, excluding procedure time. ED Disposition Clinical Impression: Palpitations, Elevated liver enzymes, Weakness Disposition: 01 HOME / SELF CARE / HOMELESS Is pt being admited?: No Condition: Stable Instructions: Palpitations, Weakness Additional Instructions: Please follow-up with [facility] as previously scheduled. I am giving you a referral for [facility] to follow-up regarding your elevated liver enzymes. Because of the elevated liver enzymes, please avoid any alcohol or Tylenol/acetaminophen use. I am giving you a referral for a local foam gun operator, Dr. Pradhan, to follow-up regarding your palpitations. Try to avoid any excessive caffeine use and try to get 8 hours of uninterrupted sleep at night. Return to the emergency department with any worsening of your symptoms, new or concerning symptoms not addressed during this current emergency department visit, or with any acute distress. Referrals: CLEMENTINA PRADHAN MD [Staff Physician] - 3-5 Days [facility] [Provider Group] - 3-5 Days [facility] [Provider Group] - 3-5 Days Forms: Work/School Release Form(ED) Time of Disposition: 16:58 - Assessment Assessment Interval: Baseline - Level of Consciousness 1a. Level of Consciousness: alert/keenly responsive - LOC Questions 1b. LOC Questions: answers both correctly - LOC Command 1c. LOC Commands: performs tasks correctly - Best Gaze 2. Best Gaze: normal - Visual 3. Visual: no visual loss - Facial Palsy 4. Facial Palsy: normal symmetrical movement - Motor Arm 5a. Motor Arm Left: no drift 5b. Motor Arm Right: no drift - Motor Leg 6a. Motor Leg Left: no drift 6b. Motor Leg Right: no drift - Limb Ataxia 7. Limb Ataxia: absent - Sensory 8. Sensory: normal - Best Language 9. Best Language: no aphasia - Dysarthria 10. Dysarthria: normal - Extinction and Inattention 11. Extinction/Inattention: no abnormality - Scoring Total Score: 0 Stroke Severity: No Stroke Symptoms
--- NOTE | 2021-11-15 17:06 | XRay Report ---
XR chest routine 2V INDICATION / CLINICAL INFORMATION: palpitations. COMPARISON: 08/29/2020 FINDINGS: SUPPORT DEVICES: None. HEART /PULMONARY VASCULATURE: No significant abnormality. LUNGS / PLEURA: No significant pulmonary or pleural abnormality. No pneumothorax. ADDITIONAL FINDINGS: No significant additional findings. IMPRESSION: 1. No acute findings. Signer Name: Jun Ngo MD Signed: 11/15/2021 5:01 PM Workstation Name: [id number]
[2021-11-15 17:33] VITALS: BP 126/86
--- NOTE | 2021-11-16 13:23 | Electrocardiograph Report ---
[facility] Test Date: 2021-11-15 Test Time: 13:12:21 Pat Name: MESHA RUDD Department: Room: Gender: M Transferrer: BOO : 1985 Requested By: JULIO KLEIN Order Number: [id number] Reading MD: Siva Post Measurements Intervals [place] Rate: 104 P: 74 VT: 132 QRS: 20 QRSD: 77 T: 74 QT: 318 QTc: 418 Interpretive Statements Sinus tachycardia Early repolarization J-point elevation No previous ECG available for comparison Electronically Signed On 11-16-2021 13:23:31 EST by Siva Post
== END 2021-11-15 17:34 | disposition home or self-care (01) ==
LOC: ED 12:44
DX: R74.01 Elevation of levels of liver transaminase levels (principal); R53.1 Weakness; R00.2 Palpitations; I10 Essential (primary) hypertension; K21.9 Gastro-esophageal reflux disease without esophagitis; K76.9 Liver disease, unspecified; R56.9 Unspecified convulsions; F17.200 Nicotine dependence, unspecified, uncomplicated
CPT/HCPCS: 36415; 71046; 80053; 83690; 83735; 84100; 84484; 85025; 85610; 85730; 93005; 93010; 99283

== ENCOUNTER 2021-12-29 23:25 | Inpatient (IN) | payer SELFPAY ==
[2021-12-30] MEDS ORDERED: THIAMINE 100 MG, FOLIC ACID 1 MG, MULTIPLE VITAMIN INJ, ADULT 10 ML in SODIUM CHLORIDE ... IV ONE ×2 (03:19→12:00)
[2021-12-30 04:21] LABS: Basophils # (Auto) 0.1 K/mm3 (0.0-0.1); Basophils % (Auto) 1.3 % (0.0-1.8); Eosinophils # (Auto) 0.1 K/mm3 (0.0-0.4); Eosinophils % (Auto) 3.1 % (0.0-4.3); Hematocrit 35.4 % (35.5-45.6); Hemoglobin 12.3 gm/dl (11.8-15.2); Lymphocytes # (Auto) 2.1 K/mm3 (1.2-5.4); Mean Corpuscular HGB Conc 35 % (32-34); Mean Corpuscular Volume 118 fl (84-94); Monocytes # (Auto) 0.3 K/mm3 (0.0-0.8); Monocytes % (Auto) 6.8 % (0.0-7.3); Platelet Count 176 K/mm3 (140-440); Red Blood Count 3.02 M/mm3 (3.65-5.03); Red Cell Distribution Width 18.4 % (13.2-15.2)
--- NOTE | 2021-12-30 04:22 | Emergency Department Report ---
ED Alcohol HPI - General Chief Complaint: Alcohol Stated Complaint: WEAK Time Seen by Provider: 12/30/21 02:57 Source: patient Mode of arrival: Ambulatory Limitations: No Limitations - History of Present Illness Initial Comments: 36-year-old male alcoholic with a history of alcohol induced hepatitis presents to the hospital complaining his legs giving out earlier today and wanting help with alcohol detox. Patient states he was watching TV, stood up, and his legs felt weak and gave out. He denies head trauma or LOC. Patient admits to daily alcohol use with alcohol use today. He denies any pain. He is drowsy and appears to be intoxicated during exam. Patient requesting alcohol detox because he states that when he tries to cut back he has significant tremors. - Related Data Previous Rx's Medication Instructions Recorded Last Taken Type Famotidine [Pepcid] 20 mg PO BID #6 tablet 08/08/20 12/30/21 21:00 Rx Lactulose [Kristalose] 20 gm PO QDAY #30 packet 12/31/21 Unknown Rx Allergies Allergy/AdvReac Type Severity Reaction Status Date / Time No Known Allergies Allergy Verified 03/29/20 23:38 ED Review of Systems ROS: Stated complaint: WEAK Other details as noted in HPI Comment: All other systems reviewed and negative ED Past Medical Hx - Past Medical History Previous Medical History?: Yes Hx Hypertension: Yes Hx Heart Attack/AMI: No Hx GERD: Yes Hx Liver Disease: Yes (Alcohol hepatitis) Hx Renal Disease: No Hx Sickle Cell Disease: No Hx Seizures: Yes (08/24/20) Hx Asthma: No Hx COPD: No Additional medical history: cirrhosis of liver - Surgical History Past Surgical History?: No Hx Pacemaker: No Hx Internal Defibrillator: No - Social History Smoking Status: Never Smoker Substance Use Type: Alcohol - Medications Home Medications: Home Medications Medication Instructions Recorded Confirmed Last Taken Type Famotidine [Pepcid] 20 mg PO BID #6 tablet 08/08/20 12/31/21 12/30/21 21:00 Rx Lactulose [Kristalose] 20 gm PO QDAY #30 packet 12/31/21 Unknown Rx ED Physical Exam - General Limitations: No Limitations - Other Other exam information: General: No acute distress Head: Atraumatic Eyes: normal appearance ENT: Moist mucous membranes Neck: Normal appearance, no midline tenderness Chest: Clear to auscultation bilaterally CV: Regular rate and rhythm Abdomen: Soft, normal bowel sounds, nontender, nondistended, no rebound or guarding Back: Normal inspection Extremity: Normal inspection, full range of motion Neuro: Drowsy but oriented , no facial asymmetry, speech clear, no gross motor sensory deficit Psych: Appropriate behavior Skin: No rash ED Course Vital Signs 12/30/21 12/30/21 12/30/21 00:46 02:36 02:37 Temperature 97.9 F Pulse Rate 105 H 104 H 99 H Respiratory 12 13 14 Rate Blood Pressure Blood Pressure 125/95 [Right] O2 Sat by Pulse 100 97 98 Oximetry 12/30/21 12/30/21 12/30/21 02:39 02:41 02:43 Temperature Pulse Rate 105 H 100 H 99 H Respiratory 12 17 19 Rate Blood Pressure Blood Pressure [Right] O2 Sat by Pulse 100 100 98 Oximetry 12/30/21 12/30/21 12/30/21 02:45 02:48 02:50 Temperature Pulse Rate 95 H 102 H Respiratory 14 20 Rate Blood Pressure 127/89 Blood Pressure [Right] O2 Sat by Pulse 100 99 99 Oximetry 12/30/21 12/30/21 12/30/21 05:05 05:07 05:09 Temperature Pulse Rate 92 H 91 H 93 H Respiratory 13 13 13 Rate Blood Pressure 128/89 128/89 128/89 Blood Pressure [Right] O2 Sat by Pulse 99 99 99 Oximetry 12/30/21 12/30/21 12/30/21 05:11 05:13 05:15 Temperature Pulse Rate 94 H 96 H 93 H Respiratory 13 15 12 Rate Blood Pressure 128/89 128/89 128/89 Blood Pressure [Right] O2 Sat by Pulse 98 98 98 Oximetry 12/30/21 12/30/21 12/30/21 05:17 05:19 05:21 Temperature Pulse Rate 93 H 92 H 92 H Respiratory 13 13 13 Rate Blood Pressure 128/89 128/89 128/89 Blood Pressure [Right] O2 Sat by Pulse 98 98 98 Oximetry 12/30/21 12/30/21 12/30/21 05:22 05:23 05:25 Temperature Pulse Rate 93 H 97 H 96 H Respiratory 13 13 12 Rate Blood Pressure 112/84 112/84 112/84 Blood Pressure [Right] O2 Sat by Pulse 97 97 Oximetry 12/30/21 12/30/21 12/30/21 05:27 05:29 05:31 Temperature Pulse Rate 95 H 95 H 94 H Respiratory 13 13 13 Rate Blood Pressure 112/84 112/84 112/84 Blood Pressure [Right] O2 Sat by Pulse 97 97 97 Oximetry 12/30/21 12/30/21 12/30/21 05:33 05:35 05:37 Temperature Pulse Rate 94 H 95 H 96 H Respiratory 13 14 13 Rate Blood Pressure 112/84 112/84 112/84 Blood Pressure [Right] O2 Sat by Pulse 97 97 97 Oximetry 12/30/21 12/30/21 12/30/21 05:39 05:41 05:43 Temperature Pulse Rate 97 H 96 H 98 H Respiratory 13 13 13 Rate Blood Pressure 112/84 112/84 112/84 Blood Pressure [Right] O2 Sat by Pulse 97 97 97 Oximetry 12/30/21 12/30/21 12/30/21 05:45 05:47 05:49 Temperature Pulse Rate 99 H 101 H 99 H Respiratory 13 14 14 Rate Blood Pressure 112/84 112/84 112/84 Blood Pressure [Right] O2 Sat by Pulse 97 97 97 Oximetry 12/30/21 12/30/21 12/30/21 05:51 05:52 05:53 Temperature Pulse Rate 99 H 100 H 99 H Respiratory 13 13 13 Rate Blood Pressure 112/84 116/82 116/82 Blood Pressure [Right] O2 Sat by Pulse 97 97 Oximetry 12/30/21 12/30/21 12/30/21 05:55 05:57 05:59 Temperature Pulse Rate 98 H 101 H 100 H Respiratory 14 14 14 Rate Blood Pressure 116/82 116/82 116/82 Blood Pressure [Right] O2 Sat by Pulse 97 97 97 Oximetry 12/30/21 12/30/21 12/30/21 06:01 06:03 06:05 Temperature Pulse Rate 102 H 98 H 99 H Respiratory 14 14 13 Rate Blood Pressure 116/82 116/82 116/82 Blood Pressure [Right] O2 Sat by Pulse 97 98 98 Oximetry 12/30/21 12/30/21 12/30/21 06:07 06:09 06:11 Temperature Pulse Rate 97 H 96 H 95 H Respiratory 13 13 13 Rate Blood Pressure 116/82 116/82 116/82 Blood Pressure [Right] O2 Sat by Pulse 97 97 97 Oximetry 04/12/30/21 12/30/21 06:13 06:15 06:17 Temperature Pulse Rate 97 H 96 H 95 H Respiratory 13 13 13 Rate Blood Pressure 116/82 116/82 116/82 Blood Pressure [Right] O2 Sat by Pulse 97 97 97 Oximetry 12/30/21 12/30/21 12/30/21 06:19 06:21 06:22 Temperature Pulse Rate 96 H 96 H 95 H Respiratory 13 13 13 Rate Blood Pressure 116/82 116/82 109/79 Blood Pressure [Right] O2 Sat by Pulse 96 96 99 Oximetry 12/30/21 12/30/21 12/30/21 06:23 06:25 06:27 Temperature Pulse Rate 96 H 98 H 96 H Respiratory 13 14 12 Rate Blood Pressure 109/79 109/79 109/79 Blood Pressure [Right] O2 Sat by Pulse 96 96 96 Oximetry 12/30/21 12/30/21 12/30/21 06:29 06:31 06:33 Temperature Pulse Rate 96 H 96 H 96 H Respiratory 13 13 14 Rate Blood Pressure 109/79 109/79 109/79 Blood Pressure [Right] O2 Sat by Pulse 97 96 97 Oximetry 12/30/21 12/30/21 12/30/21 06:35 06:37 07:01 Temperature Pulse Rate 96 H 95 H 92 H Respiratory 13 12 13 Rate Blood Pressure 109/79 109/79 118/86 Blood Pressure [Right] O2 Sat by Pulse 97 97 98 Oximetry 12/30/21 12/30/21 12/30/21 08:01 09:01 10:01 Temperature Pulse Rate 91 H 92 H 98 H Respiratory 13 12 11 L Rate Blood Pressure 111/79 110/75 107/83 Blood Pressure [Right] O2 Sat by Pulse 99 98 99 Oximetry 12/30/21 12/30/21 12/30/21 11:01 12:01 13:01 Temperature Pulse Rate 92 H 89 86 Respiratory 14 13 13 Rate Blood Pressure 117/87 110/85 122/86 Blood Pressure [Right] O2 Sat by Pulse 94 99 100 Oximetry 12/30/21 12/30/21 12/30/21 14:01 15:01 16:01 Temperature Pulse Rate Respiratory 14 9 L 13 Rate Blood Pressure 121/82 132/81 119/87 Blood Pressure [Right] O2 Sat by Pulse 92 100 98 Oximetry 12/30/21 12/30/2122 17:01 18:01 18:11 Temperature Pulse Rate Respiratory 19 12 14 Rate Blood Pressure 136/99 134/94 134/94 Blood Pressure [Right] O2 Sat by Pulse 98 96 98 Oximetry 12/30/21 18:26 Temperature 98.9 F Pulse Rate 86 Respiratory 18 Rate Blood Pressure 136/96 Blood Pressure [Right] O2 Sat by Pulse 97 Oximetry ED Medical Decision Making - Lab Data Result diagrams: 12/31/21 05:49 12/31/21 05:49 Lab Results 12/30/21 12/30/21 12/30/21 Range/Units 03:57 03:57 03:57 WBC 4.7 (4.5-11.0) K/mm3 RBC 3.02 L (3.65-5.03) M/mm3 Hgb 12.3 (11.8-15.2) gm/dl Hct 35.4 L (35.5-45.6) % MCV 118 H (84-94) fl MCH 41 H (28-32) pg MCHC 35 H (32-34) % RDW 18.4 H (13.2-15.2) % Plt Count 176 (140-440) K/mm3 Lymph % (Auto) 44.0 H (13.4-35.0) % [place] % (Auto) 6.8 (0.0-7.3) % Eos % (Auto) 3.1 (0.0-4.3) % Baso % (Auto) 1.3 (0.0-1.8) % Lymph # (Auto) 2.1 (1.2-5.4) K/mm3 [place] # (Auto) 0.3 (0.0-0.8) K/mm3 Eos # (Auto) 0.1 (0.0-0.4) K/mm3 Baso # (Auto) 0.1 (0.0-0.1) K/mm3 Seg Neutrophils % 44.8 (40.0-70.0) % Seg Neutrophils # 2.1 (1.8-7.7) K/mm3 Sodium 145 (137-145) mmol/L Potassium 3.8 (3.6-5.0) mmol/L Chloride 106.2 (98-107) mmol/L Carbon Dioxide 26 (22-30) mmol/L Anion Gap 17 mmol/L BUN 10 (9-20) mg/dL Creatinine 0.5 L (0.8-1.3) mg/dL Estimated GFR > 60 ml/min BUN/Creatinine Ratio 20 % Glucose 106 H (75-100) mg/dL Calcium 8.1 L (8.4-10.2) mg/dL Magnesium 2.00 (1.7-2.3) mg/dL Total Bilirubin 0.40 (0.1-1.2) mg/dL AST 258 H (5-40) units/L ALT 44 (7-56) units/L Alkaline Phosphatase 103 (35-129) units/L Ammonia 105.0 H (25-60) umol/L Total Protein 6.8 (6.3-8.2) g/dL Albumin 4.2 (3.9-5) g/dL Albumin/Globulin Ratio 1.6 % Urine Opiates Screen Urine Methadone Screen Ur Barbiturates Screen Ur Phencyclidine Scrn Ur Amphetamines Screen U Benzodiazepines Scrn Urine Cocaine Screen U Marijuana (THC) Screen Plasma/Serum Alcohol (0-0.07) % 12/30/21 12/30/21 Range/Units 03:57 04:30 WBC (4.5-11.0) K/mm3 RBC (3.65-5.03) M/mm3 Hgb (11.8-15.2) gm/dl Hct (35.5-45.6) % MCV (84-94) fl MCH (28-32) pg MCHC (32-34) % RDW (13.2-15.2) % Plt Count (140-440) K/mm3 Lymph % (Auto) (13.4-35.0) % [place] % (Auto) (0.0-7.3) % Eos % (Auto) (0.0-4.3) % Baso % (Auto) (0.0-1.8) % Lymph # (Auto) (1.2-5.4) K/mm3 [place] # (Auto) (0.0-0.8) K/mm3 Eos # (Auto) (0.0-0.4) K/mm3 Baso # (Auto) (0.0-0.1) K/mm3 Seg Neutrophils % (40.0-70.0) % Seg Neutrophils # (1.8-7.7) K/mm3 Sodium (137-145) mmol/L Potassium (3.6-5.0) mmol/L Chloride (98-107) mmol/L Carbon Dioxide (22-30) mmol/L Anion Gap mmol/L BUN (9-20) mg/dL Creatinine (0.8-1.3) mg/dL Estimated GFR ml/min BUN/Creatinine Ratio % Glucose (75-100) mg/dL Calcium (8.4-10.2) mg/dL Magnesium (1.7-2.3) mg/dL Total Bilirubin (0.1-1.2) mg/dL AST (5-40) units/L ALT (7-56) units/L Alkaline Phosphatase (35-129) units/L Ammonia (25-60) umol/L Total Protein (6.3-8.2) g/dL Albumin (3.9-5) g/dL Albumin/Globulin Ratio % Urine Opiates Screen Presumptive negative Urine Methadone Screen Presumptive negative Ur Barbiturates Screen Presumptive negative Ur Phencyclidine Scrn Presumptive negative Ur Amphetamines Screen Presumptive negative U Benzodiazepines Scrn Presumptive positive Urine Cocaine Screen Presumptive negative U Marijuana (THC) Screen Presumptive negative Plasma/Serum Alcohol 0.31 H (0-0.07) % - Medical Decision Making 36-year-old alcoholic presents with acute alcohol intoxication and elevated ammonia level. Lactulose ordered in the ED, banana bag, and CIWA protocol ordered in anticipation of withdrawal symptoms. Patient desires alcohol detox. Mental health evaluation ordered. Case discussed with hospitalist Dr. Hope for admission Critical Care Time: No Critical care attestation.: If time is entered above; I have spent that time in minutes in the direct care of this critically ill patient, excluding procedure time. ED Disposition Clinical Impression: Acute alcohol intoxication, Alcohol abuse, Hepatic encephalopathy Disposition: ADMITTED INPATIENT Is pt being admited?: Yes Condition: Stable Time of Disposition: 05:21 (Dr Hope informed)
[2021-12-30 04:42] LABS: Alanine Aminotransferase 44 units/L (7-56); Albumin 4.2 g/dL (3.9-5); Blood Urea Nitrogen 10 mg/dL (9-20); Calcium 8.1 mg/dL (8.4-10.2); Hemolysis Index 9
[2021-12-30 04:43] LABS: BUN/Creatinine Ratio 20
[2021-12-30 04:47] LABS: Amphetamine Screen,Urine PRESUMPTIVE NEGATIVE; Benzodiazepines Screen,Urine PRESUMPTIVE POSITIVE; Cannabinoid Screen,Urine PRESUMPTIVE NEGATIVE; Cocaine Screen,Urine PRESUMPTIVE NEGATIVE; Methadone Screen,Urine PRESUMPTIVE NEGATIVE; Opiate Screen,Urine PRESUMPTIVE NEGATIVE
[2021-12-30] MEDS ORDERED: LACTULOSE 20 GM/30 ML ORAL LIQD PO ONE ×2 (05:15→13:00)
[2021-12-30] MEDS ORDERED: LORazepam 2 MG TAB PO PRN (05:20)
--- NOTE | 2021-12-30 08:11 | History and Physical Report ---
History of Present Illness Date of examination: 12/30/21 Date of admission: 12/30/21 Chief complaint: Alcohol intoxication delirious History of present illness: Patient is 36-year-old male alcoholic with a history of hypertension, GERD, peptic ulcer disease with anemia requiring transfusions in the past, alcohol induced hepatitis presents to the hospital complaining his legs giving out earlier today and wanting help with alcohol detox. Patient states he was watch ing TV, stood up, and his legs felt weak and gave out. He denies head trauma or LOC. Patient admits to daily alcohol use with alcohol use today. He denies any pain. He is drowsy and appears to be intoxicated during exam. Patient requesting alcohol detox because he states that when he tries to cut back he has significant tremors. On admission he was noted to have elevated ammonia level of 100 and was very drowsy and lethargic. No evidence of withdrawal or delirium tremens but his speech was delirious. He unfortunately continues to drink alcohol despite multiple counseling given in the past. Head the ER he received a banana bag, CIWA protocol was ordered and applied. Mental health consultation was also done. Information obtained from the chart of my discussion with him he is not coh erent, review of last hospitalization shows that he left AGAINST MEDICAL ADVICE. He does not show any evidence of GI bleed at this time. He denies any seizures Past History Past Medical History: hypertension, hyperlipidemia, other (EtOH) Past Surgical History: No surgical history Social history: alcohol abuse, full code Family history: no significant family history Medications and Allergies Allergies Allergy/AdvReac Type Severity Reaction Status Date / Time No Known Allergies Allergy Verified 03/29/20 23:38 Home Medications Medication Instructions Recorded Confirmed Last Taken Type Folic Acid [Folvite] 1 mg PO QDAY #30 tablet 04/12/20 08/25/20 Unknown Rx Multivitamin Tab [Multiple Vitamin 1 each PO QDAY #30 tablet 04/12/20 08/25/20 Unknown Rx TAB (Theragran)] Thiamine [Vitamin B-1] 100 mg PO QDAY #30 tablet 04/12/20 08/25/20 Unknown Rx atenoloL [Tenormin] 25 mg PO QDAY #30 tablet 04/12/20 08/25/20 Unknown Rx Famotidine [Pepcid] 20 mg PO BID #6 tablet 08/08/20 08/25/20 Unknown Rx diphenhydrAMINE [Benadryl CAP] 50 mg PO Q6HR #24 capsule 08/08/20 08/25/20 Unknown Rx Active Meds: Active Medications Lorazepam (Lorazepam 2 Mg Tab) 2 mg PO Q1HR PRN PRN Reason: CIWA-Ar 8-15 Lorazepam (Lorazepam 2 Mg Tab) 4 mg PO Q1HR PRN PRN Reason: CIWA-Ar 16-25 Review of Systems All systems: negative Constitutional: fatigue, lethargy Cardiovascular: syncope Exam - Physical Exam Narrative exam: VITAL SIGNS: Reviewed. GENERAL: The patient appears normally developed, Vital signs as documented. HEAD: No signs of head trauma. EYES: Pupils are equal. Extraocular motions intact. EARS: Hearing grossly intact. MOUTH: Oropharynx is normal. NECK: No adenopathy, no JVD. CHEST: Chest with clear breath sounds bilaterally. No wheezes, rales, or rhon chi. CARDIAC: Regular rate and rhythm. S1 and S2, without murmurs, gallops, or rubs. VASCULAR: No Edema. Peripheral pulses normal and equal in all extremities. ABDOMEN: Soft, non tender and non distended. No rebound or guarding, and no masses palpated. Bowel Sounds normal. MUSCULOSKELETAL: Good range of motion of all major joints. Extremities without clubbing, cyanosis or edema. NEUROLOGIC EXAM: Somnolent, oriented to person no focal sensory or strength deficits. Speech slurred. Follows some commands. PSYCHIATRIC: Mood normal. SKIN: detail exam as documented in skin assessment - Constitutional Vitals: Temp Pulse Resp BP Pulse Ox 97.9 F 95 H 12 109/79 97 12/30/21 00:46 12/30/21 06:37 12/30/21 06:37 12/30/21 06:37 12/30/21 06:37 Results - Labs CBC & Chem 7: 12/30/21 03:57 12/30/21 03:57 Labs: Laboratory Last Values WBC 4.7 K/mm3 (4.5-11.0) 12/30/21 03:57 RBC 3.02 M/mm3 (3.65-5.03) L 12/30/21 03:57 Hgb 12.3 gm/dl (11.8-15.2) 12/30/21 03:57 Hct 35.4 % (35.5-45.6) L 12/30/21 03:57 MCV 118 fl (84-94) H 12/30/21 03:57 MCH 41 pg (28-32) H 12/30/21 03:57 MCHC 35 % (32-34) H 12/30/21 03:57 RDW 18.4 % (13.2-15.2) H 12/30/21 03:57 Plt Count 176 K/mm3 (140-440) 12/30/21 03:57 Lymph % (Auto) 44.0 % (13.4-35.0) H 12/30/21 03:57 [place] % (Auto) 6.8 % (0.0-7.3) 12/30/21 03:57 Eos % (Auto) 3.1 % (0.0-4.3) 12/30/21 03:57 Baso % (Auto) 1.3 % (0.0-1.8) 12/30/21 03:57 Lymph # (Auto) 2.1 K/mm3 (1.2-5.4) 12/30/21 03:57 [place] # (Auto) 0.3 K/mm3 (0.0-0.8) 12/30/21 03:57 Eos # (Auto) 0.1 K/mm3 (0.0-0.4) 12/30/21 03:57 Baso # (Auto) 0.1 K/mm3 (0.0-0.1) 12/30/21 03:57 Seg Neutrophils % 44.8 % (40.0-70.0) 12/30/21 03:57 Seg Neutrophils # 2.1 K/mm3 (1.8-7.7) 12/30/21 03:57 Sodium 145 mmol/L (137-145) 12/30/21 03:57 Potassium 3.8 mmol/L (3.6-5.0) 12/30/21 03:57 Chloride 106.2 mmol/L (98-107) 12/30/21 03:57 Carbon Dioxide 26 mmol/L (22-30) 12/30/21 03:57 Anion Gap 17 mmol/L 12/30/21 03:57 BUN 10 mg/dL (9-20) 12/30/21 03:57 Creatinine 0.5 mg/dL (0.8-1.3) L 12/30/21 03:57 Estimated GFR > 60 ml/min 12/30/21 03:57 BUN/Creatinine Ratio 20 % 12/30/21 03:57 Glucose 106 mg/dL (75-100) H 12/30/21 03:57 Calcium 8.1 mg/dL (8.4-10.2) L 12/30/21 03:57 Magnesium 2.00 mg/dL (1.7-2.3) 12/30/21 03:57 Total Bilirubin 0.40 mg/dL (0.1-1.2) 12/30/21 03:57 AST 258 units/L (5-40) H 12/30/21 03:57 ALT 44 units/L (7-56) 12/30/21 03:57 Alkaline Phosphatase 103 units/L (35-129) 12/30/21 03:57 Ammonia 105.0 umol/L (25-60) H 12/30/21 03:57 Total Protein 6.8 g/dL (6.3-8.2) 12/30/21 03:57 Albumin 4.2 g/dL (3.9-5) 12/30/21 03:57 Albumin/Globulin Ratio 1.6 % 12/30/21 03:57 Urine Opiates Screen Presumptive negative 12/30/21 04:30 Urine Methadone Screen Presumptive negative 12/30/21 04:30 Ur Barbiturates Screen Presumptive negative 12/30/21 04:30 Ur Phencyclidine Scrn Presumptive negative 12/30/21 04:30 Ur Amphetamines Screen Presumptive negative 12/30/21 04:30 U Benzodiazepines Scrn Presumptive positive 12/30/21 04:30 Urine Cocaine Screen Presumptive negative 12/30/21 04:30 U Marijuana (THC) Screen Presumptive negative 12/30/21 04:30 Drugs of Abuse Note Disclamer 12/30/21 04:30 Plasma/Serum Alcohol 0.31 % (0-0.07) H 12/30/21 03:57 Assessment and Plan Assessment and plan: Patient is 36-year-old male alcoholic with a history of hypertension, GERD, peptic ulcer disease with anemia requiring transfusions in the past, alcohol induced hepatitis presents to the hospital complaining his legs giving out earlier today and wanting help with alcohol detox. Patient states he was watching TV, stood up, and his legs felt weak and gave out. He denies head trauma or LOC. Patient admits to daily alcohol use with alcohol use today. He denies any pain. He is drowsy and appears to be intoxicated during exam. Patient requesting alcohol detox because he states that when he tries to cut back he has significant tremors. On admission he was noted to have elevated ammonia level of 100 and was very [place] and lethargic. No evidence of withdrawal or delirium tremens but his speech was delirious. He unfortunately continues to drink alcohol despite multiple counseling given in the past. Head the ER he received a banana bag, CIWA protocol was ordered and applied. Mental health consultation was also done. Information obtained from the chart of my discussion with him he is not coherent, review of last hospitalization shows that he left AGAINST MEDICAL ADVICE. He does not show any evidence of GI bleed at this time. CT head and Echo ordered and pending Acute alcohol intoxication, Delirium Alcohol abuse, with mild withdrawal symptoms evidenced by tachycardia Autonomic dysfunction Hepatic encephalopathy Hyperammonemia HX OF PUD plan ADMIT TO MED Continue CIWA protocol Monitor for DTs and seizure precaution H2 CRISTOPHER Banana bag Lactulose Aspiration precautions monitor electrolytes Repeat ammonia level We will provide extensive counseling with patient is more sober. DVT and GI prophylax Advance Directives: Yes Plan of care discussed with patient/family: Yes
[2021-12-30] MEDS ORDERED: LORazepam 2 MG/ML VIAL IV ONE (08:48)
[2021-12-30] MEDS ORDERED: ALBUTEROL 2.5 MG/3 ML NEBU IH PRN (09:00)
[2021-12-30] MEDS ORDERED: MORPHINE 2 MG/1 ML INJ IV PRN (09:00)
[2021-12-30] MEDS ORDERED: ONDANSETRON 4 MG/2 ML INJ IV PRN (09:00)
[2021-12-30] MEDS ORDERED: NALOXONE 0.4 MG/1 ML INJ IV PRN (09:00)
[2021-12-30] MEDS ORDERED: ACETAMINOPHEN 325 MG TAB PO PRN (09:00)
[2021-12-30] MEDS ORDERED: METOCLOPRAMIDE 10 MG/2 ML INJ IV PRN (09:00)
--- NOTE | 2021-12-30 11:38 | Cat Scan Report ---
CT HEAD WITHOUT CONTRAST INDICATION / CLINICAL INFORMATION: syncope. TECHNIQUE: All CT scans at this location are performed using CT dose reduction for ALARA by means of automated exposure control. COMPARISON: CT dated 08/27/20 FINDINGS: HEMORRHAGE: None. EXTRA-AXIAL SPACES: Moderately prominent likely related to cortical atrophy. No change. VENTRICULAR SYSTEM: Normal in size and morphology for the patient's age. CEREBRAL PARENCHYMA: No significant abnormality. No acute territorial infarct. MIDLINE SHIFT / HERNIATION: None. CEREBELLUM / BRAINSTEM: Mild cerebellar atrophy, unchanged. ORBITS: Normal as visualized. SOFT TISSUES: No significant abnormality. SKULL: No significant abnormality. PARANASAL SINUSES / MASTOID AIR CELLS: Normal as visualized. ADDITIONAL FINDINGS: None. IMPRESSION: 1. No acute intracranial abnormality. 2. Chronic and age-related findings appear stable. Signer Name: Zaid Edmond MD Signed: 12/30/2021 11:34 AM Workstation Name: [id number]
[2021-12-30] MEDS: SENNOSIDES 8.6 MG TAB PO SCH ×2 (12:07→21:19)
[2021-12-30] MEDS: FAMOTIDINE 20 MG/2 ML INJ IV SCH ×2 (12:07→21:18)
[2021-12-30] MEDS: LORazepam 2 MG TAB PO PRN ×2 (12:07→23:18)
[2021-12-31 05:26] VITALS: BP 143/95
[2021-12-31 06:29] LABS: Basophils % (Auto) 0.9 % (0.0-1.8); Eosinophils # (Auto) 0.1 K/mm3 (0.0-0.4); Eosinophils % (Auto) 1.7 % (0.0-4.3); Hematocrit 29.1 % (35.5-45.6); Lymphocytes # (Auto) 1.6 K/mm3 (1.2-5.4); Lymphocytes % (Auto) 30.7 % (13.4-35.0); Mean Corpuscular HGB Conc 34 % (32-34); Mean Corpuscular Volume 119 fl (84-94); Monocytes # (Auto) 0.4 K/mm3 (0.0-0.8); Monocytes % (Auto) 7.5 % (0.0-7.3); Platelet Count 165 K/mm3 (140-440); Red Blood Count 2.45 M/mm3 (3.65-5.03)
[2021-12-31 06:40] LABS: Alanine Aminotransferase 37 units/L (7-56); Albumin 3.8 g/dL (3.9-5); Blood Urea Nitrogen 8 mg/dL (9-20); Hemolysis Index 7
[2021-12-31 06:52] LABS: BUN/Creatinine Ratio 13
[2021-12-31] MEDS ORDERED: POTASSIUM CHLORIDE ER 20 MEQ TAB PO ONE (08:18)
[2021-12-31] MEDS: FAMOTIDINE 20 MG/2 ML INJ IV SCH (09:17)
[2021-12-31] MEDS: SENNOSIDES 8.6 MG TAB PO SCH (09:17)
--- NOTE | 2021-12-31 09:41 | Discharge Summary ---
Providers - Providers Date of Admission: 12/30/21 08:20 Date of discharge: 12/31/21 Attending physician: YANCY ARIAS Primary care physician: HURL SHAKER Hospitalization Reason for admission: AMS Condition: Stable Hospital course: Patient is 36-year-old male alcoholic with a history of hypertension, GERD, peptic ulcer disease with anemia requiring transfusions in the past, alcohol induced hepatitis presented to the hospital complaining his legs giving out earlier the day [employer] and wanting help with alcohol detox. Patient stated he was watching TV, stood up, and his legs felt weak and gave out. He denied head trauma or LOC. Patient admits to daily alcohol use with alcohol use on the day of admission. He denied any pain. He was drowsy and appeared to be intoxicated during exam per admitting physician. Patient requested alcohol detox because he stated that when he tries to cut back he has significant tremors. On admission he was noted to have elevated ammonia level of 100 and was very drowsy and lethargic. No evidence of withdrawal or delirium tremens but his speech was delirious. He unfortunately continues to drink alcohol despite multiple counseling given in the past. In the ER, he received a banana bag, CIWA protocol was ordered and applied. Mental health consultation was also done. The patient was admitted with diagnosis of acute alcohol intoxication, delirium, alcohol abuse with mild withdrawal symptoms, autonomic dysfunction, hepatic encephalopathy and hyperammonemia. The patient was found to have an ammonia level of 71 on admission which improved to 53 and normal at discharge. Upon my evaluation this morning, patient is back to baseline mental status. Patient is alert and oriented x4. Patient states that he would like to go home. I discussed with case management to give outpatient detox centers and treatment for alcohol. Patient is felt to have received maximal hospital benefit and will be discharged home. Patient will be discharged with a prescription for lactulose. Patient was counseled on alcohol cessation. Dedicated discharge time 35 minutes. Disposition: 01 HOME / SELF CARE / HOMELESS Final Discharge Diagnosis (Prints w/discharge instructions): acute alcohol intoxication, delirium, alcohol abuse with mild withdrawal symptoms, autonomic dysfunction, hepatic encephalopathy and hyperammonemia. Core Measure Documentation - Palliative Care Palliative Care/ Comfort Measures: Not Applicable - Core Measures Any of the following diagnoses?: none Exam - Constitutional Vitals: Temp Pulse Resp BP Pulse Ox 98.4 F 70 20 143/95 100 12/31/21 05:24 04/17/22 05:24 12/31/21 05:24 12/31/21 05:24 12/31/21 05:24 General appearance: Present: no acute distress, well-nourished - EENT Eyes: Present: PERRL ENT: hearing intact, clear oral mucosa - Neck Neck: Present: supple, normal ROM - Respiratory Respiratory effort: normal Respiratory: bilateral: CTA - Cardiovascular Heart Sounds: Present: S1 & S2. Absent: rub, click - Extremities Extremities: pulses symmetrical, No edema Peripheral Pulses: within normal limits - Abdominal General gastrointestinal: Present: soft, non-tender, non-distended, normal bowel sounds Male genitourinary: Present: normal - Integumentary Integumentary: Present: clear, warm, dry - Musculoskeletal Musculoskeletal: gait normal, strength equal bilaterally - Psychiatric Psychiatric: appropriate mood/affect, intact judgment & insight - Neurologic Neurologic: CNII-XII intact, moves all extremities Plan Activity: advance as tolerated Weight Bearing Status: Weight Bear as Tolerated Diet: regular Special Instructions: other (Alcohol cessation) Follow up with: PRIMARY CARE, [Primary Care Provider] - 7 Days Prescriptions: Lactulose [Kristalose] 20 gm PO QDAY #30 packet
== END 2021-12-31 13:34 | disposition home or self-care (01) | DRG 442 ==
LOC: ED 23:25 → 3A 12-30 08:20
PROVIDERS: ADMIT Internal Medicine; ATTEND Hospitalist
DX: K72.90 Hepatic failure, unspecified without coma (principal); E72.20 Disorder of urea cycle metabolism, unspecified; F10.121 Alcohol abuse with intoxication delirium; K70.10 Alcoholic hepatitis without ascites; I10 Essential (primary) hypertension; K21.9 Gastro-esophageal reflux disease without esophagitis; E78.5 Hyperlipidemia, unspecified
CPT/HCPCS: 36415; 70450; 80053; 80307; 80320; 82140; 82962; 83690; 83735; 84100; 85025; 85379; 87641; 93306; G0378; J3490; Q0162; C8929; G0480; J3411; J7030